=== PATIENT | male | born 1960 | race Caucasian/White ===

== ENCOUNTER 2017-01-05 11:29 | Day surgery (SDC) | payer OTHER ==
[2017-01-04 10:02] VITALS: BMI 27.8
[~2017-01-05 11:29] MED LIST: LACTATED RINGERS 1,000 ML IV SCH; LIDOCAINE 1% 20 ML VIAL (10MG/ML) FOR IV START INTRADERMA PRN
[2017-01-05 12:46] VITALS: TEMP 96.9
[2017-01-05] MEDS ORDERED: PROPOFOL 10 MG/ML 20 ML VIAL IV ONE (13:46)
[2017-01-05 14:37] VITALS: RESP 16
[2017-01-05 15:05] VITALS: BP 154/78; PULSE 78
--- NOTE | 2017-01-05 16:34 | P.PCN ---
Date of Procedure: 01/05/17 Preoperative Diagnosis: Postoperative Diagnosis: Procedure(s) Performed: Procedure: Colonoscopy and polypectomy. Preoperative diagnosis: Positive blood in the stools. Postoperative diagnosis: 1. Multiple small polyps, snared, but no large polyps or cancer. 2. Sigmoid diverticulosis with mucosal changes in the vicinity of diverticular orifices raising the possibility of prior bout(s) of diverticulitis. Preparation: HalfLytely prep. Sedation: Was provided by anesthesia. Brief clinical history: The patient is a 56-year-old male who is referred for this evaluation because of finding blood in his stools. He denied any abdominal symptoms, change in bowel habits or overt bleeding. Procedure: With the patient on his left lateral decubitus position and after informed consent and adequate sedation, the perianal area was inspected and it did not show any fissures or fistulas. There were no masses felt on digital rectal examination. The Olympus CFQ 160L video colonoscope was then inserted in the rectum in the usual fashion and advanced to the cecum. There was a small polyp in the cecum which was snared and retrieved by suction and there were multiple small polyps that were snared in the sigmoid, 2 of them where in the proximal sigmoid and 4 were in the distal sigmoid, and were submitted in 1 container. No large polyps or cancer were seen or any evidence of bleeding. I retroflexed the endoscope in the rectum before the endoscope was withdrawn. The patient tolerated the procedure well. Plan: The patient was reassured. Discussed dietary measures and I recommended repeat colonoscopy in 3 years. He will follow up with you as planned. Implants: Indications for Procedure: Operative Findings: Description of Procedure:
== END 2017-01-05 15:22 | disposition home or self-care (01) ==
LOC: ORWHC2ENDO 11:29
DX: D12.0 Benign neoplasm of cecum (principal); D12.5 Benign neoplasm of sigmoid colon; K57.30 Diverticulosis of large intestine without perforation or abscess without bleeding; I10 Essential (primary) hypertension; E78.5 Hyperlipidemia, unspecified; F17.200 Nicotine dependence, unspecified, uncomplicated; Z88.2 Allergy status to sulfonamides; Z79.899 Other long term (current) drug therapy
CPT/HCPCS: 45385; 88305; 88342; 88341; J2704

== ENCOUNTER 2017-03-18 12:34 | Inpatient (IN) | payer OTHER ==
[2017-03-18] MEDS ORDERED: RX INFO: IV CONTRAST WAS GIVEN 1 EACH MISC MISCELLANE PRN (13:03)
[2017-03-18] MEDS ORDERED: SODIUM CHLORIDE 0.9% 1,000 ML IV ONE (13:36)
[2017-03-18] MEDS: SODIUM CHLORIDE 0.9% 1,000 ML IV SCH ×3 (13:38→23:46)
--- NOTE | 2017-03-18 13:38 | ED ---
Abdominal Pain HPI <Sharath Martin - Last Filed: 03/18/17 17:06> - General Source: patient, RN notes reviewed, old records reviewed Mode of arrival: ambulatory Limitations: no limitations <Elham Morgan - Last Filed: 03/19/17 07:12> - General Chief Complaint: Abdominal Pain Stated Complaint: Abd Pain Time Seen by Provider: 03/18/17 12:48 - History of Present Illness Initial Comments: This is a 56-year-old male presenting to the emergency Department chief complaint of lower abdominal pain. Past few days. Patient reports that he feels like he is constipated, however the past day and half he has been having some loose greasy stools. Patient reports that it seems to be full and distended, however he seems to be passing some stool around it. Patient states that there is been no blood in his stools. He reports he had a colonoscopy 2 months ago did have some complications with bleeding afterwards but then that has subsided. Patient states that he's been feeling just generally ill. He did have an episode of vomiting yesterday. Surgical history includes a hernia repair when he was taking years old, no other abdominal surgeries noted. Patient denies any urinary symptoms including hematuria. (Elham Morgan) - Related Data Home Medications Medication Instructions Recorded Confirmed ALPRAZolam 1 mg PO DAILY PRN 01/04/17 03/18/17 Atenolol [Tenormin] 25 mg PO DAILY 01/04/17 03/18/17 Carisoprodol [Soma] 350 mg PO DAILY PRN 01/04/17 03/18/17 Cholecalciferol [Vitamin D3] 1,000 unit PO DAILY 01/04/17 03/18/17 Telmisartan 80 mg PO DAILY 01/04/17 03/18/17 Allergies Allergy/AdvReac Type Severity Reaction Status Date / Time Sulfa (Sulfonamide Allergy Swelling Verified 03/18/17 12:53 Antibiotics) Review of Systems ROS Other: All systems not noted in ROS Statement are negative. <Sharath Martin - Last Filed: 03/18/17 17:06> ROS Other: All systems not noted in ROS Statement are negative. <Elham Morgan - Last Filed: 03/19/17 07:12> ROS Statement: Those systems with pertinent positive or pertinent negative responses have been documented in the HPI. 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 RECENT POSITIVE HEMOCCULT TEST History of Any Multi-Drug Resistant Organisms: None Reported Past Surgical History: Hernia Repair Past Anesthesia/Blood Transfusion Reactions: No Reported Reaction Past Psychological History: Anxiety Smoking Status: Current every day smoker Past Alcohol Use History: None Reported Past Drug Use History: Marijuana - Past Family History Father Family Medical History: Cancer <Elham Morgan - Last Filed: 03/19/17 07:12> General Exam <Sharath Martin - Last Filed: 03/18/17 17:06> Limitations: no limitations General appearance: alert, in no apparent distress Head exam: Present: atraumatic, normocephalic, normal inspection Eye exam: Present: normal appearance, PERRL, EOMI. Absent: scleral icterus, conjunctival injection, periorbital swelling ENT exam: Present: normal exam, mucous membranes moist Neck exam: Present: normal inspection. Absent: tenderness, meningismus, lymphadenopathy Respiratory exam: Present: normal lung sounds bilaterally. Absent: respiratory distress, wheezes, rales, rhonchi, stridor Cardiovascular Exam: Present: regular rate, normal rhythm, normal heart sounds. Absent: systolic murmur, diastolic murmur, rubs, gallop, clicks GI/Abdominal exam: Present: soft, tenderness (Patient has some suprapubic tenderness.), normal bowel sounds. Absent: distended, guarding, rebound, rigid Extremities exam: Present: normal inspection, full ROM, normal capillary refill. Absent: tenderness, pedal edema, joint swelling, calf tenderness Back exam: Present: normal inspection Neurological exam: Present: alert, oriented X3, CN II-XII intact Psychiatric exam: Present: normal affect, normal mood Skin exam: Present: warm, dry, intact, normal color. Absent: rash <Elham Morgan - Last Filed: 03/19/17 07:12> - General Exam Comments Initial Comments: Is a 56-year-old male. No acute distress. (Elham Morgan) Medical Decision Making - Lab Data Result diagrams: 03/18/17 13:20 03/18/17 13:20 <Sharath Martin - Last Filed: 03/18/17 17:06> - Lab Data Result diagrams: 03/18/17 13:20 03/18/17 13:20 - Radiology Data Radiology results: report reviewed <EddieElham - Last Filed: 03/19/17 07:12> - Medical Decision Making I evaluated the patient at bedside, 65-year-old male with a complaint constipation and abdominal discomfort. The patient's CAT scan suggested diverticulitis with possible abscess in the intestinal wall versus neoplasm. This was discussed with the patient. The patient be admitted to general surgeon Dr. Colindres with whom I discussed the case as well. The patient will be continued on Levaquin and Flagyl this time. Dr. Martin (Sharath Martin) This is a 56-year-old male chief complaint of lower abdominal pain for the past few days. Patient has some areas of suprapubic tenderness. Patient labwork was reviewed. Mildly elevated white count 12.7. Rectal exam was benign, no significant stool noted. Patient CT abdomen and pelvis was performed. Evidence of diverticulitis and concern for a diverticular abscess. Patient was started on Flagyl and Levaquin. Discussed with Dr. Martin. Patient will be admitted with to Dr. Colindres service. He did have a colonoscopy [address] Owen. He reports that he did have some bleeding afterward, and was told that he did have some inflammation. (Elham Morgan) - Lab Data Lab Results 03/18/17 03/18/17 03/18/17 Range/Units 13:20 13:20 13:20 WBC 12.7 H (3.8-10.6) k/uL RBC 5.12 (4.30-5.90) m/uL Hgb 16.5 (13.0-17.5) gm/dL Hct 48.3 (39.0-53.0) % MCV 94.3 (80.0-100.0) fL MCH 32.3 (25.0-35.0) pg MCHC 34.3 (31.0-37.0) g/dL RDW 13.1 (11.5-15.5) % Plt Count 321 (150-450) k/uL Neutrophils % 87 % Lymphocytes % 7 % Monocytes % 4 % Eosinophils % 1 % Basophils % 0 % Neutrophils # 11.0 H (1.3-7.7) k/uL Lymphocytes # 0.9 L (1.0-4.8) k/uL Monocytes # 0.5 (0-1.0) k/uL Eosinophils # 0.1 (0-0.7) k/uL Basophils # 0.1 (0-0.2) k/uL Sodium 138 (137-145) mmol/L Potassium 4.4 (3.5-5.1) mmol/L Chloride 102 (98-107) mmol/L Carbon Dioxide 26 (22-30) mmol/L Anion Gap 10 mmol/L BUN 15 (9-20) mg/dL Creatinine 0.99 (0.66-1.25) mg/dL Est GFR (MDRD) Af Amer >60 (>60 ml/min/1.73 sqM) Est GFR (MDRD) Non-Af >60 (>60 ml/min/1.73 sqM) Glucose 93 (74-99) mg/dL Calcium 9.5 (8.4-10.2) mg/dL Total Bilirubin 0.9 (0.2-1.3) mg/dL AST 19 (17-59) U/L ALT 29 (21-72) U/L Alkaline Phosphatase 87 (38-126) U/L Total Protein 7.2 (6.3-8.2) g/dL Albumin 4.2 (3.5-5.0) g/dL Amylase <30 L (30-110) U/L Lipase 27 (23-300) U/L Urine Color Yellow Urine Appearance Clear (Clear) Urine pH 6.0 (5.0-8.0) Ur Specific Dorris >1.050 H (1.001-1.035) Urine Protein Trace H (Negative) Urine Glucose (UA) Negative (Negative) Urine Ketones 3+ H (Negative) Urine Blood Trace H (Negative) Urine Nitrite Negative (Negative) Urine Bilirubin Negative (Negative) Urine Urobilinogen <2.0 (<2.0) mg/dL Ur Leukocyte Esterase Negative (Negative) Urine RBC 2 (0-5) /hpf Urine WBC 1 (0-5) /hpf Ur Squamous Epith Cells <1 (0-4) /hpf Urine Mucus Rare H (None) /hpf Stool Occult Blood (Negative) 03/18/17 Range/Units 16:37 WBC (3.8-10.6) k/uL RBC (4.30-5.90) m/uL Hgb (13.0-17.5) gm/dL Hct (39.0-53.0) % MCV (80.0-100.0) fL MCH (25.0-35.0) pg MCHC (31.0-37.0) g/dL RDW (11.5-15.5) % Plt Count (150-450) k/uL Neutrophils % % Lymphocytes % % Monocytes % % Eosinophils % % Basophils % % Neutrophils # (1.3-7.7) k/uL Lymphocytes # (1.0-4.8) k/uL Monocytes # (0-1.0) k/uL Eosinophils # (0-0.7) k/uL Basophils # (0-0.2) k/uL Sodium (137-145) mmol/L Potassium (3.5-5.1) mmol/L Chloride (98-107) mmol/L Carbon Dioxide (22-30) mmol/L Anion Gap mmol/L BUN (9-20) mg/dL Creatinine (0.66-1.25) mg/dL Est GFR (MDRD) Af Amer (>60 ml/min/1.73 sqM) Est GFR (MDRD) Non-Af (>60 ml/min/1.73 sqM) Glucose (74-99) mg/dL Calcium (8.4-10.2) mg/dL Total Bilirubin (0.2-1.3) mg/dL AST (17-59) U/L ALT (21-72) U/L Alkaline Phosphatase (38-126) U/L Total Protein (6.3-8.2) g/dL Albumin (3.5-5.0) g/dL Amylase (30-110) U/L Lipase (23-300) U/L Urine Color Urine Appearance (Clear) Urine pH (5.0-8.0) Ur Specific Dorris (1.001-1.035) Urine Protein (Negative) Urine Glucose (UA) (Negative) Urine Ketones (Negative) Urine Blood (Negative) Urine Nitrite (Negative) Urine Bilirubin (Negative) Urine Urobilinogen (<2.0) mg/dL Ur Leukocyte Esterase (Negative) Urine RBC (0-5) /hpf Urine WBC (0-5) /hpf Ur Squamous Epith Cells (0-4) /hpf Urine Mucus (None) /hpf Stool Occult Blood Negative (Negative) - Radiology Data Focal thickening without an apple core lesion in the distal sigmoid colon region. Findings appear suggestive for diverticulitis with an abscess within the wall of the sigmoid colon. Differential would include neoplasm. (Elham Morgan) Disposition <Sharath Martin - Last Filed: 03/18/17 17:06> Time of Disposition: 16:31 <Elham Morgan - Last Filed: 03/19/17 07:12> Clinical Impression: Colonic diverticular abscess, Smoker, HTN (hypertension), Hyperlipemia Disposition: ADMITTED IP TO THIS HOSP Condition: Stable
[2017-03-18 13:50] LABS: Basophils # (A) 0.1 k/uL (0-0.2); Basophils % (A) 0 %; CH 32.2; CHCM 34.3; Eosinophils # (A) 0.1 k/uL (0-0.7); Eosinophils % (A) 1 %; HCT 48.3 % (39.0-53.0); HDW 2.26; HGB 16.5 gm/dL (13.0-17.5); Luc # (Auto) 0.15; Luc % (Auto) 1; Lymphocytes # (A) 0.9 k/uL (1.0-4.8); Lymphocytes % (A) 7 %; MCH 32.3 pg (25.0-35.0); MCHC 34.3 g/dL (31.0-37.0); MCV 94.3 fL (80.0-100.0); Mean Platelet Volume 6.6; Monocytes # (A) 0.5 k/uL (0-1.0); Monocytes % (A) 4 %; Neutrophils % (A) 87 %; RBC 5.12 m/uL (4.30-5.90); RDW 13.1 % (11.5-15.5); WBC 12.7 k/uL (3.8-10.6); WBC (Perox) 12.73
[2017-03-18 14:00] LABS: ALT 29 U/L (21-72); AST 19 U/L (17-59); Alkaline Phosphatase 87 U/L (38-126); Amylase <30 U/L (30-110); Anion Gap 10 mmol/L; Blood Urea Nitrogen 15 mg/dL (9-20); Calcium 9.5 mg/dL (8.4-10.2); Carbon Dioxide 26 mmol/L (22-30); Chloride 102 mmol/L (98-107); Glucose 93 mg/dL (74-99); Non-African American GFR(MDRD) >60 (>60 ml/min/1.73 sqM); Potassium 4.4 mmol/L (3.5-5.1); Sodium 138 mmol/L (137-145); Total Bilirubin 0.9 mg/dL (0.2-1.3); Total Protein 7.2 g/dL (6.3-8.2)
[2017-03-18 15:33] LABS: Appearance,Urine Clear (Clear); Bilirubin,Urine Negative (Negative); Glucose,Urine (UA) Negative (Negative); Ketones,Urine 3+ (Negative); Leukocyte Esterase,Urine Negative (Negative); Mucus,Urine Rare /hpf; Nitrite,Urine Negative (Negative); Particle Count 3190; Protein,Urine Trace (Negative); RBC,Urine 2 /hpf (0-5); Squamous Epithelial Cell,Urine <1 /hpf (0-4); UA Billing (MACRO vs. MICRO) MICRO; Urobilinogen,Urine <2.0 mg/dL (<2.0); WBC,Urine 1 /hpf (0-5)
[2017-03-18 15:35] LABS: Specific Gravity,Urine >1.050 (1.001-1.035)
[2017-03-18] MEDS ORDERED: HYDROmorphone 1 MG/ML 1 ML SYRINGE IVP STA (15:50)
--- NOTE | 2017-03-18 16:09 | CT ---
EXAMINATION TYPE: CT abdomen pelvis w con DATE OF EXAM: 03/18/2017 COMPARISON: NONE INDICATION: Mid Pelvic pain for 5 days. DLP: 1575 mGycm, Automated exposure control for dose reduction was used. CONTRAST: 100 mL of Omnipaque 300. Study performed without Oral Contrast TECHNIQUE: Axial images were obtained from above the diaphragm to the pubic rami in the axial plane a t 5 mm thick sections. Reconstructed images are reviewed on the computer in the coronal plane. FINDINGS: Limited CT sections are obtained the lung bases. The lung bases are clear. Coronary artery calcific ation is present. CT ABDOMEN: Liver: There is mild fatty infiltration of the liver. Spleen: Normal Pancreas: Normal Adrenal glands: The adrenal glands are normal. Gallbladder: Normal Kidneys: No masses are evident. No hydronephrosis is present. There is a 0.8 cm cyst on the mid to inferior anterior left kidney. Couple small cortical renal cysts or on the posterior right mid kidney measuring 0.8-1.1 cm in size. Delayed images were obtained through the kidneys, which remain unrema rkable. Aorta: Vascular calcification is within the aorta. Inferior vena cava: Normal. CT PELVIS: Loops of bowel within the abdomen and pelvis are normal. There are loops of bowel which are incom pletely distended or lack oral contrast limiting their evaluation. Some mild inflammatory changes adjacent to the distal sigmoid colon. There is a low-density collectio n within the wall of the sigmoid colon measuring 1.6 x 2.2 cm suspicious for abscess. Neoplasm with n ecrosis could be considered within the differential. Correlate with symptoms. Appendix: Normal as visualized. Urinary bladder: Normal. Genitourinary structures: Prostate contains calcification Osseous structures: No suspicious lytic or sclerotic lesions. IMPRESSIONS: 1. Focal thickening without an apple core lesion in the distal sigmoid colon region. Findings appear suggestive for diverticulitis with an abscess within the wall of the sigmoid colon. Differential wou ld include neoplasm.
[2017-03-18] MEDS ORDERED: NICOTINE 21MG/24HR PATCH TRANSDERM STA (16:23)
[2017-03-18] MEDS ORDERED: LEVOFLOXACIN 750MG-D5W PMX 750 MG in DEXTROSE/WATER 1 150ML.BAG IVPB STA (16:28)
[2017-03-18] MEDS ORDERED: metroNIDAZOLE-NS PMX 500 MG in SALINE 1 100ML.BAG IVPB STA (16:28)
[2017-03-18 17:00] VITALS: RESP 18
[2017-03-18] MEDS ORDERED: KETOROLAC 30 MG/ML 1 ML VIAL IVP PRN (17:03)
[2017-03-18] MEDS ORDERED: ACETAMINOPHEN TAB 325 MG TAB PO PRN (17:03)
[2017-03-18] MEDS ORDERED: ONDANSETRON 4 MG/2 ML VIAL IVP PRN (17:03)
[2017-03-18] MEDS ORDERED: IBUPROFEN 400 MG TAB PO PRN (17:03)
[2017-03-18] MEDS ORDERED: NALOXONE 0.4 MG/ML 1 ML VIAL IV PRN (17:03)
[2017-03-18] MEDS ORDERED: CARISOPRODOL 350 MG TAB PO PRN (17:58)
[2017-03-18] MEDS ORDERED: ALPRAZolam 0.5 MG TAB PO PRN (17:58)
[2017-03-18] MEDS: metroNIDAZOLE-NS PMX 500 MG in SALINE 1 100ML.BAG IVPB SCH ×4 (18:38→23:46)
[2017-03-18 18:57] VITALS: BMI 28.5
[2017-03-18] MEDS: HYDROmorphone 1 MG/ML 1 ML SYRINGE IV PRN ×2 (19:47→23:47)
[2017-03-19] MEDS: SODIUM CHLORIDE 0.9% 1,000 ML IV SCH ×5 (00:46→21:13)
[2017-03-19] MEDS: HYDROmorphone 1 MG/ML 1 ML SYRINGE IV PRN (04:07)
[2017-03-19] MEDS: metroNIDAZOLE-NS PMX 500 MG in SALINE 1 100ML.BAG IVPB SCH ×3 (05:47→18:34)
[2017-03-19 08:01] LABS: Basophils % (A) 1 %; CH 32.6; CHCM 33.7; Eosinophils # (A) 0.1 k/uL (0-0.7); Eosinophils % (A) 1 %; HCT 46.2 % (39.0-53.0); HDW 2.28; Luc # (Auto) 0.18; Luc % (Auto) 2; Lymphocytes # (A) 0.8 k/uL (1.0-4.8); Lymphocytes % (A) 10 %; MCH 31.6 pg (25.0-35.0); MCHC 32.4 g/dL (31.0-37.0); MCV 97.3 fL (80.0-100.0); Mean Platelet Volume 7.1; Monocytes # (A) 0.4 k/uL (0-1.0); Monocytes % (A) 5 %; Neutrophils # (A) 6.3 k/uL (1.3-7.7); Neutrophils % (A) 81 %; RBC 4.75 m/uL (4.30-5.90); RDW 13.7 % (11.5-15.5); WBC 7.8 k/uL (3.8-10.6); WBC (Perox) 8.13
[2017-03-19] MEDS: CHOLECALCIFEROL 1,000 UNIT TAB PO SCH (08:05)
[2017-03-19] MEDS: ATENOLOL 25 MG TAB PO SCH (08:05)
[2017-03-19] MEDS: LOSARTAN 50 MG TAB PO SCH (08:06)
[2017-03-19] MEDS: PANTOPRAZOLE 40 MG/10 ML VIAL IV SCH (08:06)
[2017-03-19 08:20] LABS: ALT 32 U/L (21-72); AST 19 U/L (17-59); Alkaline Phosphatase 73 U/L (38-126); Anion Gap 11 mmol/L; Blood Urea Nitrogen 11 mg/dL (9-20); Calcium 8.8 mg/dL (8.4-10.2); Carbon Dioxide 22 mmol/L (22-30); Chloride 102 mmol/L (98-107); Glucose 88 mg/dL (74-99); Non-African American GFR(MDRD) >60 (>60 ml/min/1.73 sqM); Potassium 4.2 mmol/L (3.5-5.1); Sodium 135 mmol/L (137-145); Total Bilirubin 0.6 mg/dL (0.2-1.3); Total Protein 6.1 g/dL (6.3-8.2)
--- NOTE | 2017-03-19 12:52 | P.GSHP ---
History of Present Illness H&P Date: 03/19/17 Chief Complaint: LLQ pain 56 years old male presented to ER with sharp left lower quadrant pain 9/10 . No fever, chills or rigors. Computed tomography scan of the abdomen and pelvis showed sigmoid diverticulitis with intramural abscess. No free air. Pain resolved at the time of my exam. Last colonoscopy [address] Vu - Review of Systems Comment: Constitutional: Denies fever, weight loss or loss of appetite HEENT: No difficulty in vision or hearing. Denies dysphagia. Cardiovascular: Denies chest pain, palpitations, dizziness, shortness of breath. Respiratory: Chronic smoker Gastrointestinal: No recent change in bowel habits, no abdominal pain, no nausea or vomiting. Integumentary: No rash or skin ulcers Genitourinary: No urinary incontinence, hematuria or dysuria Neurologic: No seizures, denies weakness in upper or lower extremities Musculoskeletal: Occasional left knee pain. 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 RECENT POSITIVE HEMOCCULT TEST History of Any Multi-Drug Resistant Organisms: None Reported Past Surgical History: Hernia Repair Past Anesthesia/Blood Transfusion Reactions: No Reported Reaction Past Psychological History: Anxiety Smoking Status: Current every day smoker Past Alcohol Use History: None Reported Past Drug Use History: Marijuana - Past Family History Father Family Medical History: Cancer Medications and Allergies Home Medications Medication Instructions Recorded Confirmed Type ALPRAZolam 1 mg PO DAILY PRN 01/04/17 03/18/17 History Atenolol [Tenormin] 25 mg PO DAILY 01/04/17 03/18/17 History Carisoprodol [Soma] 350 mg PO DAILY PRN 01/04/17 03/18/17 History Cholecalciferol [Vitamin D3] 1,000 unit PO DAILY 01/04/17 03/18/17 History Telmisartan 80 mg PO DAILY 01/04/17 03/18/17 History Allergies Allergy/AdvReac Type Severity Reaction Status Date / Time Sulfa (Sulfonamide Allergy Swelling Verified 03/18/17 12:53 Antibiotics) Surgical - Exam Vital Signs Temp Pulse Resp BP Pulse Ox 99.1 F 112 H 20 140/93 95 03/18/17 12:43 03/18/17 12:43 03/18/17 12:43 03/18/17 12:43 03/18/17 12:43 General: Patient is alert and oriented to time, place and person and cooperative with exam. He is not in acute distress. HEENT: No pallor, no icterus, left eye blindness Chest: Bilateral equal breath sounds present. No wheezes, no crackles. Cardiovascular: Regular rate and rhythm. Abdomen: Soft, nondistended. Left lower quadrant - no tenderness Integumentary: No active ulcers or discharge. Neurologic: Cranial nerves II-XII intact. Strength upper and lower extremities 5/5. No focal neurologic deficits. Gait is normal. Psychiatric: No anxiety or psychosis. Results - Labs 03/19/17 07:38 03/19/17 07:38 Abnormal Lab Results - Last 24 Hours (Table) 03/18/17 03/18/17 03/18/17 Range/Units 13:20 13:20 13:20 WBC 12.7 H (3.8-10.6) k/uL Neutrophils # 11.0 H (1.3-7.7) k/uL Lymphocytes # 0.9 L (1.0-4.8) k/uL Sodium (137-145) mmol/L Plasma Lactic Acid Juan (0.7-2.0) mmol/L Total Protein (6.3-8.2) g/dL Amylase <30 L (30-110) U/L Ur Specific [place] >1.050 H (1.001-1.035) Urine Protein Trace H (Negative) Urine Ketones 3+ H (Negative) Urine Blood Trace H (Negative) Urine Mucus Rare H (None) /hpf 03/19/17 03/19/17 03/19/17 Range/Units 01:10 07:38 07:38 WBC (3.8-10.6) k/uL Neutrophils # (1.3-7.7) k/uL Lymphocytes # 0.8 L (1.0-4.8) k/uL Sodium 135 L (137-145) mmol/L Plasma Lactic Acid Juan 0.6 L (0.7-2.0) mmol/L Total Protein 6.1 L (6.3-8.2) g/dL Amylase (30-110) U/L Ur Specific [place] (1.001-1.035) Urine Protein (Negative) Urine Ketones (Negative) Urine Blood (Negative) Urine Mucus (None) /hpf Diabetes panel 03/18/17 03/19/17 Range/Units 13:20 07:38 Sodium 138 135 L (137-145) mmol/L Potassium 4.4 4.2 (3.5-5.1) mmol/L Chloride 102 102 (98-107) mmol/L Carbon Dioxide 26 22 (22-30) mmol/L BUN 15 11 (9-20) mg/dL Creatinine 0.99 0.85 (0.66-1.25) mg/dL Glucose 93 88 (74-99) mg/dL Calcium 9.5 8.8 (8.4-10.2) mg/dL AST 19 19 (17-59) U/L ALT 29 32 (21-72) U/L Alkaline Phosphatase 87 73 (38-126) U/L Total Protein 7.2 6.1 L (6.3-8.2) g/dL Albumin 4.2 3.5 (3.5-5.0) g/dL Calcium panel 03/18/17 03/19/17 Range/Units 13:20 07:38 Calcium 9.5 8.8 (8.4-10.2) mg/dL Albumin 4.2 3.5 (3.5-5.0) g/dL Pituitary panel 03/18/17 03/19/17 Range/Units 13:20 07:38 Sodium 138 135 L (137-145) mmol/L Potassium 4.4 4.2 (3.5-5.1) mmol/L Chloride 102 102 (98-107) mmol/L Carbon Dioxide 26 22 (22-30) mmol/L BUN 15 11 (9-20) mg/dL Creatinine 0.99 0.85 (0.66-1.25) mg/dL Glucose 93 88 (74-99) mg/dL Calcium 9.5 8.8 (8.4-10.2) mg/dL Adrenal panel 03/18/17 03/19/17 Range/Units 13:20 07:38 Sodium 138 135 L (137-145) mmol/L Potassium 4.4 4.2 (3.5-5.1) mmol/L Chloride 102 102 (98-107) mmol/L Carbon Dioxide 26 22 (22-30) mmol/L BUN 15 11 (9-20) mg/dL Creatinine 0.99 0.85 (0.66-1.25) mg/dL Glucose 93 88 (74-99) mg/dL Calcium 9.5 8.8 (8.4-10.2) mg/dL Total Bilirubin 0.9 0.6 (0.2-1.3) mg/dL AST 19 19 (17-59) U/L ALT 29 32 (21-72) U/L Alkaline Phosphatase 87 73 (38-126) U/L Total Protein 7.2 6.1 L (6.3-8.2) g/dL Albumin 4.2 3.5 (3.5-5.0) g/dL Assessment and Plan (1) Colonic diverticular abscess Status: Acute (2) HTN (hypertension) Status: Acute (3) Hyperlipemia Status: Acute (4) Smoker Status: Acute Plan: 1. 56 years old male with diverticulitis with intramural abscess. No peritonitis or free air on presentation. 2. On IV antibiotics Levaquin and Flagyl. 3. No leukocytosis. Continue IV antibiotics. 4. Start clear liquid diet advance as tolerated 5. Discharge planning and next 24 hours with byoral antibiotics 6. Smoking cessation counseling done for more than 3 minutes.
[2017-03-19] MEDS: NICOTINE 21MG/24HR PATCH TRANSDERM SCH (15:20)
[2017-03-19] MEDS ORDERED: LEVOFLOXACIN 750MG-D5W PMX 750 MG in DEXTROSE/WATER 1 150ML.BAG IVPB SCH (17:00)
[2017-03-20] MEDS: metroNIDAZOLE-NS PMX 500 MG in SALINE 1 100ML.BAG IVPB SCH ×2 (00:02→06:50)
[2017-03-20] MEDS: SODIUM CHLORIDE 0.9% 1,000 ML IV SCH ×2 (06:50→08:21)
[2017-03-20 07:28] VITALS: BP 134/82; PULSE 79; TEMP 98.6
[2017-03-20] MEDS: CHOLECALCIFEROL 1,000 UNIT TAB PO SCH (08:21)
[2017-03-20] MEDS: LOSARTAN 50 MG TAB PO SCH (08:21)
[2017-03-20] MEDS: NICOTINE 21MG/24HR PATCH TRANSDERM SCH (08:21)
[2017-03-20] MEDS: ATENOLOL 25 MG TAB PO SCH (08:21)
[2017-03-20] MEDS: PANTOPRAZOLE 40 MG/10 ML VIAL IV SCH (08:22)
[2017-03-20 08:34] LABS: Basophils # (A) 0.1 k/uL (0-0.2); Basophils % (A) 1 %; CH 32.7; CHCM 33.8; Eosinophils # (A) 0.1 k/uL (0-0.7); Eosinophils % (A) 2 %; HCT 47.1 % (39.0-53.0); HDW 2.32; HGB 15.1 gm/dL (13.0-17.5); Luc # (Auto) 0.28; Luc % (Auto) 4; Lymphocytes # (A) 1.3 k/uL (1.0-4.8); Lymphocytes % (A) 18 %; MCH 31.1 pg (25.0-35.0); Mean Platelet Volume 7.1; Monocytes # (A) 0.6 k/uL (0-1.0); Monocytes % (A) 8 %; Neutrophils # (A) 5.1 k/uL (1.3-7.7); Neutrophils % (A) 68 %; RBC 4.86 m/uL (4.30-5.90); RDW 13.8 % (11.5-15.5); WBC 7.4 k/uL (3.8-10.6); WBC (Perox) 7.33
[2017-03-20 09:40] LABS: ALT 40 U/L (21-72); AST 26 U/L (17-59); Alkaline Phosphatase 72 U/L (38-126); Anion Gap 12 mmol/L; Blood Urea Nitrogen 11 mg/dL (9-20); Carbon Dioxide 21 mmol/L (22-30); Chloride 106 mmol/L (98-107); Glucose 93 mg/dL (74-99); Non-African American GFR(MDRD) >60 (>60 ml/min/1.73 sqM); Potassium 4.3 mmol/L (3.5-5.1); Sodium 139 mmol/L (137-145); Total Bilirubin 0.4 mg/dL (0.2-1.3)
--- NOTE | 2017-03-20 11:39 | P.DS ---
Providers Date of admission: 03/18/17 18:06 Expected date of discharge: 03/20/17 Attending physician: Liliana Colindres Primary care physician: [facility] Course: 56-year-old male presented to the emergency room on the day of admission with a chief complaint of developing bilateral lower abdominal pain onset several days prior. Patient stated that he had been feeling constipated. He stated that he felt full and distended. Patient stated the pain was sharp and mostly in the left lower quadrant He stated there was no blood in the stool. Patient stated he did have a colonoscopy done1- 2 months ago. Patient was requesting to follow -up with a new surgeon requested to not want to see the surgeon who did the colonoscopy To his knowledge the colonoscopy showed no acute findings. Patient had a CAT scan of the abdomen pelvis it did show sigmoid diverticulitis with intramural abscess. Patient was started on IV antibiotics on admission the white count was 12.7. On the of this down to 7.4. Patient was up ambulating in the hallway and was afebrile she was tolerating a diet. Patient stated he was anxious to be discharged home felt significantly improved. Impression discharge diagnosis Present on admission acute left lower abdominal pain suspect due to Colonic diverticular abscess Current every day smoker Hyperlipidemia Hypertension Present on admission acute left lower quadrant pain suspect due to diverticulitis with intramural abscess The above impression and plan of care have been discussed and directed by signing physician. Leonela Pozo nurse practitioner acting as scribe for signing physician. Patient Condition at Discharge: Stable Plan - Discharge Summary New Discharge Prescriptions: New Levofloxacin [Levaquin] 750 mg PO DAILY #14 tab metroNIDAZOLE [Flagyl] 500 mg PO Q6H #56 tab Continue Cholecalciferol [Vitamin D3] 1,000 unit PO DAILY Carisoprodol [Soma] 350 mg PO DAILY PRN PRN Reason: MUSCLE SPASMS Atenolol [Tenormin] 25 mg PO DAILY Telmisartan 80 mg PO DAILY ALPRAZolam 1 mg PO DAILY PRN PRN Reason: Anxiety Discharge Medication List ALPRAZolam 1 mg PO DAILY PRN 01/04/17 [History] Atenolol [Tenormin] 25 mg PO DAILY 01/04/17 [History] Carisoprodol [Soma] 350 mg PO DAILY PRN 01/04/17 [History] Cholecalciferol [Vitamin D3] 1,000 unit PO DAILY 01/04/17 [History] Telmisartan 80 mg PO DAILY 01/04/17 [History] Levofloxacin [Levaquin] 750 mg PO DAILY #14 tab 03/20/17 [Rx] metroNIDAZOLE [Flagyl] 500 mg PO Q6H #56 tab 03/20/17 [Rx] Follow up Appointment(s)/Referral(s): Orlin Albrecht DO [Primary Care Provider] - 1-2 days Liliana Colindres MD [STAFF PHYSICIAN] - 4 Weeks Patient Instructions/Handouts: Diverticulitis (DC) Discharge Disposition: HOME SELF-CARE
== END 2017-03-20 12:15 | disposition home or self-care (01) | DRG 392 ==
LOC: EC 12:34 → 4MS4W 18:06
PROVIDERS: ADMIT Surgery; ATTEND Surgery
DX: K57.20 Diverticulitis of large intestine with perforation and abscess without bleeding (principal); I10 Essential (primary) hypertension; E78.5 Hyperlipidemia, unspecified; F17.200 Nicotine dependence, unspecified, uncomplicated; F41.9 Anxiety disorder, unspecified; H54.42 Blindness, left eye, normal vision right eye; H91.90 Unspecified hearing loss, unspecified ear; K59.00 Constipation, unspecified; Z79.899 Other long term (current) drug therapy; Z88.2 Allergy status to sulfonamides
CPT/HCPCS: 36415; 74177; 80053; 81001; 82150; 82272; 83605; 83690; 85025; 87040; 96361; 96365; 96366; 96375; 99285

== ENCOUNTER → 2017-11-28 | Outpatient (CLI) | payer OTHER ==
--- NOTE | 2017-11-28 11:21 | ECHOS ---
STRESS ECHOCARDIOGRAM DATE OF SERVICE: 11/28/2017 INDICATIONS: Chest pain. MEDICATIONS: BASELINE HEART RATE: 90 BASELINE BLOOD PRESSURE: 108/84 MAXIMUM HEART RATE: 136 MAXIMUM BLOOD PRESSURE: 200/91 85% MPHR: 138 100% MPHR: 162 METS: 7.3 MAXIMUM STAGE REACHED: II TOTAL EXERCISE TIME: 6 minutes CLINICAL INFORMATION: STRESS DATA: Pretesting physical examination showed a heart rate of 90 pressure is 108/84 mmHg. Baseline EKG showed sinus mechanism. The patient exercised on the treadmill according to Kalyan protocol for a total of 6 minutes and achieved 7.3 METs. Max heart rate was 136 which is about 83% of maximum predicted heart rate. Maximum blood pressure was 200/91 mmHg. Clinically the patient did not have any symptoms of chest pain or discomfort during the testing or in the recovery time. The EKG did not show any significance for ischemic changes. ECHOCARDIOGRAM IMAGES: Echocardiogram images from parasternal long axis view, parasternal short axis view, apical 4 chambers and apical 2 chambers view were obtained as the baseline images, at the peak of the heart rate as well as on recovery and the echocardiogram images showed good augmentation in the left ventricular systolic function without any evidence of wall motion abnormalities consistent with ischemia. CONCLUSION: 1. Good exercise capacity. 2. Normal EKG in response to exercise. 3. Normal echocardiogram in response to exercise. 4. Essentially normal stress echo for the patient. MMODL / IJN: [id number] /
== END | disposition home or self-care (01) ==
LOC: RADNMMAIN 09:48
PROVIDERS: ATTEND Family Medicine
DX: R94.31 Abnormal electrocardiogram [ECG] [EKG] (principal)
CPT/HCPCS: 93351

== ENCOUNTER → 2022-05-10 | Outpatient (CLI) | payer OTHER ==
--- NOTE | 2022-05-11 02:55 | MR ---
EXAMINATION TYPE: MR knee LT wo con DATE OF EXAM: 05/10/2022 COMPARISON: None HISTORY: Left knee pain, injured while lifting heavy object. Multiplanar multiecho imaging of the left knee performed without contrast. There is knee joint effusion. The anterior and posterior cruciate ligaments are intact. The collatera l ligaments are intact. Patella is intact. There is a small horizontal tear of the posterior horn med ial meniscus extending to the inferior surface. The lateral meniscus appears intact. No evidence of a fracture. No focal bone destruction. The joint spaces are fairly normal. IMPRESSION: Small tear of the posterior horn medial meniscus. Moderate knee joint effusion. No fracture. No evide nce of ligamentous tear.
== END | disposition home or self-care (01) ==
LOC: RADMRIMAIN 17:43
PROVIDERS: ATTEND Orthopaedic Surgery
DX: M23.222 Derangement of posterior horn of medial meniscus due to old tear or injury, left knee (principal); M25.462 Effusion, left knee

== ENCOUNTER → 2022-06-21 | Outpatient (CLI) | payer OTHER ==
[2022-06-21 22:56] LABS: Anion Gap 9.7 mmol/L (10.00-18.00); Carbon Dioxide 27.3 mmol/L (20.0-27.5); Potassium 4.9 mmol/L (3.5-5.5)
[2022-06-21 23:33] LABS: Basophils # (A) 0.14 X 10*3/uL (0.00-0.10); Eosinophils # (A) 0.28 X 10*3/uL (0.04-0.35); Eosinophils % (A) 2.1 %; HCT 48.3 % (39.6-50.0); HGB 15.7 g/dL (13.0-17.0); Immature Grans, Automated 0.6 %; Lymphocytes # (A) 3.27 X 10*3/uL (0.90-5.00); MCH 31.4 pg (27.0-32.0); MCHC 32.5 g/dL (32.0-37.0); MCV 96.6 fL (80.0-97.0); Mean Platelet Volume 10.5 fL (9.5-12.2); Monocytes # (A) 0.86 X 10*3/uL (0.20-1.00); Monocytes % (A) 6.3 %; NRBC Per 100 WBC 0 /100 WBCS (0.0-0.0); Neutrophils # (A) 8.99 X 10*3/uL (1.80-7.70); Platelet Count 279 X 10*3/uL (140-440); RDW 13.3 % (11.5-14.5); WBC 13.62 X 10*3/uL (4.50-10.00)
== END | disposition home or self-care (01) ==
LOC: LABPAT 15:39
PROVIDERS: ATTEND Orthopaedic Surgery
DX: Z01.818 Encounter for other preprocedural examination (principal); I45.10 Unspecified right bundle-branch block; M23.92 Unspecified internal derangement of left knee
CPT/HCPCS: 36415; 80051; 85025; 93005

== ENCOUNTER → 2022-06-27 | Outpatient (CLI) | payer OTHER ==
[2022-06-27 23:44] LABS: Basophils # (A) 0.15 X 10*3/uL (0.00-0.10); Basophils % (A) 1.1 %; Eosinophils # (A) 0.29 X 10*3/uL (0.04-0.35); Eosinophils % (A) 2.1 %; HCT 50.2 % (39.6-50.0); HGB 16.2 g/dL (13.0-17.0); Immature Grans, Automated 0.6 %; Lymphocytes # (A) 3.71 X 10*3/uL (0.90-5.00); Lymphocytes % (A) 26.5 %; MCH 32.1 pg (27.0-32.0); MCHC 32.3 g/dL (32.0-37.0); MCV 99.4 fL (80.0-97.0); Mean Platelet Volume 10.3 fL (9.5-12.2); Monocytes # (A) 1.02 X 10*3/uL (0.20-1.00); Monocytes % (A) 7.3 %; NRBC Per 100 WBC 0 /100 WBCS (0.0-0.0); Neutrophils # (A) 8.74 X 10*3/uL (1.80-7.70); Neutrophils % (A) 62.4 %; Platelet Count 298 X 10*3/uL (140-440); RBC 5.05 X 10*6/uL (4.40-5.60); RDW 13.2 % (11.5-14.5); WBC 13.99 X 10*3/uL (4.50-10.00)
== END | disposition home or self-care (01) ==
LOC: LABWHC1 16:27
PROVIDERS: ATTEND Family Medicine
DX: R89.9 Unspecified abnormal finding in specimens from other organs, systems and tissues (principal)
CPT/HCPCS: 36415; 85025

== ENCOUNTER 2022-06-30 11:05 | Day surgery (SDC) | payer OTHER ==
--- NOTE | 2022-06-30 07:35 | HP ---
HISTORY AND PHYSICAL HISTORY OF PRESENT ILLNESS: Surya Muniz is a 61-year-old patient seen with progressive left knee pain. After treatment options were discussed with him, he elected to proceed with left knee arthroscopy. Consent was obtained. PAST MEDICAL HISTORY: Hypertension and hyperlipidemia. PAST SURGICAL HISTORY: Noncontributory. DAILY MEDICATIONS: 1. Atenolol. 2. Pravastatin. 3. Prilosec. ALLERGIES: Sulfa. SOCIAL HISTORY: He denies tobacco use. PHYSICAL EVALUATION OF THE LEFT KNEE: His range of motion is -3 to 120 degrees. Mild effusion. Tenderness, medial joint line. Positive medial Marly's. Ligaments stable. Hip rotation without pain. Distal neurovascular exam intact. IMAGING STUDIES: Radiographs of the left knee revealed some osteoarthritic changes. MRI of the left knee revealed a medial meniscal tear and an effusion. IMPRESSION: 1. Internal derangement of left knee with medial meniscal tear. 2. Hypertension. 3. Hyperlipidemia. PLAN: Left knee arthroscopy with partial medial meniscectomy and debridement. MMODL / IJN: [id number] /
[~2022-06-30 11:05] MED LIST changes: +DEXAMETHASONE SOD PHOSPHATE 4 MG/ML 1 ML VIAL IV ONE; +HYDROmorphone 0.5 MG/0.5 ML SYRINGE IVP PRN; -LIDOCAINE 1% 20 ML VIAL (10MG/ML) FOR IV START INTRADERMA PRN; +ONDANSETRON 4 MG/2 ML VIAL IVP ONE
[2022-06-30 11:51] VITALS: RESP 16; TEMP 97.8
[2022-06-30] MEDS ORDERED: MIDAZOLAM 2 MG/2 ML VIAL IVP ONE (11:56)
[2022-06-30] MEDS ORDERED: LIDOCAINE 2% INJ 20 MG/ML (2 ML VIAL) ONE (13:02)
[2022-06-30] MEDS ORDERED: SUCCINYLCHOLINE CHLORIDE 200 MG/10 ML VIAL IV ONE (13:02)
[2022-06-30] MEDS ORDERED: PROPOFOL 10 MG/ML 20 ML VIAL IV ONE (13:02)
[2022-06-30] MEDS ORDERED: fentaNYL (PF) 50 MCG/ML 2 ML AMP ONE (13:02)
[2022-06-30] MEDS ORDERED: MIDAZOLAM 2 MG/2 ML VIAL ONE (13:02)
[2022-06-30] MEDS ORDERED: BUPIVACAINE (PF) 0.25% 30 ML VIAL INTRAARTIC ONE (13:27)
[2022-06-30] MEDS ORDERED: LACTATED RINGERS 1,000 ML IV ONE (13:49)
--- NOTE | 2022-06-30 14:01 | P.OP ---
Date of Procedure: 06/30/22 Preoperative Diagnosis: Internal derangement left knee Postoperative Diagnosis: 1. Tear medial and lateral meniscus left knee 2. Grade 2 chondromalacia medial femoral condyle left knee 3. Reactive synovitis medial, lateral and suprapatellar compartments left knee Procedure(s) Performed: 1. Arthroscopic partial medial and lateral meniscectomy left knee 2. Arthroscopic chondroplasty medial femoral condyle left knee 3. Arthroscopic partial synovectomy medial, lateral and suprapatellar compartments left knee Anesthesia: MIKA, local Surgeon: Ricky Sepulveda Estimated Blood Loss (ml): 6 Pathology: none sent Condition: stable Disposition: PACU Indications for Procedure: 61-year-old patient seen with progressive left knee pain. After treatment options were discussed, he elected to proceed with arthroscopy. Operative Findings: see description of procedure Description of Procedure: Patient was taken to the operative suite. Patient underwent a general anesthetic by the department of anesthesia. Patient was given preoperative antibiotics. The left lower extremity was placed in a well-padded arthroscopic leg cardenas. The left leg was prepped and draped in the normal sterile orthopedic fashion. A lateral parapatellar and suprapatellar incision was made. Trochars were inserted. Arthroscopy was initiated. Suprapatellar pouch revealed diffuse thick reactive synovitis. The patellofemoral joint appeared to articulate congruently. There was grade 1 chondromalacia. The scope was guided into the medial gutter. No loose bodies or plica were identified. The scope was then guided into the medial compartment. A medial parapatellar incision was made. Trocar inserted followed by probe. There was a radial tear posterior horn medial meniscus. There were grade 2 chondromalacia changes the medial femoral condyle with some osteochondral flap tears present. There was some thick reactive synovitis anteriorly. I performed a partial medial meniscectomy getting down to stable meniscal tissue. I performed a chondroplasty of the medial femoral condyle getting down to stable osteochondral tissue. I performed a partial synovectomy decompressing the reactive synovitis anteriorly. The residual meniscus was stable. The residual osteochondral surface was stable. There was good decompression of the synovitis. Scope and probe were then guided into the intercondylar notch. Cruciates were identified, probed and found to be stable. The scope and probe were then guided into lateral compartment. There was a small radial tear midbody lateral meniscus. There was mild grade 1 chondromalacia of the lateral compartment. There was some thick reactive synovitis anteriorly. I performed a partial lateral meniscectomy. I performed a partial synovectomy. The residual meniscus was stable. There was good decompression of the synovitis. The scope was in guided back into the suprapatellar compartment. I introduced a motorized shaver into the suprapatellar compartment. I debrided some piecemeal fragments of meniscus that I encountered. I performed a partial synovectomy. The shaver was removed. I took one more look around the entire knee, no residual debris. Instruments were now removed from the joint. The joint was infiltrated with .25% Marcaine. Steri-Strips were applied to the portal sites. Sterile dressings were applied. The patient was placed into a RAE hose. No tourniquet was utilized. The patient was awakened, transferred to a bed and taken to recovery stable satisfactory condition.
[2022-06-30 14:39] VITALS: BP 163/80; PULSE 63
== END 2022-06-30 15:17 | disposition home or self-care (01) ==
LOC: OR 11:05
PROVIDERS: ATTEND Orthopaedic Surgery
DX: S83.242A Other tear of medial meniscus, current injury, left knee, initial encounter (principal); S83.282A Other tear of lateral meniscus, current injury, left knee, initial encounter; E78.5 Hyperlipidemia, unspecified; I10 Essential (primary) hypertension; Z88.2 Allergy status to sulfonamides; X58.XXXA Exposure to other specified factors, initial encounter
CPT/HCPCS: 29880; J2250; J0330; J1100; J0690; J2405; J3010; J2704; J2001

== ENCOUNTER → 2023-09-06 | Outpatient (CLI) | payer OTHER ==
--- NOTE | 2023-09-10 19:01 | MR ---
EXAMINATION TYPE: MR knee RT wo con DATE OF EXAM: 09/06/2023 COMPARISON: None HISTORY: 63-year-old male [id number] Rt knee pain TECHNIQUE: Multiplanar, multisequence imaging of the right knee is performed without IV contrast. FINDINGS: ACL, PCL, MCL, and LCL complex are intact. There is a large oblique tear extending throughout the posterior horn to the junction with the body o f the medial meniscus. Mild to moderate irregular cartilage loss throughout the mid aspect of the med ial compartment. There may be a small longitudinal tear at the posterior root of the lateral meniscus. No other discre te meniscal tear is seen. Moderate focal irregular cartilage loss medial weightbearing aspect of the lateral femoral condyle articular surface. Moderate irregular cartilage loss throughout the patellofemoral compartment. Extensor mechanism is intact. Some inhomogeneous signal at both the deep proximal patellar tendon fib ers as well as the quadriceps insertion. Small knee joint effusion. No Uriarte's cyst. Normal popliteal artery anatomy and muscle bulk. No suspicious bone marrow replacement. IMPRESSION: 1. Large oblique tear throughout the posterior horn of the medial meniscus extending to the junction with the meniscal body. 2. There may be a small longitudinal tear at the posterior root of the lateral meniscus. 3. Mild to moderate tricompartmental OA. 4. Mild quadriceps insertional and proximal patellar tendinosis.
== END | disposition home or self-care (01) ==
LOC: RADMRIMAIN 12:58
PROVIDERS: ATTEND Orthopaedic Surgery
DX: M17.11 Unilateral primary osteoarthritis, right knee (principal); M23.321 Other meniscus derangements, posterior horn of medial meniscus, right knee; M67.863 Other specified disorders of tendon, right knee

== ENCOUNTER → 2023-10-11 | Outpatient (CLI) | payer OTHER ==
--- NOTE | 2023-10-11 16:04 | CTL ---
EXAMINATION TYPE: CT Low Dose Lung DATE OF EXAM: 10/11/2023 3:54 PM CLINICAL INDICATION:Male, 63 years old with history of F17.210 NICOTINE DEPENDENCE, CIGARETTES, UNCOM PLIC; personal tobacco use , history of tobacco use. COMPARISON: None. TECHNIQUE: Multiple axial non-contrast scans were obtained from approximately the lung apices through the upper abdomen. Coronal and sagittal reformatted images were obtained. Low dose technique was uti lized. CT DLP: 123.8 mGycm, Automated exposure control for dose reduction was used. CT Contrast: Contrast used: None Oral contrast used: None FINDINGS: ======== Lack of intravenous contrast and low dose technique limits the evaluation of the vascular and soft ti ssue structures. LUNGS: No evidence of pulmonary fibrosis. No evidence of focal consolidation, pneumothorax or pleural effusion. Paraseptal emphysematous changes present in the lung apices. Nodules: RUL: None. RML: Single solid pulmonary nodule with spiculation identified in the right middle lobe measuring 1.5 cm (3:150). Additional pulmonary micronodules in the right middle lung. RLL: None. CLAUDIA: None. LLL: None. AIRWAY: Patent and unremarkable. HEART: Size within normal limits.Increased density within the coronary arteries may relate to scleros is versus vascular stents. MEDIASTINUM: No gross evidence of adenopathy. VASCULATURE: Atherosclerotic calcifications are present throughout the aorta and its branches. MUSCULOSKELETAL: Moderate disc degeneration changes are present throughout the thoracolumbar spine. SOFT TISSUES/LYMPH NODES: Unremarkable. LOWER NECK: No significant findings. UPPER ABDOMEN: No significant findings. IMPRESSION: 1. Right middle lung 1.5 cm solid pulmonary nodule. Recommend further evaluation. 2. Emphysematous changes of the lungs. CT LUNG RAD AND CT CHEST RECOMMENDATION: Lung-Rad 4B or 4X Very Suspicious: Follow-up Chest CT with o r without contrast or PET/CT and/or tissue sampling. PET/CT may be used when there is a > 8 mm solid component. S Modifier (other clinically significant findings): None Recommend smoking cessation (if current smoker), or continuation of smoking cessation (if prior smoke r). Annual screening for lung cancer with low-dose computed tomography is recommended in adults ages 55 to 77 years who have a 30 pack-year smoking history and currently smoke or have quit within the pa st 15 years. Screening should be discontinued once a person has not smoked for 15 years or develops a health problem that substantially limits life expectancy or the ability or willingness to have curat mireille lung surgery.
== END | disposition home or self-care (01) ==
LOC: RADCTMAIN 15:24
PROVIDERS: ATTEND Family Medicine
DX: Z12.2 Encounter for screening for malignant neoplasm of respiratory organs (principal); J43.9 Emphysema, unspecified; R91.1 Solitary pulmonary nodule; F17.210 Nicotine dependence, cigarettes, uncomplicated
CPT/HCPCS: 71271

== ENCOUNTER 2023-11-30 11:02 | Day surgery (SDC) | payer OTHER ==
[2023-11-24 15:27] VITALS: BMI 28.5
[~2023-11-30 11:02] MED LIST changes: -DEXAMETHASONE SOD PHOSPHATE 4 MG/ML 1 ML VIAL IV ONE; -HYDROmorphone 0.5 MG/0.5 ML SYRINGE IVP PRN; -ONDANSETRON 4 MG/2 ML VIAL IVP ONE
--- NOTE | 2023-11-30 11:37 | CT ---
EXAMINATION TYPE: CT chest wo con CT DLP: 596 mGycm, Automated exposure control for dose reduction was used. DATE OF EXAM: 11/30/2023 11:28 AM COMPARISON: 10/11/2023. 03/18/2017, 11/01/2023 CLINICAL INDICATION:Male, 63 years old with history of ion bronchoscopy; PHH, pre bronchial navigatio n TECHNIQUE: Multiple axial images were obtained through the chest. Sagittal and coronal reformats were created for review. Contrast used: mL of (None if empty) Oral contrast used: (None if empty) FINDINGS: LUNGS/ PLEURA: Similar right middle lobe1 11 mm spiculated nodule. No additional pulmonary nodules id entified. No focal consolidation, pneumothorax perfusion. Mild centrilobular and paraseptal emphysema changes throughout the lungs. AIRWAY: Patent and unremarkable. HEART: Size within normal limits. Moderate coronary artery atherosclerosis. MEDIASTINUM: No gross evidence of adenopathy. VASCULATURE: No aortic aneurysm. Scattered atherosclerosis of the arterial vasculature. MUSCULOSKELETAL: No acute osseous abnormalities SOFT TISSUES/LYMPH NODES: Unremarkable. LOWER NECK: No significant findings. UPPER ABDOMEN: Diffuse low-attenuation to the liver parenchyma. High density right renal cysts measur ing 35 Hounsfield units and up to 15 mm, previously in 2017 measuring 11. IMPRESSION: 1. Similar right middle lobe spiculated nodule measuring 11 mm. No enlarged mediastinal lymph nodes at this time. Findings concerning for primary malignancy. 2. Hepatic steatosis. 3. Indeterminate right posterior renal lesion which is mildly increased in size from 2017 from 11 mm to 15 mm. Cyst was not FDG avid on 11/01/2023 PET/CT.
[2023-11-30] MEDS: LACTATED RINGERS 1,000 ML IV SCH (12:07)
[2023-11-30] MEDS: ONDANSETRON 4 MG/2 ML VIAL ONE (12:09)
[2023-11-30] MEDS ORDERED: PROPOFOL 10 MG/ML 20 ML VIAL IV ONE (12:28)
[2023-11-30] MEDS ORDERED: GLYCOPYRROLATE 0.2 MG/ML 2 ML VIAL ONE (12:28)
[2023-11-30] MEDS ORDERED: ROCURONIUM 10 MG/ML (5 ML VIAL) IV ONE (12:28)
[2023-11-30] MEDS ORDERED: NEOSTIGMINE 1 MG/ML 10 ML VIAL ONE (12:28)
[2023-11-30] MEDS ORDERED: LIDOCAINE 1% INJ 10MG/ML (20 ML MDV) ONE (12:28)
[2023-11-30] MEDS ORDERED: fentaNYL (PF) 50 MCG/ML 2 ML AMP ONE (12:28)
--- NOTE | 2023-11-30 13:54 | P.PCN ---
Date of Procedure: 11/30/23 Operative Findings: Right middle lobe nodule, PET avid, 1.5 cm Postoperative Diagnosis: Right middle lobe nodule, PET avid, 1.5 cm Procedure(s) Performed: Flexible bronchoscopy Robotic-assisted transbronchial needle aspirate, transbronchial biopsies, transbronchial brushing of the right middle lobe nodule, including transbronchial biopsy , transbronchial brushing and a BAL Endobronchial ultrasound Anesthesia: MIKA Surgeon: Tomasa Retana Estimated Blood Loss (ml): 0 Pathology: other Condition: stable Disposition: same day Operative Findings: A physical exam was performed. Informed consent was obtained from the patient after explaining all the risks (pneumothorax, life threatening bleeding, infection and adverse effects due to medications), benefits and alternatives to the procedure which the patient appeared to understand and so stated. The patient was connected to the monitoring devices. General anesthesia was induced and the patient was intubated by anesthesia. A final timeout was performed and the procedure confirmed by the attending staff bronchoscopist. The bronchoscope was inserted and the airway examined. The airway examination revealed a normal trachea and normal airways. The flexible bronchoscope was removed and the robotic bronchoscope was inserted. Registration was completed. I next guided the robotic bronchoscope using the navigation system into the right middle lone medial segment. Once in proper position, the bronchoscope was frozen. The radial EBUS probe was placed through the bronchoscope and confirmed abnormal u/s images vs normal lung. A needle was placed through the working channel and under fluoroscopic guidance, we sampled the area thought to have the mass twice. We then used a cloud biopsy pattern with ultrasound confirmation for 2 additional passes with the needle. U/S evaluation was then used to reconfirm location. Forceps were next introduced through working channel and extended the appropriate distance and 3 transbronchial biopsies were performed using fluoroscopic guidance. The u/s pr obe was then reinserted to confirm location. When confirmed this process was repeated for a total of 6 transbronchial biopsies. 40ml of saline was then instilled into the area of the lesion. The robotic bronchoscope was removed and the airway inspected with a flexible bronchoscope and 10 ml of effluent from the BAL was collected. The aspirate was bloody and ultimately declotted and based on that, the sample was discarded. Fluoroscopic check for pneumothorax was negative upon completion of the procedure. There was 0 ml blood loss with the procedure. At that point, the robot was disconnected. Endobronchial ultrasound was inserted and full evaluation of the mediastinum was done. Upon examination, there was no significant enlargement of the mediastinal lymph nodes at the various stations. Based on those findings, no biopsies were done. Endobronchial ultrasound was removed. Flex bronchoscope was inserted and regular suctioning was done. At the completion of the procedure, no residual secretions or bloody material within the airway. The bronchoscope was removed. The patient was extubated. FINDINGS: 1.The airways are normal. 2 Successful navigation, ultrasonographic identification, and biopsies of right middle lobe nodule 3.The the radial ultrasound view was concentric 4 endobronchial ultrasound, negative for any pathologic lymphadenopathy. RECOMMENDATIONS: Await pathology and cytology results The referring physician will be alerted to the results when available. The patient was advised to follow up with the referring physician with the biopsy results Patient will be called with results.
--- NOTE | 2023-11-30 14:03 | FL ---
EXAMINATION TYPE: FL bronchoscopy DATE OF EXAM: 11/30/2023 COMPARISON: NONE HISTORY: Bronchoscopy TECHNIQUE: Fluoroscopy. FINDINGS: Fluoroscopic guidance was provided during procedure. A total of 1 minute 42 seconds of fl uoroscopic time was utilized during the procedure and 0 spot images was acquired. Total dose area pr oduct (DAP) in uGy*m?, mGy*cm? (or similar): 2.3827. IMPRESSION: As Above.
[2023-11-30 14:26] VITALS: TEMP 97
--- NOTE | 2023-11-30 14:32 | XR ---
EXAMINATION TYPE: XR chest 1V DATE OF EXAM: 11/30/2023 COMPARISON: NONE HISTORY: Postbronchoscopy TECHNIQUE: Single frontal view of the chest is obtained. FINDINGS: There is a approximately 50% right-sided pneumothorax with no mediastinal deviation. Right lower lobe consolidation is seen. Nodule overlying the left lower lobe. Possibly a nipple shadow but should be followed on short-term basis. Degenerative changes of the spine. Nodule right middle lobe. IMPRESSION: 1. There is approximate 40% right-sided pneumothorax with no definite mediastinal deviation. Report w as called to referring clinician to 20 9:00 PM 12/10/2019. 2. Right middle lobe pulmonary nodule similar to CT scan.
--- NOTE | 2023-11-30 15:12 | XR ---
EXAMINATION TYPE: XR chest 1V DATE OF EXAM: 11/30/2023 COMPARISON: 12/10/2023 HISTORY: Tube placement TECHNIQUE: Single frontal view of the chest is obtained. FINDINGS: There is improved appearance of the right-sided pneumothorax now estimated at 20-30 [address] tube is noted in position. Left lung clear. Heart size stable. Nodule in the right middle lobe sta ble. Nipple shadow or nodule left lower lobe laterally stable. Osseous structures unchanged. IMPRESSION: Chest tube placement with reduction in size of the pneumothorax now measuring 20-30 % an d no mediastinal deviation.
[2023-11-30 15:55] VITALS: RESP 20
[2023-11-30] MEDS: IV FLUID CONTINUATION 100 ML IV ONE (16:24)
--- NOTE | 2023-11-30 16:49 | XR ---
EXAMINATION TYPE: XR chest 1V, XR chest 1V portable DATE OF EXAM: 11/30/2023 3:22 PM CLINICAL INDICATION:Male, 63 years old with history of POST NEUMO X2.; PHH COMPARISON: Chest radiograph same day. TECHNIQUE: XR chest 1V, XR chest 1V portable Frontal view of the chest. Two radiographs of the chest. FINDINGS: Lungs/Pleura: Underlying represent visceral pleural line remains with trace right pneumothorax. No le ft pneumothorax. Subsequent radiograph demonstrated the same pneumothorax. Pulmonary vascularity: Unremarkable. Heart/mediastinum: Cardiomediastinal silhouette is unremarkable. Musculoskeletal: No acute osseous pathology. IMPRESSION: Small right pneumothorax with subsequent radiograph also demonstrating same suspected pneumothorax.
[2023-11-30 17:26] VITALS: BP 170/76; PULSE 66
== END 2023-11-30 17:31 | disposition home or self-care (01) ==
LOC: ORWHC2ENDO 11:02
PROVIDERS: ATTEND Internal Medicine Critical Care Medicine
DX: R91.1 Solitary pulmonary nodule (principal); J44.9 Chronic obstructive pulmonary disease, unspecified; E78.5 Hyperlipidemia, unspecified; F17.200 Nicotine dependence, unspecified, uncomplicated; Z79.82 Long term (current) use of aspirin; Z79.899 Other long term (current) drug therapy
CPT/HCPCS: 88108; 88305; 88342; 88341; 87070; 87205; 87116; 87102; 87206; 71045; 71250; 31628; 31629; 31623; 31624; 31652; J2710; J2405; J2001; J3010; J2704; S2900; 87496; 87498; 87502; 87529; 87634; 87635; 87798

== ENCOUNTER → 2023-12-27 | Outpatient (CLI) | payer OTHER ==
[2023-12-27 16:16] LABS: INR 0.9 (<1.2); Partial Thromboplastin Time 25.5 sec (22.0-30.0); Prothrombin Time 10.4 sec (10.0-12.5)
[2023-12-27 18:34] LABS: Basophils # (A) 0.12 X 10*3/uL (0.00-0.10); Basophils % (A) 1.3 %; Eosinophils # (A) 0.41 X 10*3/uL (0.04-0.35); Eosinophils % (A) 4.3 %; HCT 46.3 % (39.6-50.0); HGB 15.5 g/dL (13.0-17.0); Lymphocytes # (A) 2.51 X 10*3/uL (0.90-5.00); Lymphocytes % (A) 26.2 %; MCH 31.9 pg (27.0-32.0); MCHC 33.5 g/dL (32.0-37.0); MCV 95.3 FL (80.0-97.0); Mean Platelet Volume 9.8 FL (9.5-12.2); Monocytes # (A) 0.62 X 10*3/uL (0.20-1.00); Monocytes % (A) 6.5 %; NRBC Per 100 WBC 0 X 10*3/uL (0.00-0.01); Neutrophils # (A) 5.89 X 10*3/uL (1.80-7.70); Neutrophils % (A) 61.3 %; Platelet Count 266 X 10*3/uL (140-440); RBC 4.86 X 10*6/uL (4.40-5.60); RDW 13.4 % (11.5-14.5); WBC 9.59 X 10*3/uL (4.50-10.00)
[2023-12-27 19:44] LABS: Blood Urea Nitrogen 11.5 mg/dL (9.0-27.0); Carbon Dioxide 25.3 mmol/L (21.6-31.8); Chloride 104 mmol/L (96-109); Glucose 90 mg/dL (70-110); Sodium 143 mmol/L (135-145)
[2023-12-27 19:53] LABS: Appearance,Urine Clear (Clear); Bilirubin,Urine Negative (Negative); Blood,Urine Negative (Negative); Color,Urine Yellow (Yellow); Ketones,Urine Negative (Negative); Nitrite,Urine Negative (Negative); Specific Gravity,Urine 1.013 (1.001-1.030)
== END | disposition home or self-care (01) ==
LOC: LABPAT 14:32
PROVIDERS: ATTEND Thoracic Surgery (Cardiothoracic Vascular Surgery)
DX: Z01.818 Encounter for other preprocedural examination (principal); I51.89 Other ill-defined heart diseases; R58 Hemorrhage, not elsewhere classified; R06.00 Dyspnea, unspecified; R94.31 Abnormal electrocardiogram [ECG] [EKG]; Z79.899 Other long term (current) drug therapy
CPT/HCPCS: 80051; 81003; 82565; 82947; 84520; 85025; 85610; 85730; 86850; 86900; 86901; 87086; 93005

== ENCOUNTER 2024-01-04 05:52 | Inpatient (IN) | payer OTHER ==
[2024-01-03 09:14] VITALS: BMI 26.9
[2024-01-04] MEDS: LACTATED RINGERS 1,000 ML IV SCH (06:50)
[2024-01-04] MEDS: IV FLUID CONTINUATION 1,000 ML IV ONE ×2 (06:50→07:00)
[2024-01-04] MEDS ORDERED: HYDROmorphone 0.5 MG/0.5 ML SYRINGE IVP PRN (07:00)
[2024-01-04] MEDS: ONDANSETRON 4 MG/2 ML VIAL IVP ONE (07:10)
[2024-01-04] MEDS: MIDAZOLAM 2 MG/2 ML VIAL IVP ONE (07:12)
[2024-01-04] MEDS: fentaNYL (PF) 50 MCG/1 ML VIAL IVP ONE (07:13)
[2024-01-04] MEDS ORDERED: ROCURONIUM 10 MG/ML (5 ML VIAL) IV ONE (07:32)
[2024-01-04] MEDS ORDERED: SUGAMMADEX SODIUM 200 MG/2 ML SDV IV ONE (07:32)
[2024-01-04] MEDS ORDERED: SUCCINYLCHOLINE CHLORIDE 200 MG/10 ML VIAL IV ONE (07:32)
[2024-01-04] MEDS ORDERED: HYDROmorphone (PF) 1 MG/ML ONE (07:32)
[2024-01-04] MEDS ORDERED: ROPIVACAINE 5 MG/ML 30 ML VIAL ONE (07:32)
[2024-01-04] MEDS ORDERED: MIDAZOLAM 2 MG/2 ML VIAL ONE (07:32)
[2024-01-04] MEDS ORDERED: PROPOFOL 10 MG/ML 20 ML VIAL IV ONE (07:32)
[2024-01-04] MEDS ORDERED: KETAMINE HCL IN 0.9 % NACL 50 MG/5 ML SYRINGE ONE (07:32)
[2024-01-04] MEDS ORDERED: LIDOCAINE 1% INJ 10MG/ML (20 ML MDV) ONE (07:32)
[2024-01-04] MEDS ORDERED: PHENYLEPHRINE 10 MG/ML VIAL ONE (07:32)
[2024-01-04] MEDS ORDERED: fentaNYL (PF) 50 MCG/ML 2 ML AMP ONE (07:32)
[2024-01-04] MEDS: BUPIVACAINE (PF) 0.5% 30 ML VIAL SQ ONE (08:04)
--- NOTE | 2024-01-04 10:11 | P.OP ---
Date of Procedure: 01/04/24 Preoperative Diagnosis: Lung Cancer HTN Anxiety Postoperative Diagnosis: Same Procedure(s) Performed: 1. Bronchoscopy 2. Right robotic assisted thorascopic surgery with right middle lobectomy 3. Mediastinal lymph node dissection 4. Intercostal nerve block - 3 levels. Anesthesia: GETA Surgeon: Saman Bedoya Cupola Tapper #1: Rakesh Santizo Estimated Blood Loss (ml): 25 Urine output (ml): 50 Pathology: other (RML, Stations 8, 7, 10, 4, 12, 13) Condition: stable Disposition: PACU Indications for Procedure: This patient is a 63 year-old M who had a lung cancer screening CT by his PCP which revealed an 11mm RML nodule. Biopsy revealed NSCLC. PET/CT and EBUS were negative for metastatic disease or mary disease. Given his good functional status and good PFTs, lobectomy was recommended. Operative Findings: Two arterial branches to right middle lobe. Good margin on middle lobe specimen. No invasion of upper lobe noted. Description of Procedure: The patient underwent left radial arterial line placement in the pre-operative suite. He was brought back to the operating room and placed on the table in the supine position. She was intubated with a 39F left sided OFELIA which was confirmed with bronchoscopy. A diagnostic bronchoscopy was also performed which revealed no lesions or abnormalities in the entire tracheo-bronchial tree. There was minimal to no secretions. The patient was then positioned in the left lateral decubitus position and his right chest was prepped and draped in the usual sterile fashion. The double lumen tube position was once again checked using bronchoscopy. A time-out was performed and antibiotics were given. The right lung was isolated. We made a 1cm incision in the 9th intercostal space anterior axillary line. The 8mm trocar was inserted into the chest bluntly. The robotic camera was inserted and there was no injury to the lung and there was good lung isolation. We placed then placed 12mm trocars 10cm anteriorly and 10cm posteriorly in the 9th intercostal space. A 4th 8mm port was placed posteriorly in the 8th ICS posteriorly. We placed a 15mm assistant professor of spanish port in between ports 1 and 2 10th ICS above the diaphragm. The Da Samantha Xi robot was then docked. We then approached the fissure and performed some dissection along the inter-lobar fissure using the bipolar cautery. The major fissure was complete and the minor fissure was f used. The pulmonary arterial plane was dissected out. Attention was then turned towards the inferior pulmonary ligament which was taken down using the bipolar cautery. This dissection was carried upward with the bipolar cautery posteriorly and anteriorly along the mediastinal pleura. Posteriorly we obtained level 8 and 7 lymph node. At this point, R10 and 4 node was taken above the azygous vein.An teriorly, the middle lobe vein which was coming off the superior lobe branch was circumferentially dissected and encircled with a vessel loop. A robotic white load was used to staple the vein. Next, the middle lobe bronchus was circumferentially dissected and encircled. The robotic green load was fired across the bronchus. Next the middle lobe artery was dissected. Level 12 node was harvested here. This branch was circumferentially dissected and encircled. It was then stapled using a robotic white load. Next the major fissure to the middle lobe was completed using a robotic blue load stapler. At this point, a second small arterial branch was identified going to the middle lobe. This was encircled with a vessel loop and stapled using a robotic white load. Lastly, several firings of the robotic blue loads were used to complete the minor fissure. The lung was placed in a retrieval bag, and the right chest was irrigated with water and a leak test on the bronchus was performed which was negative. The robot was undocked, the specimen was removed from the chest cavity and a 28F chest tube was placed via the most anterior incision. All incisions were closed in layers and the right lung was inflated and two lung ventilation was resumed.
--- NOTE | 2024-01-04 10:12 | P.ANPRN ---
Procedure Note - Anesthesia - Nerve Block Performed Right Erector Spinae Single Time Out Performed: Yes (0711) Date of Procedure: 01/04/24 Procedure Start Time: 07:12 Procedure Stop Time: 07:14 Location of Patient: PreOp Indication: Acute Post-Operative Pain, Requested by Surgeon Specifically requested for management of pain by DrJanine: Saman Bedoya Sedation Type: Sedate with meaningful contact maintained Preparation: Sterile Prep Position: Supine Catheter: None Needle Types: Pajunk Needle Gauge: 21 Ultrasound used to visualize needle placement: Yes Ultrasound used to observe medication spread: Yes Injectate: 0.5% Ropivacaine (see comment for volume) (30cc) Blood Aspirated: No Pain Paresthesia on Injection Noted: No Resistance on Injection: Normal Image Stored and Saved: Yes Events: Uneventful and Well Tolerated
--- NOTE | 2024-01-04 10:12 | P.ANPRN ---
Procedure Note - Anesthesia - Invasive Line Left Arterial Line Time Out Performed: Yes (0711) Date of Procedure: 01/04/24 Time of Procedure: 07:21 Location of Patient: PreOp Preparation: Sterile Prep, Sterile Dressing Arterial Line Location: Radial (left radial) Ultrasound Used: No Purpose - Visualization and Identification of Vasculature: No Needle Guage: 20g Image Stored and Saved: No Narrative: Invasive line placement per sterile protocol utilized.
--- NOTE | 2024-01-04 10:54 | XR ---
EXAMINATION TYPE: XR chest 1V portable DATE OF EXAM: 01/04/2024 COMPARISON: 12/01/2023 HISTORY: Postop TECHNIQUE: Single frontal view of the chest is obtained. FINDINGS: Chest tube is seen with the tiny less than 5% right apical pneumothorax. Right perihilar c onsolidation is noted and there is subcutaneous emphysema along the right lateral chest. Basilar atel ectasis. Heart is mildly enlarged. There is arthropathy of the shoulders and degenerative change of t he spine. Underlying COPD. IMPRESSION: 1. Minimal less than 5% right apical pneumothorax. 2. Right perihilar atelectasis favored over pneumonia.
[2024-01-04] MEDS ORDERED: ONDANSETRON 4 MG/2 ML VIAL IVP PRN (11:40)
[2024-01-04] MEDS ORDERED: IPRATROPIUM-ALBUTEROL 3 ML NEB IH PRN (11:40)
[2024-01-04] MEDS ORDERED: ACETAMINOPHEN TAB 325 MG TAB PO PRN (11:40)
[2024-01-04] MEDS ORDERED: carisoprodoL 350 MG TAB PO PRN (11:40)
[2024-01-04] MEDS: IPRATROPIUM-ALBUTEROL 3 ML NEB IH SCH (12:17)
[2024-01-04] MEDS: KETOROLAC 15 MG/ML 1 ML VIAL IVP SCH (14:16)
[2024-01-04] MEDS: DEXTROSE 5%-0.45% NACL 1,000 ML IV SCH (16:34)
[2024-01-04] MEDS: HEPARIN SODIUM,PORCINE 5,000 UNIT/ML 1 ML VIAL SQ SCH (16:34)
[2024-01-04] MEDS: traMADol 50 MG TAB PO PRN (16:35)
[2024-01-04] MEDS: PANTOPRAZOLE 40 MG TABLET PO PRN (22:02)
[2024-01-04] MEDS: amLODIPine 5 MG TAB PO SCH (22:03)
--- NOTE | 2024-01-04 22:52 | P.CNPUL ---
History of Present Illness Consult date: 01/04/24 Reason for consult: lung mass History of present illness: This is a 63-year-old male patient with an 11 mm right middle lobe pulmonary nodule and an earlier robotic bronchoscopy and biopsy was consistent with non with a pulse ox of 97%. 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 Endobronchial ultrasound and mediastinal lymph node evaluation was essentially negative. Based on that, the patient was brought into the hospital and the patient underwent a robotic assisted thoracoscopic surgery and right middle lobectomy and mediastinal lymph node dissection. The patient also had intercostal nerve block at 3 different levels. Smell blood loss 25 cc. The patient was seen postop. The patient was feeling well. Pain was under adequate control. The chest x-ray showed today less than 5% right apical pneumothorax. No evidence of any air leak on the chest tube. Output from the chest tube is minimal at this point in time and the patient has no specific complaints. He is currently on oxygen at 2 L with a pulse ox of 98%. Remains on DuoNeb nebulized treatments [id number]. Given tramadol for pain control. Maintained on Norvasc for blood pressure control in combination with Cozaar. Review of Systems 14 point review of system was done essentially negative other than the things mentioned above history of present illness All systems: negative Constitutional: Denies chills, Denies fever Eyes: denies blurred vision, denies pain Ears, nose, mouth and throat: Denies headache, Denies sore throat Cardiovascular: Denies chest pain, Denies shortness of breath Respiratory: Denies cough Gastrointestinal: Denies abdominal pain, Denies diarrhea, Denies nausea, Denies vomiting Musculoskeletal: Denies myalgias Integumentary: Denies pruritus, Denies rash Neurological: Denies numbness, Denies weakness Psychiatric: Denies anxiety, Denies depression Endocrine: Denies fatigue, Denies weight change Past Medical History Past Medical History: Cancer (Squamous cell carcinoma of the lung), Eye Disorder, Hyperlipidemia, Hypertension Additional Past Medical History / Comment(s): HX OF CRYPTOCOCCUS MENINGITIS AT AGE 11 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 RECENT POSITIVE HEMOCCULT TEST. Current right lung cancer. Knee problems. History of Any Multi-Drug Resistant Organisms: None Reported Past Surgical History: Hernia Repair, Orthopedic Surgery Additional Past Surgical History / Comment(s): Cyst removed from right chest, left knee tendon repair, colonoscopy, bronchoscopy. Past Anesthesia/Blood Transfusion Reactions: Postoperative Nausea & Vomiting (PONV) Additional Past Anesthesia/Blood Transfusion Reaction / Comment(s): No blood transfusion hx. Past Psychological History: Anxiety Smoking Status: Current every day smoker Past Alcohol Use History: None Reported Additional Past Alcohol Use History / Comment(s): HAS SMOKED 1.5 PPD SINCE AGE 12. Past Drug Use History: Marijuana Additional Drug Use History / Comment(s): SMOKES 1/2-1 JOINT EVERY NIGHT, knows to not have 24 hours prior to procedure. - Past Family History Father Family Medical History: Cancer Additional Family Medical History / Comment(s): Prostate/bone cancer. Medications and Allergies Home Medications Medication Instructions Recorded Confirmed Type ALPRAZolam 1 mg PO DAILY PRN 01/04/17 01/03/24 History carisoprodoL [Soma] 350 mg PO DAILY PRN 01/04/17 01/03/24 History Omeprazole Magnesium [PriLOSEC OTC] 20 mg PO DAILY PRN 06/28/22 01/03/24 History Aspirin [Adult Low Dose Aspirin EC] 81 mg PO DAILY 11/24/23 01/03/24 History Losartan [Cozaar] 50 mg PO QAM 01/03/24 01/03/24 History amLODIPine BESYLATE [Amlodipine 5 mg PO BID 01/03/24 01/03/24 History Besylate] Allergies Allergy/AdvReac Type Severity Reaction Status Date / Time Sulfa (Sulfonamide Allergy Swelling Verified 01/04/24 06:28 Antibiotics) Physical Exam Vitals: Vital Signs Temp Pulse Pulse Pulse Resp BP BP 01/04/24 22:11 78 18 01/04/24 21:41 68 01/04/24 21:24 68 01/04/24 21:00 97.6 F 83 16 188/88 01/04/24 16:12 68 01/04/24 16:00 97.5 F L 78 18 167/79 01/04/24 15:54 72 01/04/24 14:00 78 18 01/04/24 13:15 68 16 163/92 01/04/24 12:45 66 16 156/85 01/04/24 12:30 66 01/04/24 12:21 01/04/24 12:20 60 01/04/24 12:15 67 16 145/71 01/04/24 12:00 66 16 137/71 01/04/24 11:45 60 16 131/93 01/04/24 11:30 97.5 F L 62 18 158/113 01/04/24 11:00 66 16 156/84 01/04/24 10:45 61 18 160/89 01/04/24 10:30 97 F L 66 16 149/75 01/04/24 07:25 76 16 148/92 01/04/24 06:30 97.3 F L 82 17 150/89 Pulse Ox 01/04/24 22:11 01/04/24 21:41 01/04/24 21:24 01/04/24 21:00 97 01/04/24 16:12 01/04/24 16:00 99 01/04/24 15:54 01/04/24 14:00 01/04/24 13:15 98 01/04/24 12:45 97 01/04/24 12:30 01/04/24 12:21 97 01/04/24 12:20 01/04/24 12:15 97 01/04/24 12:00 97 01/04/24 11:45 100 01/04/24 11:30 98 01/04/24 11:00 98 01/04/24 10:45 100 01/04/24 10:30 100 01/04/24 07:25 96 01/04/24 06:30 97 Intake and Output 01/04/24 01/04/24 01/04/24 06:59 14:59 22:59 Intake Total 300 1550 128 Output Total 75 640 Balance 300 1475 -512 Intake: IV 300 1550 10 Invasive Line 2 10 Oral 0 118 Output: Chest Tube Drainage 40 Chest Tube 40 Urine 50 600 Estimated Blood Loss 25 Other: Voiding Method Urinal # Voids 1 Weight 93.1 kg General appearance, the patient is calm and comfortable patient is on 2 L of oxygen by nasal cannula Head exam was generally normal. There was no scleral icterus or corneal arcus. Mucous membranes were moist. Neck was supple and without jugular venous distension, thyromegaly, or carotid bruits. Carotids were easily palpable bilaterally. There was no adenopathy. Lung sounds are equal and symmetrical, the patient has right-sided chest tube in place. No evidence of any air leak. Surgical wound site is dry clean and intact. Cardiac exam revealed the PMI to be normally situated and sized. The rhythm was regular and no extrasystoles were noted during several minutes of auscultation. The first and second heart sounds were normal and physiologic splitting of the second heart sound was noted. There were no murmurs, rubs, clicks, or gallops. Abdominal exam revealed normal bowel sounds. The abdomen was soft, non-tender, and without masses, organomegaly, or appreciable enlargement of the abdominal aorta. Examination of the extremities revealed easily palpable radial, femoral and pedal pulses. There was no cyanosis, clubbing or edema. Examination of the skin revealed no evidence of significant rashes, suspicious appearing nevi or other concerning lesions. Neurologically, the patient is awake and alert and the patient does not have any focal neurological deficit. Cranial nerves are essentially intact. 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 Acute hypoxic respiratory failure, expected outcome of surgery/postthoracotomy and the patient is currently on 2 L of O2 nasal cannula COPD, mild with a preop FEV1 of 76% of predicted History of smoking Hyperlipidemia Diverticulosis Peripheral vascular disease Chronic anxiety Hypertension History of colonic polyps Vitamin D deficiency Acid reflux Plan Provide patient symptoms parameter Monitor the output from the chest tube and monitor the airleak Repeat chest x-ray on a daily basis Pain control Resume home medications Continue DuoNeb nebulized treatments [id number] Will continue to follow make further recommendations based on his progress.
[2024-01-05] MEDS: PANTOPRAZOLE 40 MG TABLET PO SCH (06:21)
--- NOTE | 2024-01-05 07:28 | XR ---
EXAMINATION TYPE: XR chest 2V DATE OF EXAM: 01/05/2024 COMPARISON: 01/04/2024 TECHNIQUE: PA and lateral views submitted. HISTORY: Postop FINDINGS: Chest tube is seen with the tiny less than 5% right apical pneumothorax. Right perihilar consolidatio n is noted and there is subcutaneous emphysema along the right lateral chest. Basilar atelectasis. He art is mildly enlarged. There is arthropathy of the shoulders and degenerative change of the spine. U nderlying COPD. Nodule overlying the left midlung most difficult nipple shadow. IMPRESSION: 1. Stable 5% right pneumothorax.
[2024-01-05] MEDS: LOSARTAN 50 MG TAB PO SCH (08:59)
[2024-01-05] MEDS: ASPIRIN 81 MG PO SCH (09:00)
[2024-01-05] MEDS: hydrALAZINE HCL 20 MG/ML 1 ML VIAL IVP PRN (09:00)
[2024-01-05] MEDS: ALPRAZolam 1 MG TAB PO PRN (09:45)
[2024-01-05 10:27] VITALS: BP 210/91; PULSE 86; RESP 18; TEMP 98.6
[2024-01-05 10:33] LABS: Basophils # (A) 0.1 k/uL (0-0.2); Basophils % (A) 1 %; Eosinophils # (A) 0.2 k/uL (0-0.7); Eosinophils % (A) 1 %; HGB 14.3 gm/dL (13.0-17.5); Lymphocytes # (A) 1.9 k/uL (1.0-4.8); Lymphocytes % (A) 15 %; MCH 33.1 pg (25.0-35.0); MCHC 33.9 g/dL (31.0-37.0); MCV 97.4 fL (80.0-100.0); Monocytes # (A) 0.6 k/uL (0-1.0); Monocytes % (A) 5 %; Neutrophils # (A) 9.7 k/uL (1.3-7.7); Neutrophils % (A) 77 %; Platelet Count 259 k/uL (150-450); RBC 4.31 m/uL (4.30-5.90); RDW 13.6 % (11.5-15.5); WBC 12.5 k/uL (3.8-10.6)
[2024-01-05 10:36] LABS: African American GFR (CKD) >90 (>60 ml/min/1.73 sqM); Anion Gap 7 mmol/L; Blood Urea Nitrogen 14 mg/dL (9-20); Calcium 9.3 mg/dL (8.4-10.2); Carbon Dioxide 24 mmol/L (22-30); Chloride 106 mmol/L (98-107); Glucose 115 mg/dL (74-99); Non-African American GFR(CKD) >90 (>60 ml/min/1.73 sqM); Potassium 3.5 mmol/L (3.5-5.1); Sodium 137 mmol/L (137-145)
--- NOTE | 2024-01-05 10:48 | XR ---
EXAMINATION TYPE: XR chest 2V DATE OF EXAM: 01/05/2024 COMPARISON: 01/05/2024 TECHNIQUE: PA and lateral views submitted. HISTORY: Post chest tube removal FINDINGS: There is approximately 5-10% right-sided pneumothorax post chest tube removal. Subcutaneous emphysema . Probable nipple shadow overlying the left midlung. Underlying COPD. Heart size stable. There remain s prominence of the right hilum. Osseous structures stable. IMPRESSION: 1. Approximate 5-10% right-sided pneumothorax.
--- NOTE | 2024-01-05 11:39 | P.DS ---
Providers Date of admission: 01/04/24 05:52 Expected date of discharge: 01/05/24 Attending physician: Saman Bedoya MD Consults: 01/04/24 11:40 Consult Physician Routine Consulting Provider: Tomasa Retana Consult Reason/Comments: post RMLobectomy Do you want consulting provider notified?: Yes Primary care physician: [facility] Hospital Course: FINAL DIAGNOSIS: Lung Cancer HTN Anxiety Previous tobacco dependence Hyperlipidemia History of meningitis at 11 years old Marijuana use PRINCIPAL PROCEDURE: Bronchoscopy Right robotic assisted thorascopic surgery with right middle lobectomy Mediastinal lymph node dissection Intercostal nerve block - 3 levels. HISTORY OF PRESENT ILLNESS: This is a 63-year-old gentleman who follows outpatient with Dr. Daniels for primary care, Dr. Retana for pulmonology, and Dr. Velasquez for cardiology. He presented to the office of Dr. Bedoya from cardiothoracic surgery for an opinion on a newly diagnosed 11mm NSCLC on the RML. The patient stated that he had a lung cancer screening CT in September by his PCP which revealed a nodule in the RML. He underwent further imaging with PET/CT which revealed mild FDG avidity of 1.8 in the nodule. There was some concern for a hilar node with FDG of 3.5 but the image was fuzzy. He subsequently underwent robotic assisted biopsy which revealed NSCLC. Biopsy was complicated by ptx. No EBUS was performed because no nodes were identified. The patient stated that he has lost about 26lbs in the previous 2.5 months. He denied cough, fevers, chills, hemoptysis or any other previous cardiac conditions. He had a recent stress test which was negative. He was recommended to undergo surgical resection. The usual perioperative course was discussed in detail with the patient and his , all risks and benefits were explained, all questions were answered, and consent was obtained to proceed with surgery. The patient was scheduled for surgery at the earliest possible date. HOSPITAL COURSE: The patient was brought to the hospital on 01/04/24, taken to the preoperative area, prepared in the usual fashion, and subsequently taken to the operating room where Dr. Bedoya performed robotic assisted right middle lobectomy. Upon completion of surgery the patient was extubated and taken to the recovery room for further monitoring. Eventually he was admitted to 3 S. cardiac stepdown unit. There was no airleak in his chest tube the night of surgery and was placed to waterseal. The following morning his chest x-ray was stable, there was no airleak in his chest tube and it was discontinued without incident. Follow-up chest x-ray was stable. 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 His oxygen was titrated down, he was tolerating oral diet, his pain was controlled, and he was ready to be discharged to home on postoperative day #1. He received written and verbal instruction regarding his medications, activity restrictions, signs and symptoms requiring physician notification, and follow-up appointments. Patient Condition at Discharge: Stable Plan - Discharge Summary Discharge Rx Participant: Yes New Discharge Prescriptions: New Acetaminophen Tab [Tylenol] 650 mg PO Q4HR PRN tab PRN Reason: Mild To Moderate Pain (1 - 6) Continue carisoprodoL [Soma] 350 mg PO DAILY PRN PRN Reason: MUSCLE SPASMS ALPRAZolam 1 mg PO DAILY PRN PRN Reason: Anxiety Losartan [Cozaar] 50 mg PO QAM Omeprazole Magnesium [PriLOSEC OTC] 20 mg PO DAILY PRN PRN Reason: Heartburn Aspirin [Adult Low Dose Aspirin EC] 81 mg PO DAILY amLODIPine BESYLATE [Amlodipine Besylate] 5 mg PO BID Discharge Medication List ALPRAZolam 1 mg PO DAILY PRN 01/04/17 [History] carisoprodoL [Soma] 350 mg PO DAILY PRN 01/04/17 [History] Omeprazole Magnesium [PriLOSEC OTC] 20 mg PO DAILY PRN 06/28/22 [History] Aspirin [Adult Low Dose Aspirin EC] 81 mg PO DAILY 11/24/23 [History] Losartan [Cozaar] 50 mg PO QAM 01/03/24 [History] amLODIPine BESYLATE [Amlodipine Besylate] 5 mg PO BID 01/03/24 [History] Acetaminophen Tab [Tylenol] 650 mg PO Q4HR PRN tab 01/05/24 [Rx] Follow up Appointment(s)/Referral(s): Orlin Albrecht DO [Primary Care Provider] - As Needed Saman Bedoya MD [STAFF PHYSICIAN] - 01/15/24 10:00 am Tomasa Retana MD [STAFF PHYSICIAN] - 01/18/24 10:00 am Activity/Diet/Wound Care/Special Instructions: DISCHARGE INSTRUCTIONS: 1. No driving for 2 weeks, or until physician gives their ok. 2. No lifting, pushing, or pulling more than 10 pounds for 2 weeks. The physician will advise of any restriction changes. 3. Continue pain control per as needed orders. Alternate acetaminophen (Tylenol) and ibuprofen (Motrin/Advil) for pain. 4. Continue with incentive spirometry and splinting until otherwise directed by the physician. 5. Leave chest tube dressing for 48 hours. After that, remove all dressings and shower daily. 6. Routine incision care. No powders, lotions, ointments on incisions. 7. Please call surgeon/BASE WAD OPERATOR ADJUSTER for temp greater than 101 F or purulent drainage from incisions. 8. Smoking cessation counseling and program information provided. Quitting smoking is the most important step you can take to improve your health. For additional information and assistance to quit smoking, please call the [place] tobacco quit line (3-806-RKGJ-NOW/ ) or online: [email or web address]-[email or web address]-qu it-tobacco Discharge Disposition: HOME SELF-CARE
--- NOTE | 2024-01-05 11:55 | P.PN ---
Subjective Progress Note Date: 01/05/24 This is a 63-year-old male patient with an 11 mm right middle lobe pulmonary nodule and an earlier robotic bronchoscopy and biopsy was consistent with non with a pulse ox of 97%. 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 Endobronchial ultrasound and mediastinal lymph node evaluation was essentially negative. Based on that, the patient was brought into the hospital and the patient underwent a robotic assisted thoracoscopic surgery and right middle lobectomy and mediastinal lymph node dissection. The patient also had intercostal nerve block at 3 different levels. Smell blood loss 25 cc. The patient was seen postop. The patient was feeling well. Pain was under adequate control. The chest x-ray showed today less than 5% right apical pneumothorax. No evidence of any air leak on the chest tube. Output from the chest tube is minimal at this point in time and the patient has no specific complaints. He is currently on oxygen at 2 L with a pulse ox of 98%. Remains on DuoNeb nebulized treatments [id number]. Given tramadol for pain control. Maintained on Norvasc for blood pressure control in combination with Cozaar. 01/05/2024, the patient is doing extremely well. No significant complaints. No respiratory distress and the patient has been on room air oxygen. A follow-up chest x-ray from this morning showed examination of the right lung. There is probably a 5 Percent pneumothorax in the right apex. No other significant abnormalities. The right-sided chest tube was removed. The patient remains hemodynamically stable. Will likely go home today.The white cell count is at 12.5, 14.3 and a platelet count of 259. BUN is 14 with a creatinine of 0.8. Objective - Vital Signs Vital signs: Vital Signs Temp 98.6 F 01/05/24 08:00 Pulse 86 01/05/24 08:00 Resp 18 01/05/24 08:00 BP 210/91 01/05/24 08:00 Pulse Ox 96 01/05/24 08:00 FiO2 Intake & Output 01/04/24 01/05/24 01/05/24 18:59 06:59 18:59 Intake Total 1668 10 240 Output Total 355 1233 Balance 1313 -1223 240 Intake: IV 1550 10 Invasive Line 2 10 Oral 118 240 Output: Chest Tube Drainage 30 58 Chest Tube 30 58 Urine 300 1175 Estimated Blood Loss 25 Other: Voiding Method Urinal Urinal # Voids 2 1 - Exam General appearance, the patient is calm and comfortable patient is on Room air oxygen Head exam was generally normal. There was no scleral icterus or corneal arcus. M ucous membranes were moist. Neck was supple and without jugular venous distension, thyromegaly, or carotid bruits. Carotids were easily palpable bilaterally. There was no adenopathy. Lung sounds are equal and symmetrical, the patient has right-sided chest tube in place. No evidence of any air leak. Surgical wound site is dry clean and intact. Cardiac exam revealed the PMI to be normally situated and sized. The rhythm was regular and no extrasystoles were noted during several minutes of auscultation. The first and second heart sounds were normal and physiologic splitting of the second heart sound was noted. There were no murmurs, rubs, clicks, or gallops. Abdominal exam revealed normal bowel sounds. The abdomen was soft, non-tender, and without masses, organomegaly, or appreciable enlargement of the abdominal aorta. Examination of the extremities revealed easily palpable radial, femoral and pedal pulses. There was no cyanosis, clubbing or edema. Examination of the skin revealed no evidence of significant rashes, suspicious appearing nevi or other concerning lesions. Neurologically, the patient is awake and alert and the patient does not have any focal neurological deficit. Cranial nerves are essentially intact. 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 Acute hypoxic respiratory failure, expected outcome of surgery/postthoracotomy and the patient is currently on RA COPD, mild with a preop FEV1 of 76% of predicted History of smoking Hyperlipidemia Diverticulosis Peripheral vascular disease Chronic anxiety Hypertension History of colonic polyps Vitamin D deficiency Acid reflux Plan Patient is currently on room air oxygen. Repeat chest x-ray stable there is less than 5% pneumothorax on the right and right-sided chest tube has been removed. No evidence of any air leak. Pain control Resume home medications Continue DuoNeb nebulized treatments [id number] Will continue discharge the patient home today to be followed up in the office.
--- NOTE | 2024-01-09 10:16 | P.GSHP ---
History of Present Illness H&P Date: 12/20/23 Chief Complaint: Lung Cancer Mr Muniz is a 63 year-old M with a hx of htn, gerd, anxiety and diverticulitis who is here regarding an opinion on a newly diagnosed 11mm NSCLC on the RML. The patient states that he had a lung cancer screening CT in September by his PCP Dr. Payne which revealed a nodule in the RML. He underwent further imaging with PET/CT which revealed mild FDG avidity of 1.8 in the nodule. There was some concern for a hilar node with FDG of 3.5 but the image is fuzzy. He subsequently underwent robotic assisted biopsy which revealed NSCLC. Biopsy was complicated by ptx. No EBUS was performed because no nodes were identified. The patient states that he has lost about 26lbs in the last 2.5 months. He denies cough, fevers, chills, hemoptysis or any other previous cardiac conditions. He had a recent stress test which was negative. - Constitutional Constitutional: Reports as per HPI - Breasts Breasts: absent: as per HPI - Cardiovascular Cardiovascular: Reports as per HPI - Respiratory Respiratory: Reports as per HPI - Gastrointestinal Gastrointestinal: Reports as per HPI - Genitourinary (Female) Genitourinary: Reports as per HPI Past Medical History Past Medical History: Cancer, Eye Disorder, Hyperlipidemia, Hypertension Additional Past Medical History / Comment(s): HX OF CRYPTOCOCCUS MENINGITIS AT AGE 11 RESULTING IN BLINDNESS TO LT EYE. RECENT POSITIVE HEMOCCULT TEST, right lung cancer History of Any Multi-Drug Resistant Organisms: None Reported Past Surgical History: Hernia Repair, Orthopedic Surgery Additional Past Surgical History / Comment(s): right cyst removed from chest, left knee tendon repair, colonoscopy Past Anesthesia/Blood Transfusion Reactions: Postoperative Nausea & Vomiting (PONV) Additional Past Anesthesia/Blood Transfusion Reaction / Comment(s): no blood transfusion Smoking Status: Current every day smoker - Past Family History Father Family Medical History: Cancer Additional Family Medical History / Comment(s): prostate/bone Medications and Allergies Home Medications Medication Instructions Recorded Confirmed Type ALPRAZolam 1 mg PO DAILY PRN 01/04/17 01/03/24 History carisoprodoL [Soma] 350 mg PO DAILY PRN 01/04/17 01/03/24 History Omeprazole Magnesium [PriLOSEC OTC] 20 mg PO DAILY PRN 06/28/22 01/03/24 History Aspirin [Adult Low Dose Aspirin EC] 81 mg PO DAILY 11/24/23 01/03/24 History Losartan [Cozaar] 50 mg PO QAM 01/03/24 01/03/24 History amLODIPine BESYLATE [Amlodipine 5 mg PO BID 01/03/24 01/03/24 History Besylate] Acetaminophen Tab [Tylenol] 650 mg PO Q4HR PRN tab 01/05/24 Rx Allergies Allergy/AdvReac Type Severity Reaction Status Date / Time Sulfa (Sulfonamide Allergy Swelling Verified 01/04/24 06:28 Antibiotics) Surgical - Exam - General well developed, well nourished, no distress - Eyes PERRL absent: ptosis - ENT normal pinna - Neck no masses, trachea midline lymphadenopathy: absent - Respiratory normal expansion, clear to auscultation - Cardiovascular Rhythm: regular Heart Sounds: normal: S1, S2 - Abdomen Abdomen: soft, non tender Results FEV 1 - 2.85L (76%) - Labs 01/05/24 09:42 01/05/24 09:42 - Imaging CT scan - chest: report reviewed, image reviewed Assessment and Plan Assessment: This is a 63 year-old M with a newly diagnosed T1NxM0 (Stage 1A) SCC of the RML. Plan: We had a long discussion regarding his diagnosis and options today. I recommended surgical resection. The patient and his were in agreement with this plan. We discussed robotic assisted wide wedge resection of the nodule with frozen section analysis of the mediastinal lymph nodes. If nodes happen to be positive we will proceed with right middle lobectomy. Prior to surgery we will obtain full PFT's as we do not have a DLCO. In the meantime he is going to try to quit smoking all together. He is tentatively scheduled for surgery January 03. Time with Patient: Greater than 30
== END 2024-01-05 12:27 | disposition home or self-care (01) | DRG 163 ==
LOC: 2ORMAIN 05:52 → 3SCARD 10:55
PROVIDERS: ADMIT Thoracic Surgery (Cardiothoracic Vascular Surgery); ATTEND Thoracic Surgery (Cardiothoracic Vascular Surgery)
PROC: 07T74ZZ Resection of Thorax Lymphatic, Percutaneous Endoscopic Approach (ICD-10-PCS; principal; 2024-01-04 07:30)
PROC: 8E0W4CZ Robotic Assisted Procedure of Trunk Region, Percutaneous Endoscopic Approach (ICD-10-PCS; principal; 2024-01-04 07:30)
PROC: 0BJ08ZZ Inspection of Tracheobronchial Tree, Via Natural or Artificial Opening Endoscopic (ICD-10-PCS; principal; 2024-01-04 07:30)
PROC: 0BTD4ZZ Resection of Right Middle Lung Lobe, Percutaneous Endoscopic Approach (ICD-10-PCS; principal; 2024-01-04 07:30)
DX: C34.2 Malignant neoplasm of middle lobe, bronchus or lung (principal); J96.01 Acute respiratory failure with hypoxia; E78.5 Hyperlipidemia, unspecified; I10 Essential (primary) hypertension; J44.9 Chronic obstructive pulmonary disease, unspecified; I73.9 Peripheral vascular disease, unspecified; K57.90 Diverticulosis of intestine, part unspecified, without perforation or abscess without bleeding; E55.9 Vitamin D deficiency, unspecified; K21.9 Gastro-esophageal reflux disease without esophagitis; F41.9 Anxiety disorder, unspecified; H54.62 Unqualified visual loss, left eye, normal vision right eye; Z71.6 Tobacco abuse counseling; F12.90 Cannabis use, unspecified, uncomplicated; F17.210 Nicotine dependence, cigarettes, uncomplicated; Z79.82 Long term (current) use of aspirin; Z79.899 Other long term (current) drug therapy; Z88.2 Allergy status to sulfonamides
CPT/HCPCS: 64999; 71045; 71046; 80048; 85025; 86850; 86900; 86901; 86920; 88305; 88309; 88313; 88341; 88342; 94640; 94760

== ENCOUNTER 2024-02-27 12:56 | Emergency (ER) | payer OTHER ==
[2024-02-27] MEDS ORDERED: ONDANSETRON 4 MG/2 ML VIAL ONE (14:31)
[2024-02-27] MEDS ORDERED: AMOXIC-POT CLAV 875-125MG 1 EACH TAB ONE (17:44)
[2024-02-27] MEDS ORDERED: ONDANSETRON 4 MG ODT STARTER PACK 2 TAB BTL ONE (17:44)
[2024-02-27] MEDS ORDERED: SODIUM CHLORIDE 0.9% 1,000 ML BAG ONE (23:59)
--- NOTE | 2024-03-26 11:49 | CT ---
"BRYAN QUEZADA : 1960 EXAMINATION: CT Abd/Pelvis w/ Contrast TECHNIQUE: Contiguous axial scanning of the abdomen and pelvis following administration of 100 mL Iso julia-300 IV contrast. Delayed images through the kidneys and coronal and sagittal reconstructions were performed. Automated exposure control for dose reduction was used. DATE: 02/27/2024 4:09 PM COMPARISON: No priors available during downtime HISTORY: 63-year-old male with lower abdominal pain FINDINGS: Heart normal size without pericardial effusion. Three-vessel coronary artery calcifications are prese nt. There appears to be some subpleural thickening or effusion along the anterior right base. Chronicity is unclear. Correlate with any available outside priors. Possible trace right effusion dependently as well. Liver mildly enlarged at 18.1 cm. Portal venous system is patent. No biliary ductal dilatation. No fo yassine liver lesion seen. Gallbladder, adrenal glands, spleen, and pancreas within normal limits. Scattered bilateral small renal cortical cysts measuring up to 1.5 cm. Symmetric uptake and excretion of contrast from both kidneys. Mild atherosclerotic calcification and plaque within the infrarenal abdominal aorta and common iliac arteries. Some prominent fluid-filled small bowel loops in the left side of the abdomen. No dilated small bowel , free fluid, or free air. Normal appendix. Mild stool in the right side of the colon. There is left-sided colonic diverticulosi s greatest in the sigmoid colon. The mid sigmoid colon shows moderate circumferential wall thickening and mild to moderate surrounding inflammatory fat stranding. Mild circumferential bladder wall thickening especially in the dome of the bladder with air is adjace nt colonic inflammation. Prostate gland mildly enlarged at 4.9 cm wide. No abnormal fluid collection the pelvis or pelvic lymphadenopathy. Mild degenerative change at the hips. Moderate degenerative disc disease L4-L5. Facet arthropathy lo wer lumbar spine. [facility] in the lower thoracic spine. IMPRESSION: 1. Findings suggest acute diverticulitis along the mid sigmoid colon with mild to moderate inflammati on. Given the degree of wall thickening, recommend direct visualization after successful treatment to exclude underlying neoplasm. No abscess or free air. 2. Mild circumferential bladder wall thickening adjacent to the colonic inflammation. Correlate to ex clude cystitis. Findings may be on the basis of reactive inflammation. 3. Abnormal opacity, possibly pleural fluid along the anterior right base. Query any previous surgery here or any known diagnosis that would account for this finding. No priors available during downtime . Follow-up as clinically indicated."
== END 2024-02-27 17:55 | disposition home or self-care (01) ==
LOC: EC 12:56
CPT/HCPCS: 74177; 80053; 82150; 83605; 83735; 85025; 96374; 99284

== ENCOUNTER → 2024-04-16 | Outpatient (CLI) | payer OTHER ==
--- NOTE | 2024-04-17 00:41 | US ---
EXAMINATION TYPE: US abdomen limited DATE OF EXAM: 04/16/2024 COMPARISON: NONE CLINICAL INDICATION: Male, 63 years old with history of R19.00 INTRA-ABD AND PELVIC SWELLING, MASS AN D LUM; Right side lump had surgery in December TECHNIQUE: FINDINGS: Scanned right side abdomen no abnormalities seen. IMPRESSION: 1. Limited right side ultrasound negative for masses post surgery. [facility], , 04/17/2024 12:39 AM
== END | disposition home or self-care (01) ==
LOC: RADUSWWP 09:20
PROVIDERS: ATTEND Family Medicine
DX: R19.00 Intra-abdominal and pelvic swelling, mass and lump, unspecified site (principal)
CPT/HCPCS: 76705

== ENCOUNTER 2024-05-08 16:36 | Emergency (ER) | payer OTHER ==
--- NOTE | 2024-05-08 16:52 | ED ---
Abdominal Pain HPI - General Source: patient, family, RN notes reviewed Mode of arrival: ambulatory Limitations: no limitations <Joanne Brady - Last Filed: 05/08/24 16:51> <Shirley Fenton - Last Filed: 05/09/24 00:59> - General Stated Complaint: post op comp (abd) Time Seen by Provider: 05/08/24 16:51 - History of Present Illness Initial Comments: Quick note: 63-year-old male presenting to the ER with a chief complaint of abdominal pain and vomiting. Patient recently underwent lobectomy of right lung on January 03. States for the past 4 days he has not been able to keep anything down and vomiting. He also endorses hot flashes. Patient was seen at [facility] yesterday and had CAT scan performed. Patient was discharged with a colon p ebenezer, per mother. (Joanne Brady) 63-year-old male presents emergency department with his mother for chief complaint of abdominal pain, nausea and vomiting over the past 3 to 4 days. States that he has been having a difficult time keeping down foods and liquids. Patient states that he went to [facility] yesterday where a CT image was ordered of his abdomen which revealed inflammation of the colon however he was discharged home. Patient had a right lobectomy in December and has been experiencing complications since including weight loss and abdominal pain. Patient follows with Dr. Goldman and Dr. Retana. (Shirley Fenton) - Related Data Home Medications Medication Instructions Recorded Confirmed ALPRAZolam 1 mg PO DAILY PRN 01/04/17 01/03/24 carisoprodoL [Soma] 350 mg PO DAILY PRN 01/04/17 01/03/24 Omeprazole Magnesium [PriLOSEC OTC] 20 mg PO DAILY PRN 06/28/22 01/03/24 Aspirin [Adult Low Dose Aspirin EC] 81 mg PO DAILY 11/24/23 01/03/24 Losartan [Cozaar] 50 mg PO QAM 01/03/24 01/03/24 amLODIPine BESYLATE [Amlodipine 5 mg PO BID 01/03/24 01/03/24 Besylate] Previous Rx's Medication Instructions Recorded Acetaminophen Tab [Tylenol] 650 mg PO Q4HR PRN tab 01/05/24 Ondansetron Odt [Zofran Odt] 4 mg PO Q8HR PRN #10 tab 05/08/24 Allergies Allergy/AdvReac Type Severity Reaction Status Date / Time Sulfa (Sulfonamide Allergy Swelling Verified 01/04/24 06:28 Antibiotics) Review of Systems ROS Other: All systems not noted in ROS Statement are negative. <Joanne Brady - Last Filed: 05/08/24 16:51> ROS Other: All systems not noted in ROS Statement are negative. <Shirley Fenton - Last Filed: 05/09/24 00:59> ROS Statement: Those systems with pertinent positive or pertinent negative responses have been documented in the HPI. 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 RECENT POSITIVE HEMOCCULT TEST, right lung cancer History of Any Multi-Drug Resistant Organisms: None Reported Past Surgical History: Hernia Repair, Orthopedic Surgery Additional Past Surgical History / Comment(s): right cyst removed from chest, left knee tendon repair, colonoscopy Past Anesthesia/Blood Transfusion Reactions: Postoperative Nausea & Vomiting (PONV) Additional Past Anesthesia/Blood Transfusion Reaction / Comment(s): no blood transfusion Additional Past Alcohol Use History / Comment(s): HAS SMOKED 1.5 PPD SINCE AGE 12 Additional Drug Use History / Comment(s): SMOKES 1/2 -1 JOINT EVERY NIGHT knows to not have 24 hours prior to procedurepro - Past Family History Father Family Medical History: Cancer Additional Family Medical History / Comment(s): prostate/bone <Joanne Brady - Last Filed: 05/08/24 16:51> General Exam <Joanne Brady - Last Filed: 05/08/24 16:51> General appearance: alert, in no apparent distress Eye exam: Present: normal appearance, PERRL, EOMI. Absent: scleral icterus, conjunctival injection, periorbital swelling ENT exam: Present: normal exam, mucous membranes moist Neck exam: Present: normal inspection. Absent: tenderness, meningismus, lymphadenopathy Respiratory exam: Present: decreased breath sounds (right lung field). Absent: normal lung sounds bilaterally, respiratory distress, wheezes, rales, rhonchi, stridor Cardiovascular Exam: Present: regular rate, normal rhythm, normal heart sounds. Absent: systolic murmur, diastolic murmur, rubs, gallop, clicks GI/Abdominal exam: Present: soft, tenderness (right sided abdomen, no rebound tenderness), normal bowel sounds. Absent: distended, guarding, rebound, rigid Extremities exam: Present: normal inspection, full ROM, normal capillary refill. Absent: tenderness, pedal edema, joint swelling, calf tenderness Back exam: Present: normal inspection Skin exam: Present: warm, dry, intact, normal color. Absent: rash <Shirley Fenton - Last Filed: 05/09/24 00:59> - General Exam Comments Initial Comments: Visual Physical Exam Vital signs reviewed General: Well-appearing, nontoxic, no acute distress. Head: Normocephalic, atraumatic Eyes: PERRLA, EOMI ENT: Airway patent Chest: Nonlabored breathing Skin: No visual rash, normal skin tone Neuro: Alert and oriented 3 Musculoskeletal: No gross abnormalities (Joanne Brady) Course Vital Signs 05/08/24 05/08/24 16:50 21:36 Temperature 97.5 F L 98.4 F Pulse Rate 90 68 Respiratory 22 20 Rate Blood Pressure 174/83 168/101 O2 Sat by Pulse 95 98 Oximetry Medical Decision Making <Joanne Brady - Last Filed: 05/08/24 16:51> - Lab Data Result diagrams: 05/08/24 18:35 05/08/24 18:35 <Shirley Fenton - Last Filed: 05/09/24 00:59> - Medical Decision Making I performed the quick note portion of this chart. Electronically signed by Joanne Brady PA-C (Joanne Brady) Was pt. sent in by a medical professional or institution ([facility], STENCILING MACHINE TENDER, urgent care, hospital, or skilled nursing...) When possible be specific @ -No Did you speak to anyone other than the patient for history (EMS, parent, family, police, friend...)? What history was obtained from this source @ -No Did you review nursing and triage notes (agree or disagree)? Why? @ -I reviewed and agree with nursing and triage notes Were old charts reviewed (outside hosp., previous admission, EMS record, old EKG, old radiological studies, urgent care reports/EKG's, skilled nursing records)? Report findings @ -No old charts were reviewed Differential Diagnosis (chest pain, altered mental status, abdominal pain women, abdominal pain men, vaginal bleeding, weakness, fever, dyspnea, syncope, heada marissa, dizziness, GI bleed, back pain, seizure, CVA, palpatations, mental health, musculoskeletal)? @ -Differential Abdominal Pain Men: Appendicitis, cholecystitis, diverticulosis, ischemic bowel, pancreatitis, hepatitis, UTI, gastroenteritis, AAA, incarcerated hernia, bowel obstruction, constipation, inflammatory bowel, hepatitis, peptic ulcer disease, splenic infarction, perforated viscus, testicular torsion, this is not meant to be an all-inclusive list EKG interpreted by me (3pts min.). @ -None X-rays interpreted by me (1pt min.). @ -None done CT interpreted by me (1pt min.). @ -None done U/S interpreted by me (1pt. min.). @ -None done What testing was considered but not performed or refused? (CT, X-rays, U/S, labs)? Why? @ -CT imaging of the abdomen pelvis was considered but deferred at this time as patient had a CT image completed yesterday at outside facility where he was discharged home in stable condition with no acute intra-abdominal process identified. Additionally shared decision make with patient at bedside he is agree with deferring CT imaging at this time. States that he feels comfortable following up outpatient with his specialist as scheduled. What meds were considered but not given or refused? Why? @ -None Did you discuss the management of the patient with other professionals (professionals i.e. , PA, STENCILING MACHINE TENDER, lab, RT, psych nurse, social sciences department chair, net wpf developer, teacher, parole or probation officer, piano case maker)? Give summary @ -No Was smoking cessation discussed for >3mins.? @ -No Was critical care preformed (if so, how long)? @ -No Were there social determinants of health that impacted care today? How? (Homelessness, low income, unemployed, alcoholism, drug addiction, tra nsportation, low edu. Level, literacy, decrease access to med. care, alf, rehab)? @ -No Was there de-escalation of care discussed even if they declined (Discuss DNR or withdrawal of care, Hospice)? DNR status @ -No What co-morbidities impacted this encounter? (DM, HTN, Smoking, COPD, CAD, Cancer, CVA, ARF, Chemo, Hep., AIDS, mental health diagnosis, sleep apnea, morbid obesity)? @ -None Was patient admitted / discharged? Hospital course, mention meds given and route, prescriptions, significant lab abnormalities, going to OR and other pertinent info. @ -Discharge. 63-year-old male with abdominal pain. Patient was visually evaluated as a quick note in the emergency department waiting room where laboratory studies were ordered. On my evaluation the patient is resting comfortably no signs acute distress. Vitals are stable. He is noted to have right-sided abdominal pain to palpation with no signs of rebound tenderness or rigidity. Equal bowel sounds auscultated throughout all quadrants. Was provided with pain medication and antiemetics pending laboratory results. He is agree with this plan. Additionally, patient is provided with IV fluids prophylactically. Labs reveal mild leukocytosis 12.2 and left shift neutrophils 9.3 which is likely reactive secondary to episodes of emesis. Patient's potassium is mildly low at 3.2, mildly acidotic with a CO2 of 32, amylase and lipase within normal limits, lactate nonelevated at 1.3. Patient is provided with results of today's workup and he is provided with a outpatient prescription for Zofran and instructed to continue to follow-up outpatient as scheduled with his specialist. Discussed with Dr. Johnson Undiagnosed new problem with uncertain prognosis? @ -No Drug Therapy requiring intensive monitoring for toxicity (Heparin, Nitro, Insulin, Cardizem)? @ -No Were any procedures done? @ -No Diagnosis/symptom? @ -abdominal pain Acute, or Chronic, or Acute on Chronic? @ -Acute Uncomplicated (without systemic symptoms) or Complicated (systemic symptoms)? @ -Uncomplicated Side effects of treatment? @ -No Exacerbation, Progression, or Severe Exacerbation? @ -No Poses a threat to life or bodily function? How? (Chest pain, [place], [place], pneumonia, PE, COPD, DKA, ARF, appy, cholecystitis, CVA, Diverticulitis, Homicidal, Suicidal, threat to staff... and all critical care pts) @ -No (Shirley Fenton) - Lab Data Lab Results 05/08/24 05/08/24 05/08/24 Range/Units 18:35 18:35 18:35 WBC 12.2 H (3.8-10.6) k/uL RBC 5.20 (4.30-5.90) m/uL Hgb 16.9 (13.0-17.5) gm/dL Hct 49.2 (39.0-53.0) % MCV 94.6 (80.0-100.0) fL MCH 32.5 (25.0-35.0) pg MCHC 34.3 (31.0-37.0) g/dL RDW 12.8 (11.5-15.5) % Plt Count 343 (150-450) k/uL MPV 6.9 Neutrophils % 76 % Lymphocytes % 16 % Monocytes % 5 % Eosinophils % 1 % Basophils % 0 % Neutrophils # 9.3 H (1.3-7.7) k/uL Lymphocytes # 2.0 (1.0-4.8) k/uL Monocytes # 0.7 (0-1.0) k/uL Eosinophils # 0.1 (0-0.7) k/uL Basophils # 0.0 (0-0.2) k/uL Sodium 138 (137-145) mmol/L Potassium 3.2 L (3.5-5.1) mmol/L Chloride 95 L (98-107) mmol/L Carbon Dioxide 32 H (22-30) mmol/L Anion Gap 11 mmol/L BUN 21 H (9-20) mg/dL Creatinine 0.90 (0.66-1.25) mg/dL Est GFR (CKD-EPI)AfAm >90 (>60 ml/min/1.73 sqM) Est GFR (CKD-EPI)NonAf 90 (>60 ml/min/1.73 sqM) Glucose 111 H (74-99) mg/dL Plasma Lactic Acid Juan 1.3 (0.7-2.0) mmol/L Calcium 10.2 (8.4-10.2) mg/dL Total Bilirubin 0.8 (0.2-1.3) mg/dL AST 25 (17-59) U/L ALT 18 (4-49) U/L Alkaline Phosphatase 77 (38-126) U/L Total Protein 7.6 (6.3-8.2) g/dL Albumin 4.7 (3.5-5.0) g/dL Amylase 43 (30-110) U/L Lipase 27 (23-300) U/L Disposition <Joanne Brady - Last Filed: 05/08/24 16:51> Is patient prescribed a controlled substance at d/c from ED?: No Time of Disposition: 21:01 <Shirley Fenton - Last Filed: 05/09/24 00:59> Clinical Impression: Nausea and vomiting, Abdominal pain Disposition: HOME SELF-CARE Condition: Stable Instructions (If sedation given, give patient instructions): Abdominal Pain (ED) Additional Instructions: Please return to the emergency room for any new or worsening symptoms.take zofran as needed for nausea. follow up as scheduled with specialist outpatient for further evaluation. Prescriptions: Ondansetron Odt [Zofran Odt] 4 mg PO Q8HR PRN #10 tab PRN Reason: Nausea Referrals: Orlin Albrecht DO [Primary Care Provider] - 1-2 days
[2024-05-08 18:43] LABS: Basophils % (A) 0 %; Eosinophils # (A) 0.1 k/uL (0-0.7); Eosinophils % (A) 1 %; HCT 49.2 % (39.0-53.0); HGB 16.9 gm/dL (13.0-17.5); Lymphocytes % (A) 16 %; MCH 32.5 pg (25.0-35.0); MCHC 34.3 g/dL (31.0-37.0); MCV 94.6 fL (80.0-100.0); Mean Platelet Volume 6.9; Monocytes # (A) 0.7 k/uL (0-1.0); Monocytes % (A) 5 %; Neutrophils # (A) 9.3 k/uL (1.3-7.7); Neutrophils % (A) 76 %; Platelet Count 343 k/uL (150-450); RDW 12.8 % (11.5-15.5); WBC 12.2 k/uL (3.8-10.6)
[2024-05-08 19:00] LABS: ALT 18 U/L (4-49); AST 25 U/L (17-59); African American GFR (CKD) >90 (>60 ml/min/1.73 sqM); Albumin 4.7 g/dL (3.5-5.0); Alkaline Phosphatase 77 U/L (38-126); Amylase 43 U/L (30-110); Anion Gap 11 mmol/L; Blood Urea Nitrogen 21 mg/dL (9-20); Calcium 10.2 mg/dL (8.4-10.2); Carbon Dioxide 32 mmol/L (22-30); Chloride 95 mmol/L (98-107); Glucose 111 mg/dL (74-99); Lipase 27 U/L (23-300); Non-African American GFR(CKD) 90 (>60 ml/min/1.73 sqM); Potassium 3.2 mmol/L (3.5-5.1); Sodium 138 mmol/L (137-145); Total Bilirubin 0.8 mg/dL (0.2-1.3); Total Protein 7.6 g/dL (6.3-8.2)
[2024-05-08] MEDS: ONDANSETRON 4 MG/2 ML VIAL IVP STA (19:48)
[2024-05-08] MEDS: SODIUM CHLORIDE 0.9% 1,500 ML IV STA (19:49)
[2024-05-08] MEDS: ONDANSETRON 4 MG ODT STARTER PACK 2 TAB BTL PO STA (21:33)
[2024-05-08 21:37] VITALS: BP 168/101; PULSE 68; RESP 20; TEMP 98.4
== END 2024-05-08 21:46 | disposition home or self-care (01) ==
LOC: EC 16:36
CPT/HCPCS: 36415; 80053; 82150; 83605; 83690; 85025; 96361; 96374; 99284

== ENCOUNTER 2024-05-17 04:07 | Inpatient (IN) | payer OTHER ==
[2024-05-17] MEDS: SODIUM CHLORIDE 0.9% 1,000 ML IV STA (05:34)
[2024-05-17] MEDS: ONDANSETRON 4 MG/2 ML VIAL IVP STA (05:36)
[2024-05-17 05:55] LABS: Basophils % (A) 0 %; Eosinophils % (A) 0 %; HCT 49.2 % (39.0-53.0); HGB 16.4 gm/dL (13.0-17.5); Lymphocytes # (A) 2.2 k/uL (1.0-4.8); Lymphocytes % (A) 14 %; MCH 31.3 pg (25.0-35.0); MCHC 33.2 g/dL (31.0-37.0); MCV 94.2 fL (80.0-100.0); Mean Platelet Volume 7.8; Monocytes # (A) 0.8 k/uL (0-1.0); Monocytes % (A) 5 %; Neutrophils # (A) 12.8 k/uL (1.3-7.7); Neutrophils % (A) 79 %; Platelet Count 364 k/uL (150-450); RBC 5.23 m/uL (4.30-5.90); RDW 12.8 % (11.5-15.5); WBC 16.2 k/uL (3.8-10.6)
[2024-05-17 06:06] LABS: ALT 14 U/L (4-49); AST 27 U/L (17-59); African American GFR (CKD) 87 (>60 ml/min/1.73 sqM); Albumin 4.7 g/dL (3.5-5.0); Alkaline Phosphatase 59 U/L (38-126); Amylase 45 U/L (30-110); Anion Gap 14 mmol/L; Blood Urea Nitrogen 27 mg/dL (9-20); Calcium 10.2 mg/dL (8.4-10.2); Carbon Dioxide 29 mmol/L (22-30); Chloride 93 mmol/L (98-107); Glucose 113 mg/dL (74-99); Lipase 38 U/L (23-300); Non-African American GFR(CKD) 75 (>60 ml/min/1.73 sqM); Sodium 136 mmol/L (137-145); Total Bilirubin 0.8 mg/dL (0.2-1.3); Total Protein 7.5 g/dL (6.3-8.2)
[2024-05-17 06:18] LABS: Potassium 3.9 mmol/L (3.5-5.1)
[2024-05-17] MEDS: METOCLOPRAMIDE 5 MG/ML 2 ML VIAL IVP STA (06:32)
[2024-05-17] MEDS: diphenhydrAMINE 50 MG/ML 1 ML VIAL IVP STA (06:41)
[2024-05-17 07:52] LABS: Magnesium 1.2 mg/dL (1.6-2.3); Phosphorus 3.3 mg/dL (2.5-4.5)
--- NOTE | 2024-05-17 08:01 | ED ---
General Adult HPI <Saúl Cordero - Last Filed: 05/17/24 08:54> - General Source: patient Mode of arrival: ambulatory <Fern - Last Filed: 05/17/24 17:53> - General Chief complaint: Nausea/Vomiting/Diarrhea Stated complaint: Vomiting Time Seen by Provider: 05/17/24 05:22 - History of Present Illness Initial comments: Patient is a 63-year-old male with a past medical history of lung cancer status post lobectomy presenting today for 2 weeks of nausea and vomiting. Patient states he has not felt well since his lobectomy in December however last 2 weeks has had persistent nausea and vomiting on a daily basis. He states he was seen here and ultimately discharged about 2 weeks ago and prior to that was seen at [facility]. He states imaging was not done at this time. When asked how any times he vomits per day he states "about 100". Emesis typically nonbloody however he states last night he ate an orange popsicle and then vomited and felt like the emesis was bright red. Denies any black or bloody stools. States that his PCP, Dr. Albrecht placed him antibiotics to treat him for diverticulitis. He was also placed on a medication for nausea but is unsure of the name. Denies abdominal pain but states there is some epigastric pressure when he tries to eat. Denies chest pain or shortness of breath. States that he has intermittent subjective fevers and chills. States the right side of his abdomen feels numb since lobectomy because he was told that a nerve was injured during that procedure. States has last 50 lbs in the last 4 months. Endorses associated weakness and lightheadedness. (Fern Felipe) - Related Data Home Medications Medication Instructions Recorded Confirmed ALPRAZolam 1 mg PO TID PRN 01/04/17 05/17/24 carisoprodoL [Soma] 350 mg PO TID PRN 01/04/17 05/17/24 Aspirin EC [Ecotrin Low Dose] 81 mg PO DAILY 05/17/24 05/17/24 Ezetimibe [Zetia] 10 mg PO DAILY 05/17/24 05/17/24 amLODIPine [Norvasc] 5 mg PO BID 05/17/24 05/17/24 carvediloL [Coreg] 6.25 mg PO BID 05/17/24 05/17/24 hydroCHLOROthiazide 25 mg PO DAILY 05/17/24 05/17/24 ondansetron HCL [Zofran] 8 mg PO Q8HR PRN 05/17/24 05/17/24 Previous Rx's Medication Instructions Recorded Ondansetron Odt [Zofran Odt] 4 mg PO Q8HR PRN #10 tab 05/08/24 Allergies Allergy/AdvReac Type Severity Reaction Status Date / Time Sulfa (Sulfonamide Allergy Swelling Verified 05/17/24 09:55 Antibiotics) Review of Systems ROS Other: All systems not noted in ROS Statement are negative. <Saúl Cordero - Last Filed: 05/17/24 08:54> ROS Other: All systems not noted in ROS Statement are negative. <Fern Felipe - Last Filed: 05/17/24 17:53> ROS Statement: Those systems with pertinent positive or pertinent negative responses have been documented in the HPI. 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 RECENT POSITIVE HEMOCCULT TEST, right lung cancer History of Any Multi-Drug Resistant Organisms: None Reported Past Surgical History: Hernia Repair, Orthopedic Surgery Additional Past Surgical History / Comment(s): right cyst removed from chest, left knee tendon repair, colonoscopy Past Anesthesia/Blood Transfusion Reactions: Postoperative Nausea & Vomiting (PONV) Additional Past Anesthesia/Blood Transfusion Reaction / Comment(s): no blood transfusion Past Psychological History: Anxiety Smoking Status: Current every day smoker Past Alcohol Use History: None Reported Past Drug Use History: None Reported - Past Family History Father Family Medical History: Cancer Additional Family Medical History / Comment(s): prostate/bone <Fern Felipe - Last Filed: 05/17/24 17:53> General Exam <Fern Felipe - Last Filed: 05/17/24 17:53> - General Exam Comments Initial Comments: PE: CONSTITUTIONAL: No apparent distress, well appearing SKIN: Warm, dry, no jaundice, hives or petechiae EYES: Pupils are equally round, extraocular movements intact without nystagmus, clear conjunctiva, non-icteric sclera HENT: Normocephalic, atraumatic, dry mucus membranes, oropharynx clear without exudates NECK: , Full range of motion, normal appearance PULMONARY: Clear to auscultation without wheezes, rhonchi, or rales, normal excursion, no accessory muscle use and no stridor CARDIOVASCULAR: Regular rate, rhythm, normal S1 and S2. No appreciated murmurs, rubs or gallops. Strong radial pulses with intact distal perfusion. No lower extremity edema GASTROINTESTINAL: [soft, active bowel sounds throughout, non-tender, non- distended, no palpable masses, no rebound or guarding. Hepatomegaly noted, no splenomegaly GENITOURINARY: MUSCULOSKELETAL: Extremities have no gross deformity, no edema, redness, or swelling. No calf swelling NEUROLOGIC:_a/o x 3, GCS 15, normal mentation and speech. Moves all extremities x 4 without motor or sensory deficit PSYCHIATRIC:_normal mood and affect, thought process is clear and linear (Fern Felipe) Course Vital Signs 05/17/24 05/17/24 05/17/24 04:08 05:05 06:28 Temperature 97.6 F 98.6 F 98.8 F Pulse Rate 115 H 105 H 93 Respiratory 18 18 18 Rate Blood Pressure 131/75 138/76 146/73 O2 Sat by Pulse 98 96 97 Oximetry 05/17/24 05/17/24 08:32 10:13 Temperature 98.5 F Pulse Rate 82 80 Respiratory 18 18 Rate Blood Pressure 137/69 138/77 O2 Sat by Pulse 93 L 95 Oximetry EKG Findings - EKG Comments: EKG Findings:: Sinus tachycardia, rate 107 bpm, NE interval 174 ms, QT/QTc 335/397 ms, left axis deviation, right bundle branch block, no STEMI; compared to EKG performed on 12/27/23 New RBBB from prior <Fern Felipe - Last Filed: 05/17/24 17:53> Medical Decision Making - Lab Data Result diagrams: 05/17/24 05:39 05/17/24 05:39 <Saúl Cordero - Last Filed: 05/17/24 08:54> - Lab Data Result diagrams: 05/17/24 05:39 05/17/24 05:39 <Fern Felipe - Last Filed: 05/17/24 17:53> - Medical Decision Making Case discussed with [facility], Dr. Collins who will admit covering Dr. Olivo, who admits for Dr. garcia CT scan interpreted by myself has concern for gastritis. Chest x-ray reveals no acute abnormality Patient reevaluated and resting comfortably in bed. Patient has hypomagnesemia and persistent symptoms. Patient will be admitted. Admission orders written. Patient states he has lost approximately 40 pounds in the last 4 months. Patient had lobectomy done in December. Patient has had some symptoms since that time. Diagnosis: Gastritis, intractable vomiting Acute, acute Complicated with hypomagnesemia Threat to electrolyte balance (Saúl Cordero) Was pt. sent in by a medical professional or institution (, PA, FITTER MACHINIST, urgent care, hospital, or jail...) When possible be specific @ -[No] Did you speak to anyone other than the patient for history (EMS, parent, family, police, friend...)? What history was obtained from this source @Spoke with who assist in providing history Did you review nursing and triage notes (agree or disagree)? Why? @ -[I reviewed and agree with nursing and triage notes] Were old charts reviewed (outside hosp., previous admission, EMS record, old EKG, old radiological studies, urgent care reports/EKG's, jail records)? Report findings @Medical records reviewed, patient presented here 05/08/24 for similar complaint; Ultrasound of the abdomen was performed on 04/16/2024 for a lump on the right side of his abdomen, was negative for masses postsurgery, CT scan abdomen pelvis with contrast was obtained on 02/27/2024 for lower abdominal pain showed diverticulitis circumferential bladder wall thickening for possible cystitis. Differential Diagnosis (chest pain, altered mental status, abdominal pain women, abdominal pain men, vaginal bleeding, weakness, fever, dyspnea, syncope, headache, dizziness, GI bleed, back pain, seizure, CVA, palpatations, mental health, musculoskeletal)? @ -Differential Abdominal Pain Men: Appendicitis, cholecystitis, diverticulosis, ischemic bowel, pancreatitis, hepatitis, UTI, gastroenteritis, incarcerated hernia, bowel obstruction, constipation, inflammatory bowel, hepatitis, peptic ulcer disease this is not meant to be an all-inclusive list EKG interpreted by me (3pts min.). @ -[As above] X-rays interpreted by me (1pt min.). @ -[None done] U/S interpreted by me (1pt. min.). @ -[None done] What testing was considered but not performed or refused? (CT, X-rays, U/S, labs)? Why? @ -[None] What meds were considered but not given or refused? Why? @ -[None] Did you discuss the management of the patient with other professionals (professionals i.e. , PA, FITTER MACHINIST, lab, RT, psych nurse, social work supervisor, shank turner, teacher, mail officer, human services case manager)? Give summary @ -[No] Was smoking cessation discussed for >3mins.? @ -[No] Was critical care preformed (if so, how long)? @ -[No] Were there social determinants of health that impacted care today? How? (Homelessness, low income, unemployed, alcoholism, drug addiction, transportation, low edu. Level, literacy, decrease access to med. care, custodial, rehab)? @ -[No] Was there de-escalation of care discussed even if they declined (Discuss DNR or withdrawal of care, Hospice)? @ -[No] What co-morbidities impacted this encounter? (DM, HTN, Smoking, COPD, CAD, Cancer, CVA, ARF, Chemo, Hep., AIDS, mental health diagnosis, sleep apnea, morbid obesity)? @ -[None] Was patient admitted / discharged? Hospital course, mention meds given and route , prescriptions, significant lab abnormalities, going to OR and other pertinent info. @ -[hospital course] Patient is a pleasant 63-year-old with a past medical history of lung cancer status post lobectomy presenting today for nausea vomiting x 2 weeks, concern for bright red emesis last night usure if bloody. No black or bloody stools. Patient denies chest pain or shortness of breath. On my assessment patient is chronically ill-appearing but nontoxic and in no acute distress. Mucous remains moist. Exam significant for hepatomegaly palpated on abdominal exam no abdominal tenderness. Differential diagnosis is broad, top considerations noted above; plan for fluids, nausea medications, CT abdomen pelvis, and place, lipase, comprehensive labs, urinalysis in addition to EKG, troponin and chest x- ray to ensure nausea vomiting is not secondary to cardiac etiology. Patient is agreeable plan of care. Labs I reviewed patient's labs, significant for mild leukocytosis white blood cell count 16.2 with elevated neutrophils, chloride 93, sodium 136, BUN 27, magnesium 1.2. Ordered IV replacement. Pending CT scan read, patient signed out to oncoming physician, Dr. Cordero. (Fern Felipe) - Lab Data Lab Results 05/17/24 05/17/24 05/17/24 Range/Units 05:39 05:39 05:39 WBC 16.2 H (3.8-10.6) k/uL RBC 5.23 (4.30-5.90) m/uL Hgb 16.4 (13.0-17.5) gm/dL Hct 49.2 (39.0-53.0) % MCV 94.2 (80.0-100.0) fL MCH 31.3 (25.0-35.0) pg MCHC 33.2 (31.0-37.0) g/dL RDW 12.8 (11.5-15.5) % Plt Count 364 (150-450) k/uL MPV 7.8 Neutrophils % 79 % Lymphocytes % 14 % Monocytes % 5 % Eosinophils % 0 % Basophils % 0 % Neutrophils # 12.8 H (1.3-7.7) k/uL Lymphocytes # 2.2 (1.0-4.8) k/uL Monocytes # 0.8 (0-1.0) k/uL Eosinophils # 0.0 (0-0.7) k/uL Basophils # 0.0 (0-0.2) k/uL Sodium 136 L (137-145) mmol/L Potassium 3.9 (3.5-5.1) mmol/L Chloride 93 L (98-107) mmol/L Carbon Dioxide 29 (22-30) mmol/L Anion Gap 14 mmol/L BUN 27 H (9-20) mg/dL Creatinine 1.05 (0.66-1.25) mg/dL Est GFR (CKD-EPI)AfAm 87 (>60 ml/min/1.73 sqM) Est GFR (CKD-EPI)NonAf 75 (>60 ml/min/1.73 sqM) Glucose 113 H (74-99) mg/dL Plasma Lactic Acid Juan (0.7-2.0) mmol/L Calcium 10.2 (8.4-10.2) mg/dL Phosphorus (2.5-4.5) mg/dL Magnesium (1.6-2.3) mg/dL Total Bilirubin 0.8 (0.2-1.3) mg/dL AST 27 (17-59) U/L ALT 14 (4-49) U/L Alkaline Phosphatase 59 (38-126) U/L Troponin I 0.012 (0.000-0.034) ng/mL Total Protein 7.5 (6.3-8.2) g/dL Albumin 4.7 (3.5-5.0) g/dL Amylase 45 (30-110) U/L Lipase 38 (23-300) U/L Urine Color Urine Appearance (Clear) Urine pH (5.0-8.0) Ur Specific [place] (1.001-1.035) Urine Protein (Negative) Urine Glucose (UA) (Negative) Urine Ketones (Negative) Urine Blood (Negative) Urine Nitrite (Negative) Urine Bilirubin (Negative) Urine Urobilinogen (<2.0) mg/dL Ur Leukocyte Esterase (Negative) Urine RBC (0-5) /hpf Urine WBC (0-5) /hpf Urine Mucus (None) /hpf 05/17/24 05/17/24 05/17/24 Range/Units 06:25 06:25 07:21 WBC (3.8-10.6) k/uL RBC (4.30-5.90) m/uL Hgb (13.0-17.5) gm/dL Hct (39.0-53.0) % MCV (80.0-100.0) fL MCH (25.0-35.0) pg MCHC (31.0-37.0) g/dL RDW (11.5-15.5) % Plt Count (150-450) k/uL MPV Neutrophils % % Lymphocytes % % Monocytes % % Eosinophils % % Basophils % % Neutrophils # (1.3-7.7) k/uL Lymphocytes # (1.0-4.8) k/uL Monocytes # (0-1.0) k/uL Eosinophils # (0-0.7) k/uL Basophils # (0-0.2) k/uL Sodium (137-145) mmol/L Potassium (3.5-5.1) mmol/L Chloride (98-107) mmol/L Carbon Dioxide (22-30) mmol/L Anion Gap mmol/L BUN (9-20) mg/dL Creatinine (0.66-1.25) mg/dL Est GFR (CKD-EPI)AfAm (>60 ml/min/1.73 sqM) Est GFR (CKD-EPI)NonAf (>60 ml/min/1.73 sqM) Glucose (74-99) mg/dL Plasma Lactic Acid Juan 1.8 (0.7-2.0) mmol/L Calcium (8.4-10.2) mg/dL Phosphorus 3.3 (2.5-4.5) mg/dL Magnesium 1.2 L (1.6-2.3) mg/dL Total Bilirubin (0.2-1.3) mg/dL AST (17-59) U/L ALT (4-49) U/L Alkaline Phosphatase (38-126) U/L Troponin I (0.000-0.034) ng/mL Total Protein (6.3-8.2) g/dL Albumin (3.5-5.0) g/dL Amylase (30-110) U/L Lipase (23-300) U/L Urine Color Yellow Urine Appearance Clear (Clear) Urine pH 6.5 (5.0-8.0) Ur Specific [place] 1.044 H (1.001-1.035) Urine Protein 1+ H (Negative) Urine Glucose (UA) Negative (Negative) Urine Ketones Negative (Negative) Urine Blood Negative (Negative) Urine Nitrite Negative (Negative) Urine Bilirubin Negative (Negative) Urine Urobilinogen <2.0 (<2.0) mg/dL Ur Leukocyte Esterase Negative (Negative) Urine RBC 2 (0-5) /hpf Urine WBC 3 (0-5) /hpf Urine Mucus Few H (None) /hpf Disposition Is patient prescribed a controlled substance at d/c from ED?: No Time of Disposition: 08:49 <Saúl Cordero - Last Filed: 05/17/24 08:54> <Fern Felipe - Last Filed: 05/17/24 17:53> Clinical Impression: Gastritis, Hypomagnesemia Disposition: ADMITTED IP TO THIS HOSP
[2024-05-17 08:14] LABS: Appearance,Urine Clear (Clear); Bilirubin,Urine Negative (Negative); Blood,Urine Negative (Negative); Color,Urine Yellow; Glucose,Urine (UA) Negative (Negative); Ketones,Urine Negative (Negative); Leukocyte Esterase,Urine Negative (Negative); Mucus,Urine Few /hpf; Nitrite,Urine Negative (Negative); PH, Urine 6.5 (5.0-8.0); Protein,Urine 1+ (Negative); RBC,Urine 2 /hpf (0-5); Specific Gravity,Urine 1.044 (1.001-1.035); Urobilinogen,Urine <2.0 mg/dL (<2.0); WBC,Urine 3 /hpf (0-5)
[2024-05-17] MEDS: MAGNESIUM SULFATE-D5W PMX 1 GM in DEXTROSE/WATER 1 100ML.BAG IVPB SCH (08:29)
[2024-05-17] MEDS ORDERED: ACETAMINOPHEN TAB 325 MG TAB PO PRN (08:49)
[2024-05-17] MEDS ORDERED: ONDANSETRON 4 MG/2 ML VIAL IVP PRN ×2 (08:49→14:36)
[2024-05-17] MEDS ORDERED: NALOXONE 0.4 MG/ML 1 ML VIAL IV PRN (08:49)
[2024-05-17] MEDS ORDERED: PROCHLORPERAZINE SUPPOSITORY 25 MG SUPP RECTAL PRN (08:49)
[2024-05-17] MEDS: MAGNESIUM OXIDE 400 MG TAB PO SCH (09:05)
[2024-05-17] MEDS: SODIUM CHLORIDE 0.9% 1,000 ML IV SCH (09:08)
[2024-05-17] MEDS: PANTOPRAZOLE 40 MG/10 ML VIAL IV SCH ×2 (09:08→20:11)
--- NOTE | 2024-05-17 09:27 | CT ---
EXAMINATION TYPE: CT abdomen pelvis w con DATE OF EXAM: 05/17/2024 COMPARISON: 02/27/2024 HISTORY: NAUSEA, VOMITING CT DLP: 882.1 mGycm CONTRAST: CT scan of the abdomen and pelvis is performed without Oral Contrast and with IV Contrast, patient in jected with 100 mL of Isovue 300. FINDINGS: LUNG BASES-: No visible nodule. No infiltrate. LIVER/GB: No calcified gallstones. Hepatic steatosis noted. No space occupying hepatic lesion. Eben iary tree is of normal caliber. PANCREAS: No inflammation. No distinct mass. SPLEEN: No splenic enlargement. No lesion seen. ADRENALS: No nodule. No thickening. KIDNEYS/BLADDER: No hydronephrosis. No nephrolithiasis. 1 cm exophytic cyst midpole right kidney. U rinary bladder grossly unremarkable. BOWEL: Normal appendix. Normal bowel caliber. No inflammation. Sigmoid diverticulosis without diver ticulitis. There may be a degree of gastric wall thickening. Correlate for gastritis. GENITAL ORGANS: No gross abnormality. LYMPH NODES: No greater than 1cm abdominal or pelvic lymph nodes are appreciated. AORTA: No significant abnormality. OSSEOUS STRUCTURES: No significant abnormality is seen. OTHER: No significant additional abnormality is seen. IMPRESSION: 1. There may be a degree of gastric wall thickening. Correlate for gastritis. [facility], , 05/17/2024 7:40 AM
--- NOTE | 2024-05-17 09:27 | XR ---
EXAMINATION TYPE: XR chest 2V DATE OF EXAM: 05/17/2024 COMPARISON: 01/05/2024 HISTORY: 63-year-old male shortness of breath, difficulty breathing TECHNIQUE: PA and lateral views FINDINGS: Heart normal size. Aorta and pulmonary vasculature within normal limits. Bilateral nipple shadows. No consolidation or pleural effusion. Mild hyperinflation. [facility] mid thoracic spine. IMPRESSION: COPD. No acute process seen. [facility], , 05/17/2024 8:28 AM
[2024-05-17] MEDS: carvediloL 6.25 MG TAB PO SCH (11:19)
--- NOTE | 2024-05-17 13:45 | P.GSCN ---
History of Present Illness Consult date: 05/17/24 History of present illness: CHIEF COMPLAINT: Intractable nausea and vomiting HISTORY OF PRESENT ILLNESS: This is a 63-year-old male who presented to the hospital with complaints of intractable nausea and vomiting x 2 weeks. Patient reports that he has had a 50 pound weight loss over the last 2 and half months. He does have a known history of lung cancer with a lobectomy in December 2023. He reports that he has been sick since that procedure. He continues to smoke. He reports ports that he is trying to quit. He has never had a EGD before. Last colonoscopy was about 5 years ago with colon polyps. He reports that he is due for colonoscopy. He denies any blood in the emesis. Denies any coffee-ground emesis. And denies any change in his bowel movements. Hemoglobin on admission was 16. Magnesium low at 1.[address] scan had reported a gastric wall thickening correlate for gastritis. 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 PAST SURGICAL HISTORY: Hernia repair, right middle lobectomy for lung cancer MEDICATIONS: See below ALLERGIES: See below SOCIAL HISTORY: No illicit drug use. REVIEW OF SYSTEMS: CONSTITUTIONAL: Denies fever or chills. HEENT: Denies blurred vision, vision changes, or eye pain. Denies hemoptysis CARDIOVASCULAR: Denies chest pain or pressure. RESPIRATORY: No shortness of breath. GASTROINTESTINAL: See HPI for pertinent findings HEMATOLOGIC: Denies bleeding disorders. GENITOURINARY: Denies any blood in urine or increased urinary frequency. SKIN: Denies pruitis. Denies rash. PHYSICAL EXAM: VITAL SIGNS: Reviewed GENERAL: Well-developed in no acute distress. HEENT: No sclera icterus. Extraocular movements grossly intact. Moist buccal mucosa. Head is atraumatic, normocephalic. No nasal drainage. ABDOMEN: Soft. Nondistended. Mild discomfort epigastric area NEUROLOGIC: Alert and oriented. Cranial nerves II through XII grossly intact. LABORATORY DATA: WBC 16.2 Hgb 16.4 platelets 364 Sodium 136 potassium 3.9 creatinine 1.05 LFTs normal Lactic acid 1.8 Lipase 38 magnesium 1.2 IMAGING: CT scan abdomen pelvis reports there may be a degree of gastric wall thickening. Correlate for gastritis ASSESSMENT: 1. Intractable nausea and vomiting with a 50 pound weight loss 2. Gastric wall thickening noted on CAT scan. Possible gastritis 3. History of colon polyps and is due for colonoscopy 4. History of lung cancer status post lobectomy 5. Hypomagnesemia. Patient received magnesium supplement PLAN: -Patient scheduled for EGD and colonoscopy on Monday with Dr. Vu -Continue clear liquid diet -Continue IV fluids -Continue to monitor electrolytes and correct as needed -Start bowel prep on Monday Physician Knife Sharpener note has been reviewed by physician. Signing provider agrees with the documented findings, assessment, and plan of care. 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 RECENT POSITIVE HEMOCCULT TEST, right lung cancer History of Any Multi-Drug Resistant Organisms: None Reported Past Surgical History: Hernia Repair, Orthopedic Surgery Additional Past Surgical History / Comment(s): right cyst removed from chest, left knee tendon repair, colonoscopy Past Anesthesia/Blood Transfusion Reactions: Postoperative Nausea & Vomiting (PONV) Additional Past Anesthesia/Blood Transfusion Reaction / Comm: no blood transfusion Past Psychological History: Anxiety Smoking Status: Current every day smoker Past Alcohol Use History: None Reported Past Drug Use History: None Reported - Past Family History Father Family Medical History: Cancer Additional Family Medical History / Comment(s): prostate/bone Medications and Allergies Home Medications Medication Instructions Recorded Confirmed Type ALPRAZolam 1 mg PO TID PRN 01/04/17 05/17/24 History carisoprodoL [Soma] 350 mg PO TID PRN 01/04/17 05/17/24 History Ondansetron Odt [Zofran Odt] 4 mg PO Q8HR PRN #10 tab 05/08/24 05/17/24 Rx Aspirin EC [Ecotrin Low Dose] 81 mg PO DAILY 05/17/24 05/17/24 History Ezetimibe [Zetia] 10 mg PO DAILY 05/17/24 05/17/24 History amLODIPine [Norvasc] 5 mg PO BID 05/17/24 05/17/24 History carvediloL [Coreg] 6.25 mg PO BID 05/17/24 05/17/24 History hydroCHLOROthiazide 25 mg PO DAILY 05/17/24 05/17/24 History ondansetron HCL [Zofran] 8 mg PO Q8HR PRN 05/17/24 05/17/24 History Allergies Allergy/AdvReac Type Severity Reaction Status Date / Time Sulfa (Sulfonamide Allergy Swelling Verified 05/17/24 09:55 Antibiotics) Surgical - Exam Vital Signs Temp Pulse Resp BP Pulse Ox 97.6 F 115 H 18 131/75 98 05/17/24 04:08 05/17/24 04:08 05/17/24 04:08 05/17/24 04:08 05/17/24 04:08 Results - Labs 05/17/24 05:39 05/17/24 05:39 Abnormal Lab Results - Last 24 Hours (Table) 05/17/24 05/17/24 05/17/24 Range/Units 05:39 05:39 06:25 WBC 16.2 H (3.8-10.6) k/uL Neutrophils # 12.8 H (1.3-7.7) k/uL Sodium 136 L (137-145) mmol/L Chloride 93 L (98-107) mmol/L BUN 27 H (9-20) mg/dL Glucose 113 H (74-99) mg/dL Magnesium 1.2 L (1.6-2.3) mg/dL Ur Specific [place] (1.001-1.035) Urine Protein (Negative) Urine Mucus (None) /hpf 05/17/24 Range/Units 07:21 WBC (3.8-10.6) k/uL Neutrophils # (1.3-7.7) k/uL Sodium (137-145) mmol/L Chloride (98-107) mmol/L BUN (9-20) mg/dL Glucose (74-99) mg/dL Magnesium (1.6-2.3) mg/dL Ur Specific [place] 1.044 H (1.001-1.035) Urine Protein 1+ H (Negative) Urine Mucus Few H (None) /hpf Diabetes panel 05/17/24 Range/Units 05:39 Sodium 136 L (137-145) mmol/L Potassium 3.9 (3.5-5.1) mmol/L Chloride 93 L (98-107) mmol/L Carbon Dioxide 29 (22-30) mmol/L BUN 27 H (9-20) mg/dL Creatinine 1.05 (0.66-1.25) mg/dL Glucose 113 H (74-99) mg/dL Calcium 10.2 (8.4-10.2) mg/dL AST 27 (17-59) U/L ALT 14 (4-49) U/L Alkaline Phosphatase 59 (38-126) U/L Total Protein 7.5 (6.3-8.2) g/dL Albumin 4.7 (3.5-5.0) g/dL Calcium panel 05/17/24 05/17/24 Range/Units 05:39 06:25 Calcium 10.2 (8.4-10.2) mg/dL Phosphorus 3.3 (2.5-4.5) mg/dL Albumin 4.7 (3.5-5.0) g/dL Pituitary panel 05/17/24 Range/Units 05:39 Sodium 136 L (137-145) mmol/L Potassium 3.9 (3.5-5.1) mmol/L Chloride 93 L (98-107) mmol/L Carbon Dioxide 29 (22-30) mmol/L BUN 27 H (9-20) mg/dL Creatinine 1.05 (0.66-1.25) mg/dL Glucose 113 H (74-99) mg/dL Calcium 10.2 (8.4-10.2) mg/dL Adrenal panel 05/17/24 Range/Units 05:39 Sodium 136 L (137-145) mmol/L Potassium 3.9 (3.5-5.1) mmol/L Chloride 93 L (98-107) mmol/L Carbon Dioxide 29 (22-30) mmol/L BUN 27 H (9-20) mg/dL Creatinine 1.05 (0.66-1.25) mg/dL Glucose 113 H (74-99) mg/dL Calcium 10.2 (8.4-10.2) mg/dL Total Bilirubin 0.8 (0.2-1.3) mg/dL AST 27 (17-59) U/L ALT 14 (4-49) U/L Alkaline Phosphatase 59 (38-126) U/L Total Protein 7.5 (6.3-8.2) g/dL Albumin 4.7 (3.5-5.0) g/dL
[2024-05-17] MEDS: IPRATROPIUM-ALBUTEROL 3 ML NEB INHALATION PRN (15:50)
[2024-05-17] MEDS: HEPARIN SODIUM,PORCINE 5,000 UNIT/ML 1 ML VIAL SQ SCH (17:02)
--- NOTE | 2024-05-17 20:06 | P.HPIM ---
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 Patient also having loss of weight. Patient states that he is not able to eat due to significant nausea and vomiting. Denied any hematemesis. Denied any dark-colored stools. Patient states that he was seen by his PCP and was placed on antibiotics to treat for diverticulitis. He is also being continued on antiemetic medications. Denied any complaints abdominal pain. Patient does have numbness overlying the right upper chest due to prior history of nerve block. Denied any chest pain or shortness of breath. Patient has been afebrile on admission. Patient states that he lost about 50 LB's during the last 4 months. Patient states that he was seen at [facility] and was discharged recently.. Patient states that he was smoking and using marijuana to help with the pain and nausea. Quit 1 and [address] of the abdomen pelvis showed there may be a degree of gastric wall thickening. Correlate for gastritis. Chest x-ray showed COPD. No acute process seen. EKG showed sinus tachycardia. Laboratory data showed WBC 16.2 hemoglobin 16.4 and platelets 364 neutrophils 12.8 sodium 136 potassium 3.9 chloride 93 BUN 27 creatinine 1.05 and blood sugar 113 and magnesium 1.2 liver enzymes are not elevated amylase 45 lipase 38 Urinalysis is negative for infection. Review of Systems Constitutional: Patient states that he has subjective fever and chills at home. Generalized weakness and fatigue and weight loss. Abdomen: Patient does complain of nausea and vomiting. No diarrhea. No abdominal pain. Cardiovascular: Patient denies any chest pain or short of breath no palpitations. Respiratory: patient denied any cough or sputum production. No shortness of breath Neurologic: Patient denied any numbness or tingling. no headache. Musculoskeletal: Patient denies any complaints of joint swelling or deformity. Skin: Negative Psychiatric: Negative Endocrine: No heat or cold intolerance. No recent weight gain. Genitourinary: No dysuria or hematuria. All other 14 point ROS negative except the above Past Medical History Past Medical History: Cancer, Eye Disorder, Hyperlipidemia, Hypertension Additional Past Medical History / Comment(s): HX OF CRYPTOCOCCUS MENINGITIS AT AGE 11 RESULTING IN BLINDNESS TO LT EYE. RECENT POSITIVE HEMOCCULT TEST, right lung cancer History of Any Multi-Drug Resistant Organisms: None Reported Past Surgical History: Hernia Repair, Orthopedic Surgery Additional Past Surgical History / Comment(s): right cyst removed from chest, left knee tendon repair, colonoscopy Past Anesthesia/Blood Transfusion Reactions: Postoperative Nausea & Vomiting (PONV) Additional Past Anesthesia/Blood Transfusion Reaction / Comment(s): no blood transfusion Past Psychological History: Anxiety Smoking Status: Current every day smoker Past Alcohol Use History: None Reported Past Drug Use History: None Reported - Past Family History Father Family Medical History: Cancer Additional Family Medical History / Comment(s): prostate/bone Medications and Allergies Home Medications Medication Instructions Recorded Confirmed Type ALPRAZolam 1 mg PO TID PRN 01/04/17 05/17/24 History carisoprodoL [Soma] 350 mg PO TID PRN 01/04/17 05/17/24 History Ondansetron Odt [Zofran Odt] 4 mg PO Q8HR PRN #10 tab 05/08/24 05/17/24 Rx Aspirin EC [Ecotrin Low Dose] 81 mg PO DAILY 05/17/24 05/17/24 History Ezetimibe [Zetia] 10 mg PO DAILY 05/17/24 05/17/24 History amLODIPine [Norvasc] 5 mg PO BID 05/17/24 05/17/24 History carvediloL [Coreg] 6.25 mg PO BID 05/17/24 05/17/24 History hydroCHLOROthiazide 25 mg PO DAILY 05/17/24 05/17/24 History ondansetron HCL [Zofran] 8 mg PO Q8HR PRN 05/17/24 05/17/24 History Allergies Allergy/AdvReac Type Severity Reaction Status Date / Time Sulfa (Sulfonamide Allergy Swelling Verified 05/17/24 09:55 Antibiotics) Physical Exam Vitals: Vital Signs Temp Pulse Pulse Resp BP BP Pulse Ox 05/17/24 10:43 98.4 F 87 18 150/79 96 05/17/24 10:13 98.5 F 80 18 138/77 95 05/17/24 08:32 82 18 137/69 93 L 05/17/24 06:28 98.8 F 93 18 146/73 97 05/17/24 05:05 98.6 F 105 H 18 138/76 96 05/17/24 04:08 97.6 F 115 H 18 131/75 98 Intake and Output 05/16/24 05/17/24 05/17/24 22:59 06:59 14:59 Other: Weight 77.111 kg PHYSICAL EXAMINATION: Patient is lying in the bed,, no acute distress, awake alert and oriented.. HEENT: Normocephalic. Neck is supple. Pupils reactive. Nostrils clear. Oral cavity is moist. Neck reveals no JVD, carotid bruits, or thyromegaly. CHEST EXAMINATION: Trachea is central. Symmetrical expansion. Bilateral expira tory wheezing. Scattered rhonchi. Nonlabored breathing.. CARDIAC: Normal S1, S2 with no gallops. No murmurs ABDOMEN: Soft. Bowel sounds normal. No organomegaly. No abdominal bruits. Extremities: reveal no edema. No clubbing or cyanosis Neurologically awake, alert, oriented x3 with well-coordinated movements. No focal deficits noted Skin: No rash or skin lesions. Psychiatric: Coperative. Nonsuicidal, anxious. Musculoskeletal: No joint swelling or deformity. Normal range of motion. Results CBC & Chem 7: 05/17/24 05:39 05/17/24 05:39 Labs: Abnormal Lab Results - Last 24 Hours (Table) 05/17/24 05/17/24 05/17/24 Range/Units 05:39 05:39 06:25 WBC 16.2 H (3.8-10.6) k/uL Neutrophils # 12.8 H (1.3-7.7) k/uL Sodium 136 L (137-145) mmol/L Chloride 93 L (98-107) mmol/L BUN 27 H (9-20) mg/dL Glucose 113 H (74-99) mg/dL Magnesium 1.2 L (1.6-2.3) mg/dL Ur Specific [place] (1.001-1.035) Urine Protein (Negative) Urine Mucus (None) /hpf 05/17/24 Range/Units 07:21 WBC (3.8-10.6) k/uL Neutrophils # (1.3-7.7) k/uL Sodium (137-145) mmol/L Chloride (98-107) mmol/L BUN (9-20) mg/dL Glucose (74-99) mg/dL Magnesium (1.6-2.3) mg/dL Ur Specific [place] 1.044 H (1.001-1.035) Urine Protein 1+ H (Negative) Urine Mucus Few H (None) /hpf Thrombosis Risk Factor Assmnt - DVT/VTE Prophylaxis DVT/VTE Prophylaxis: Pharmacologic Prophylaxis ordered Assessment and Plan Assessment: Intractable nausea and vomiting likely due to gastritis. CT of the abdomen pelvis showed gastric wall thickening. Hypovolemic hyponatremia Severe-hypomagnesemia Significant weight loss. Patient states that he lost about 40 LB in the last 4 months. History of lung cancer status post right middle lobe resection and mediastinal lymph node dissection on 01/04/2024. Hypertension Hyperlipidemia Anxiety Ongoing nicotine addiction patient states he quit about 1 and half month ago Pulm underlying COPD DVT and GI prophylaxis with PPI and heparin subcu Patient will be continued on IV hydration with normal saline. Clear liquid diet. Replace magnesium. Continue symptomatic management for nausea. Continue with PPI IV twice daily. Current with home blood pressure medications medication and titrate dose. Gastroenterology service is not available at this time. General surgery was consulted and is planning for EGD and colonoscopy possibly on Monday. Current with DuoNebs and monitor respiratory status closely. Smoking cessation has been counseled extensively. Time with Patient: Greater than 30
[2024-05-17] MEDS: amLODIPine 5 MG TAB PO SCH (20:11)
[2024-05-17] MEDS: BUDESONIDE 1 MG/2 ML NEBU INHALATION SCH (20:22)
[2024-05-18] MEDS: EZETIMIBE 10 MG TAB PO SCH (08:27)
[2024-05-18 09:31] LABS: ALT 9 U/L (10-49); AST 18 U/L (14-35); Albumin 3.7 g/dL (3.8-4.9); Albumin/Globulin Ratio 1.95 Ratio (1.60-3.17); Alkaline Phosphatase 61 U/L (41-126); BUN/Creat Ratio 13.56 Ratio (12.00-20.00); Blood Urea Nitrogen 12.2 mg/dL (9.0-27.0); Calcium 8.8 mg/dL (8.7-10.3); Carbon Dioxide 25.8 mmol/L (21.6-31.8); Chloride 102 mmol/L (96-109); Globulin 1.9 g/dL (1.6-3.3); Glucose 116 mg/dL (70-110); Magnesium 1.5 mg/dL (1.5-2.4); Potassium 3.3 mmol/L (3.5-5.5); Sodium 139 mmol/L (135-145); Total Bilirubin 0.4 mg/dL (0.3-1.2); Total Protein 5.6 g/dL (6.2-8.2)
[2024-05-18 09:37] LABS: Basophils # (A) 0.11 X 10*3/uL (0.00-0.10); Eosinophils # (A) 0.22 X 10*3/uL (0.04-0.35); HCT 40.3 % (39.6-50.0); HGB 13.7 g/dL (13.0-17.0); Lymphocytes # (A) 3.77 X 10*3/uL (0.90-5.00); Lymphocytes % (A) 34.7 %; MCH 31.9 pg (27.0-32.0); MCV 93.7 FL (80.0-97.0); Monocytes # (A) 0.76 X 10*3/uL (0.20-1.00); NRBC Per 100 WBC 0 X 10*3/uL (0.00-0.01); Neutrophils # (A) 5.98 X 10*3/uL (1.80-7.70); Neutrophils % (A) 54.9 %; Platelet Count 278 X 10*3/uL (140-440); RDW 13.3 % (11.5-14.5); WBC 10.88 X 10*3/uL (4.50-10.00)
--- NOTE | 2024-05-18 11:25 | P.PN ---
Subjective Progress Note Date: 05/18/24 No acute events overnight. No nausea or vomiting. No worsening abdominal pain. No fevers or chills. No shortness of breath or chest pain. No melena or hematochezia. No hematemesis. Objective - Vital Signs Vital signs: Vital Signs Temp 97.8 F 05/18/24 07:10 Pulse 80 05/18/24 08:25 Resp 16 05/18/24 07:10 BP 132/72 05/18/24 07:10 Pulse Ox 96 05/18/24 07:10 FiO2 Intake & Output 05/17/24 05/18/24 05/18/24 18:59 06:59 18:59 Intake Total 1420 320 Balance 1420 320 Weight 77.111 kg Intake: Oral 1420 320 Other: # Voids 1 - Exam Gen: AxO, NAD Pulm: non-labored respirations Abd: Soft, non-tender, non-distended. No guarding/rebound/rigidity Extrem: no edema seen - Labs CBC & Chem 7: 05/18/24 04:06 05/18/24 04:06 Labs: Abnormal Lab Results - Last 24 Hours (Table) 05/18/24 05/18/24 Range/Units 04:06 04:06 WBC 10.88 H (4.50-10.00) X 10*3/uL RBC 4.30 L (4.40-5.60) X 10*6/uL Basophils # 0.11 H (0.00-0.10) X 10*3/uL Potassium 3.3 L (3.5-5.5) mmol/L Glucose 116 H (70-110) mg/dL ALT 9 L (10-49) U/L Total Protein 5.6 L (6.2-8.2) g/dL Albumin 3.7 L (3.8-4.9) g/dL Assessment and Plan Assessment: Patient is a 63-year-old male who presents with abdominal pain N/V and weight loss and CT evidence of gastritis. Plan: -Diet as tolerated -Colonoscopy prep on 05/19 -NPO at midnight on 05/19 -Care per primary -Plan for colonoscopy and EGD on 05/20 Primitivo Jones M.D. General Surgery
[2024-05-18] MEDS: MAGNESIUM SULFATE-D5W PMX 1 GM in DEXTROSE/WATER 1 100ML.BAG IVPB ONE (11:38)
[2024-05-18] MEDS: POTASSIUM CHLORIDE ER 20 MEQ TAB.ER PO SCH (11:38)
--- NOTE | 2024-05-18 11:53 | P.PN ---
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 Patient also having loss of weight. Patient states that he is not able to eat due to significant nausea and vomiting. Denied any hematemesis. Denied any dark-colored stools. Patient states that he was seen by his PCP and was placed on antibiotics to treat for diverticulitis. He is also being continued on antiemetic medications. Denied any complaints abdominal pain. Patient does have numbness overlying the right upper chest due to prior history of nerve block. Denied any chest pain or shortness of breath. Patient has been afebrile on admission. Patient states that he lost about 50 LB's during the last 4 months. Patient states that he was seen at [facility] and was discharged recently.. Patient states that he was smoking and using marijuana to help with the pain and nausea. Quit 1 and [address] of the abdomen pelvis showed there may be a degree of gastric wall thickening. Correlate for gastritis. Chest x-ray showed COPD. No acute process seen. EKG showed sinus tachycardia. Laboratory data showed WBC 16.2 hemoglobin 16.4 and platelets 364 neutrophils 12.8 sodium 136 potassium 3.9 chloride 93 BUN 27 creatinine 1.05 and blood sugar 113 and magnesium 1.2 liver enzymes are not elevated amylase 45 lipase 38 Urinalysis is negative for infection. 05/18 Patient nausea vomiting feels better No epigastric pain or tenderness. No chest pain or dyspnea. His potassium magnesium still on the low side and this been replaced. Hemodynamically stable. WBC trending down, today 10.8. Rest of CBC, BMP and liver enzymes were unremar kable except for low potassium magnesium which are being replaced Surgery team on the case for colonoscopy/EGD on Monday Plan of care discussed with patient and staff and he is agreeable Review of systems CONSTITUTIONAL: No fever, no malaise, no fatigue. HEENT: No recent visual problems or hearing problems. Denied any sore throat. NEUROLOGICAL: No headaches, no weakness, no numbness. HEMATOLOGICAL: Denies any bleeding or petechiae. GENITOURINARY: Denies any burning micturition, frequency, or urgency. MUSCULOSKELETAL/RHEUMATOLOGICAL: Denies any joint pain, swelling, or any muscle pain. ENDOCRINE: Denies any polyuria or polydipsia. Active Medications Generic Name Dose Route Start Last Admin Trade Name Freq PRN Reason Stop Dose Admin Acetaminophen 650 mg 05/17/24 08:49 Acetaminophen Tab 325 Mg Tab PO Q6HR PRN Mild Pain or Fever > 100.5 Albuterol/Ipratropium 3 ml 05/17/24 14:33 05/18/24 08:11 Ipratropium-Albuterol 3 Ml Neb INHALATION 3 ml RT-QID PRN Administration Shortness Of Breath Or Wheezing Alprazolam 1 mg 05/17/24 11:04 Alprazolam 1 Mg Tab PO TID PRN Anxiety Amlodipine Besylate 5 mg 05/17/24 21:00 05/18/24 08:27 Amlodipine 5 Mg Tab PO 5 mg BID AMANDA Administration Budesonide 1 mg 05/17/24 20:00 05/18/24 08:11 Budesonide 1 Mg/2 Ml Nebu INHALATION 1 mg RT-BID AMANDA Administration Carvedilol 6.25 mg 05/17/24 11:15 05/18/24 08:27 Carvedilol 6.25 Mg Tab PO 6.25 mg BID-W/MEALS AMANDA Administration Ezetimibe 10 mg 05/18/24 09:00 05/18/24 08:27 Ezetimibe 10 Mg Tab PO 10 mg DAILY AMANDA Administration Heparin Sodium (Porcine) 5,000 unit 05/17/24 16:00 05/18/24 08:27 Heparin Sodium,Porcine 5,000 Unit/Ml 1 Ml Vial SQ 5,000 unit Q8HR AMANDA Administration Sodium Chloride 1,000 mls @ 75 mls/hr 05/17/24 09:00 05/18/24 00:39 Saline 0.9% IV 75 mls/hr .[id number] AMANDA Administration Magnesium Sulfate/Dextrose 1 100 mls @ 100 mls/hr 05/18/24 11:30 05/18/24 11:38 gm/ IV Solution IVPB 05/18/24 12:29 100 mls/hr ONCE ONE Administration Magnesium Oxide 400 mg 05/17/24 09:00 05/18/24 08:27 Magnesium Oxide 400 Mg Tab PO 400 mg BID AMANDA Administration Naloxone HCl 0.2 mg 05/17/24 08:49 Naloxone 0.4 Mg/Ml 1 Ml Vial IV Q2M PRN Opioid Reversal Ondansetron HCl 4 mg 05/17/24 14:36 Ondansetron 4 Mg/2 Ml Vial IVP Q6HR PRN Nausea And Vomiting Pantoprazole Sodium 40 mg 05/17/24 21:00 05/18/24 08:27 Pantoprazole 40 Mg/10 Ml Vial IV 40 mg BID AMANDA Administration Polyethylene Glycol/Electrolytes 4,000 ml 05/19/24 09:00 Peg 3350 (236 Gm/Btl) + Lytes 4,000 Ml Bottle PO 05/19/24 09:01 ONCE ONE Potassium Chloride 40 meq 05/18/24 12:00 05/18/24 11:38 Potassium Chloride Er 20 Meq Tab.Er PO 05/18/24 21:01 40 meq BID AMANDA Administration Prochlorperazine Maleate 25 mg 05/17/24 08:49 Prochlorperazine Suppository 25 Mg Supp RECTAL Q12HR PRN Nausea And Vomiting Objective - Vital Signs Vital signs: Vital Signs Temp 97.8 F 05/18/24 07:10 Pulse 80 05/18/24 08:25 Resp 16 05/18/24 07:10 BP 132/72 05/18/24 07:10 Pulse Ox 96 05/18/24 07:10 FiO2 Intake & Output 05/17/24 05/18/24 05/18/24 18:59 06:59 18:59 Intake Total 1420 320 Balance 1420 320 Weight 77.111 kg Intake: Oral 1420 320 Other: # Voids 1 - Exam GENERAL: The patient is alert and oriented x3, not in any acute distress. Well developed, well nourished. HEENT: Pupils are round and equally reacting to light. EOMI. No scleral icterus. No conjunctival pallor. Normocephalic, atraumatic. No pharyngeal erythema. No thyromegaly. CARDIOVASCULAR: S1 and S2 present. No murmurs, rubs, or gallops. PULMONARY: Chest is clear to auscultation, no wheezing , no crackles. ABDOMEN: Soft, nontender, nondistended, normoactive bowel sounds. No palpable organomegaly. MUSCULOSKELETAL: No joint swelling or deformity. EXTREMITIES: No cyanosis, clubbing, or pedal edema. NEUROLOGICAL: Gross neurological examination did not reveal any focal deficits. SKIN: No rashes. no petechiae. - Labs CBC & Chem 7: 05/18/24 04:06 05/18/24 04:06 Labs: Abnormal Lab Results - Last 24 Hours (Table) 05/18/24 05/18/24 Range/Units 04:06 04:06 WBC 10.88 H (4.50-10.00) X 10*3/uL RBC 4.30 L (4.40-5.60) X 10*6/uL Basophils # 0.11 H (0.00-0.10) X 10*3/uL Potassium 3.3 L (3.5-5.5) mmol/L Glucose 116 H (70-110) mg/dL ALT 9 L (10-49) U/L Total Protein 5.6 L (6.2-8.2) g/dL Albumin 3.7 L (3.8-4.9) g/dL Assessment and Plan Assessment: Intractable nausea and vomiting likely due to gastritis. CT of the abdomen pelvis showed gastric wall thickening. Hypovolemic hyponatremia Severe-hypomagnesemia Significant weight loss. Patient states that he lost about 40 LB in the last 4 months. History of lung cancer status post right middle lobe resection and mediastinal lymph node dissection on 01/04/2024. Hypertension Hyperlipidemia Anxiety Ongoing nicotine addiction patient states he quit about 1 and half month ago Pulm underlying COPD DVT and GI prophylaxis with PPI and heparin subcu Plan: Patient will be continued on IV hydration with normal saline. Clear liquid diet . Replace magnesium. Continue symptomatic management for nausea. Continue with PPI IV twice daily. Current with home blood pressure medications medication and titrate dose. Gastroenterology service is not available at this time. General surgery was consulted and is planning for EGD and colonoscopy possibly on Monday. Current with DuoNebs and monitor respiratory status closely. Smoking cessation has been counseled extensively.
[2024-05-18 14:33] VITALS: BMI 23.0
[2024-05-18] MEDS: ALPRAZolam 1 MG TAB PO PRN (23:27)
[2024-05-19] MEDS: HEPARIN SODIUM,PORCINE 5,000 UNIT/ML 1 ML VIAL SQ SCH ×2 (01:40→07:33)
[2024-05-19] MEDS: PEG 3350 (236 GM/BTL) + LYTES 4,000 ML BOTTLE PO ONE (08:33)
--- NOTE | 2024-05-19 09:20 | P.PN ---
Subjective Progress Note Date: 05/19/24 Principal diagnosis: Gastritis Patient feels well today. No new complaints. He is drinking his bowel prep. Denies any pain currently. Objective - Vital Signs Vital signs: Vital Signs Temp 97.5 F L 05/19/24 06:55 Pulse 80 05/19/24 08:22 Resp 16 05/19/24 06:55 BP 148/73 05/19/24 06:55 Pulse Ox 96 05/19/24 06:55 FiO2 Intake & Output 05/18/24 05/19/24 05/19/24 18:59 06:59 18:59 Intake Total 1860 460 560 Balance 1860 460 560 Weight 77.111 kg Intake: Oral 1860 460 560 Other: # Voids 1 - Exam Abdomen: Soft, nontender, nondistended - Labs CBC & Chem 7: 05/18/24 04:06 05/18/24 04:06 Labs: Abnormal Lab Results - Last 24 Hours (Table) 05/18/24 05/18/24 Range/Units 04:06 04:06 WBC 10.88 H (4.50-10.00) X 10*3/uL RBC 4.30 L (4.40-5.60) X 10*6/uL Basophils # 0.11 H (0.00-0.10) X 10*3/uL Potassium 3.3 L (3.5-5.5) mmol/L Glucose 116 H (70-110) mg/dL ALT 9 L (10-49) U/L Total Protein 5.6 L (6.2-8.2) g/dL Albumin 3.7 L (3.8-4.9) g/dL Assessment and Plan (1) Gastritis Narrative/Plan: 63-year-old male with gastric wall thickening on recent CAT scan. Being scheduled and prepped for upper and lower endoscopy tomorrow. Nothing to eat after midnight. Current Visit: Yes Status: Acute Code(s): K29.70 - GASTRITIS, UNSPECIFIED, WITHOUT BLEEDING SNOMED Code(s): 5993901
--- NOTE | 2024-05-19 14:09 | P.PN ---
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 Patient also having loss of weight. Patient states that he is not able to eat due to significant nausea and vomiting. Denied any hematemesis. Denied any dark-colored stools. Patient states that he was seen by his PCP and was placed on antibiotics to treat for diverticulitis. He is also being continued on antiemetic medications. Denied any complaints abdominal pain. Patient does have numbness overlying the right upper chest due to prior history of nerve block. Denied any chest pain or shortness of breath. Patient has been afebrile on admission. Patient states that he lost about 50 LB's during the last 4 months. Patient states that he was seen at [facility] and was discharged recently.. Patient states that he was smoking and using marijuana to help with the pain and nausea. Quit 1 and [address] of the abdomen pelvis showed there may be a degree of gastric wall thickening. Correlate for gastritis. Chest x-ray showed COPD. No acute process seen. EKG showed sinus tachycardia. Laboratory data showed WBC 16.2 hemoglobin 16.4 and platelets 364 neutrophils 12.8 sodium 136 potassium 3.9 chloride 93 BUN 27 creatinine 1.05 and blood sugar 113 and magnesium 1.2 liver enzymes are not elevated amylase 45 lipase 38 Urinalysis is negative for infection. 05/18 Patient nausea vomiting feels better No epigastric pain or tenderness. No chest pain or dyspnea. His potassium magnesium still on the low side and this been replaced. Hemodynamically stable. WBC trending down, today 10.8. Rest of CBC, BMP and liver enzymes were unremar kable except for low potassium magnesium which are being replaced Surgery team on the case for colonoscopy/EGD on Monday Plan of care discussed with patient and staff and he is agreeable 05/19 Patient up in bed, he has no nausea vomiting today and he tolerates liquid bowel preparation as he is planned to go colonoscopy and EGD tomorrow for gastric wall thickening. No chest pain or dyspnea. Review of systems CONSTITUTIONAL: No fever, no malaise, no fatigue. HEENT: No recent visual problems or hearing problems. Denied any sore throat. NEUROLOGICAL: No headaches, no weakness, no numbness. HEMATOLOGICAL: Denies any bleeding or petechiae. GENITOURINARY: Denies any burning micturition, frequency, or urgency. MUSCULOSKELETAL/RHEUMATOLOGICAL: Denies any joint pain, swelling, or any muscle pain. ENDOCRINE: Denies any polyuria or polydipsia. Active Medications Generic Name Dose Route Start Last Admin Trade Name Freq PRN Reason Stop Dose Admin Acetaminophen 650 mg 05/17/24 08:49 Acetaminophen Tab 325 Mg Tab PO Q6HR PRN Mild Pain or Fever > 100.5 Albuterol/Ipratropium 3 ml 05/17/24 14:33 05/18/24 20:21 Ipratropium-Albuterol 3 Ml Neb INHALATION 3 ml RT-QID PRN Administration Shortness Of Breath Or Wheezing Alprazolam 1 mg 05/17/24 11:04 05/18/24 23:27 Alprazolam 1 Mg Tab PO 1 mg TID PRN Administration Anxiety Amlodipine Besylate 5 mg 05/17/24 21:00 05/19/24 08:33 Amlodipine 5 Mg Tab PO 5 mg BID AMANDA Administration Budesonide 1 mg 05/17/24 20:00 05/19/24 08:13 Budesonide 1 Mg/2 Ml Nebu INHALATION 1 mg RT-BID AMANDA Administration Carvedilol 6.25 mg 05/17/24 11:15 05/19/24 08:32 Carvedilol 6.25 Mg Tab PO 6.25 mg BID-W/MEALS AMANDA Administration Ezetimibe 10 mg 05/18/24 09:00 05/19/24 08:33 Ezetimibe 10 Mg Tab PO 10 mg DAILY AMANDA Administration Heparin Sodium (Porcine) 5,000 unit 05/19/24 01:00 05/19/24 08:32 Heparin Sodium,Porcine 5,000 Unit/Ml 1 Ml Vial SQ 5,000 unit Q8HR AMANDA Administration Sodium Chloride 1,000 mls @ 75 mls/hr 05/17/24 09:00 05/18/24 00:39 Saline 0.9% IV 75 mls/hr .[id number] AMANDA Administration Magnesium Oxide 400 mg 05/17/24 09:00 05/19/24 08:33 Magnesium Oxide 400 Mg Tab PO 400 mg BID AMANDA Administration Naloxone HCl 0.2 mg 05/17/24 08:49 Naloxone 0.4 Mg/Ml 1 Ml Vial IV Q2M PRN Opioid Reversal Ondansetron HCl 4 mg 05/17/24 14:36 Ondansetron 4 Mg/2 Ml Vial IVP Q6HR PRN Nausea And Vomiting Pantoprazole Sodium 40 mg 05/17/24 21:00 05/19/24 08:33 Pantoprazole 40 Mg/10 Ml Vial IV 40 mg BID AMANDA Administration Prochlorperazine Maleate 25 mg 05/17/24 08:49 Prochlorperazine Suppository 25 Mg Supp RECTAL Q12HR PRN Nausea And Vomiting Objective - Vital Signs Vital signs: Vital Signs Temp 98.0 F 05/19/24 13:31 Pulse 70 05/19/24 13:31 Resp 16 05/19/24 13:31 BP 150/74 05/19/24 13:31 Pulse Ox 96 05/19/24 13:31 FiO2 Intake & Output 05/18/24 05/19/24 05/19/24 18:59 06:59 18:59 Intake Total 2030 180 9300 Balance 9205 806 8119 Weight 77.111 kg Intake: Oral 0365 989 2771 Other: # Voids 1 - Exam GENERAL: The patient is alert and oriented x3, not in any acute distress. Well developed, well nourished. HEENT: Pupils are round and equally reacting to light. EOMI. No scleral icterus. No conjunctival pallor. Normocephalic, atraumatic. No pharyngeal erythema. No thyromegaly. CARDIOVASCULAR: S1 and S2 present. No murmurs, rubs, or gallops. PULMONARY: Chest is clear to auscultation, no wheezing , no crackles. ABDOMEN: Soft, nontender, nondistended, normoactive bowel sounds. No palpable organomegaly. MUSCULOSKELETAL: No joint swelling or deformity. EXTREMITIES: No cyanosis, clubbing, or pedal edema. NEUROLOGICAL: Gross neurological examination did not reveal any focal deficits. SKIN: No rashes. no petechiae. - Labs CBC & Chem 7: 05/18/24 04:06 05/18/24 04:06 Assessment and Plan Assessment: Intractable nausea and vomiting likely due to gastritis. CT of the abdomen pelvis showed gastric wall thickening. Hypovolemic hyponatremia Severe-hypomagnesemia Significant weight loss. Patient states that he lost about 40 LB in the last 4 months. History of lung cancer status post right middle lobe resection and mediastinal lymph node dissection on 01/04/2024. Hypertension Hyperlipidemia Anxiety Ongoing nicotine addiction patient states he quit about 1 and half month ago Pulm underlying COPD DVT and GI prophylaxis with PPI and heparin subcu Plan: Patient will be continued on IV hydration with normal saline. Clear liquid diet. Replace magnesium. Continue symptomatic management for nausea. Continue with PPI IV twice daily. Current with home blood pressure medications medication and titrate dose. Gastroenterology service is not available at this time. General surgery was consulted and is planning for EGD and colonoscopy possibly on Monday. Current with DuoNebs and monitor respiratory status closely. Smoking cessation has been counseled extensively.
[2024-05-19 22:17] VITALS: RESP 16
[2024-05-20 06:27] LABS: Basophils # (A) 0.1 k/uL (0-0.2); Basophils % (A) 0 %; Eosinophils # (A) 0.1 k/uL (0-0.7); Eosinophils % (A) 1 %; HGB 13.5 gm/dL (13.0-17.5); Lymphocytes # (A) 1.8 k/uL (1.0-4.8); Lymphocytes % (A) 15 %; MCH 31.7 pg (25.0-35.0); MCV 95.9 fL (80.0-100.0); Mean Platelet Volume 7.8; Monocytes # (A) 0.7 k/uL (0-1.0); Monocytes % (A) 6 %; Neutrophils # (A) 8.8 k/uL (1.3-7.7); Neutrophils % (A) 76 %; Platelet Count 252 k/uL (150-450); RBC 4.27 m/uL (4.30-5.90); RDW 13.1 % (11.5-15.5); WBC 11.5 k/uL (3.8-10.6)
[2024-05-20 06:45] LABS: African American GFR (CKD) >90 (>60 ml/min/1.73 sqM); Anion Gap 7 mmol/L; Blood Urea Nitrogen 6 mg/dL (9-20); Calcium 8.8 mg/dL (8.4-10.2); Carbon Dioxide 26 mmol/L (22-30); Chloride 106 mmol/L (98-107); Glucose 84 mg/dL (74-99); Non-African American GFR(CKD) >90 (>60 ml/min/1.73 sqM); Potassium 3.6 mmol/L (3.5-5.1); Sodium 139 mmol/L (137-145)
[2024-05-20] MEDS: IV FLUID CONTINUATION 1,000 ML IV ONE (15:44)
[2024-05-20] MEDS ORDERED: LIDOCAINE 1% INJ 10MG/ML (20 ML MDV) ONE (15:46)
[2024-05-20] MEDS ORDERED: ONDANSETRON 4 MG/2 ML VIAL ONE (15:46)
[2024-05-20] MEDS ORDERED: PROPOFOL 10 MG/ML 20 ML VIAL IV ONE (15:46)
--- NOTE | 2024-05-20 15:57 | P.PN ---
Subjective Progress Note Date: 05/20/24 SURGICAL PROGRESS NOTE CHIEF COMPLAINT: Gastritis HISTORY OF PRESENT ILLNESS: Patient scheduled for EGD and colonoscopy today. No new complaints. Vital stable. Hemoglobin 13.5 PHYSICAL EXAM: VITAL SIGNS: Reviewed. GENERAL: Well-developed in no acute distress. ABDOMEN: Soft. Nondistended. Nontender. ASSESSMENT: 1. Gastritis PLAN: -Patient scheduled for EGD and colonoscopy today Physician Can Doffer note has been reviewed by physician. Signing provider agrees with the documented findings, assessment, and plan of care. Objective - Vital Signs Vital signs: Vital Signs Temp 98.1 F 05/20/24 12:41 Pulse 83 05/20/24 12:41 Resp 16 05/20/24 12:41 BP 165/73 05/20/24 12:41 Pulse Ox 97 05/20/24 12:41 FiO2 Intake & Output 05/19/24 05/20/24 05/20/24 18:59 06:59 18:59 Intake Total 5224 240 Balance 5224 240 Intake: Oral 5224 240 Other: Voiding Method Toilet # Voids 5 2 # Bowel Movements 3 4 - Labs CBC & Chem 7: 05/20/24 05:23 05/20/24 05:23 Labs: Abnormal Lab Results - Last 24 Hours (Table) 05/20/24 05/20/24 Range/Units 05:23 05:23 WBC 11.5 H (3.8-10.6) k/uL RBC 4.27 L (4.30-5.90) m/uL Neutrophils # 8.8 H (1.3-7.7) k/uL BUN 6 L (9-20) mg/dL
--- NOTE | 2024-05-20 16:12 | P.OP ---
Description of Procedure: The patient was placed on the endoscopy table in the lateral position. He received IV sedation. The gas was placed oropharynx passed in the esophagus into the stomach. Scope was placed to the pylorus. The first and second portion of the duodenum appeared normal. Scope was then brought back to the antrum this appeared mildly Flaim. A biopsy was performed. The scope was then retroflexed Becky stomach appeared normal. The GE junction was at 40 cm. The distal esophagus appeared normal. The proximal esophagus appeared normal. Scope withdrawn for the patient. Next digital rectal exam was performed. The cecum appeared normal. The ascending colon appeared normal. The transverse colon had a few scattered diverticuli. In the left colon there was a punctate polyp seen was removed with the snare. There were scattered diverticula seen in the left and sigmoid colon. In the rectum another polyp was seen and removed with a cold forcep. Scope withdrawn from patient. This was normal. The flexible colonoscope was then placed patient anus passed throughout the entire colon. The ileocecal valve was visualized.
[2024-05-21 08:05] VITALS: BP 138/72; TEMP 98.4
[2024-05-21 09:07] VITALS: PULSE 80
--- NOTE | 2024-05-21 12:35 | P.PN ---
Subjective Progress Note Date: 05/21/24 SURGICAL PROGRESS NOTE CHIEF COMPLAINT: Gastritis HISTORY OF PRESENT ILLNESS: Patient is status post EGD and colonoscopy with results reporting inflamed antrum, gastritis, colonoscopy reports of diverticu losis and removal of polyp. Patient is tolerating diet. He has been up and ambulating. Afebrile. WBC 11.5 Hgb 13.5. Patient scheduled for discharge today. PHYSICAL EXAM: VITAL SIGNS: Reviewed. GENERAL: Well-developed in no acute distress. ABDOMEN: Soft. Nondistended. Nontender. ASSESSMENT: 1. Gastritis status post EGD and colonoscopy PLAN: -Patient is stable for discharge -Agree with Nexium at discharge Physician Book Packer note has been reviewed by physician. Signing provider agrees with the documented findings, assessment, and plan of care. Objective - Vital Signs Vital signs: Vital Signs Temp 98.4 F 05/21/24 07:12 Pulse 80 05/21/24 09:07 Resp 16 05/21/24 07:12 BP 138/72 05/21/24 07:12 Pulse Ox 97 05/21/24 07:12 FiO2 Intake & Output 05/20/24 05/21/24 05/21/24 18:59 06:59 18:59 Intake Total 1979 590 480 Balance 1980 590 480 Intake: IV 100 Intake, IV Titration 600 Amount Sodium Chloride 0.9% 1, 600 000 ml @ 75 mls/hr IV . [id number] AMANDA Rx#:[id number] Oral 1280 590 480 Other: # Voids 5 2 # Bowel Movements 2 - Labs CBC & Chem 7: 05/20/24 05:23 05/20/24 05:23
--- NOTE | 2024-05-21 12:39 | P.PN ---
Subjective Progress Note Date: 05/20/24 Patient is a 63 male with a past medical history of hypertension, anxiety, history of lung cancer status post thoracoscopic surgery with right middle lobectomy and mediastinal lymph node dissection and intercostal nerve block on 01/04/2024, hyperlipidemia, history of cryptococcus meningitis as aged 11 prese nting blindness to left eye and every day smoker and history of marijuana use presents to ER with complaints of nausea and vomiting for the past 2 weeks and not improving. Patient also having loss of weight. Patient states that he is not able to eat due to significant nausea and vomiting. Denied any hematemesis. Denied any dark-colored stools. Patient states that he was seen by his PCP and was placed on antibiotics to treat for diverticulitis. He is also being continued on antiemetic medications. Denied any complaints abdominal pain. Patient does have numbness overlying the right upper chest due to prior history of nerve block. Denied any chest pain or shortness of breath. Patient has been afebrile on admission. Patient states that he lost about 50 LB's during the last 4 months. Patient states that he was seen at [facility] and was discharged recently.. Patient states that he was smoking and using marijuana to help with the pain and nausea. Quit 1 and [address]. [address] of the abdomen pelvis showed there may be a degree of gastric wall thickening. Correlate for gastritis. Chest x-ray showed COPD. No acute process seen. EKG showed sinus tachycardia. Laboratory data showed WBC 16.2 hemoglobin 16.4 and platelets 364 neutrophils 12.8 sodium 136 potassium 3.9 chloride 93 BUN 27 creatinine 1.05 and blood sugar 113 and magnesium 1.2 liver enzymes are not elevated amylase 45 lipase 38 Urinalysis is negative for infection. 05/18 Patient nausea vomiting feels better No epigastric pain or tenderness. No chest pain or dyspnea. His potassium magnesium still on the low side and this been replaced. Hemodynamically stable. WBC trending down, today 10.8. Rest of CBC, BMP and liver enzymes were unremarkable except for low potassium magnesium which are being replaced Surgery team on the case for colonoscopy/EGD on Monday Plan of care discussed with patient and staff and he is agreeable 05/19 Patient up in bed, he has no nausea vomiting today and he tolerates liquid bowel preparation as he is planned to go colonoscopy and EGD tomorrow for gastric wall thickening. No chest pain or dyspnea. 05/20/2024 Patient is currently sitting in the bed. Awake alert and oriented x 3. No complaints of nausea or vomiting. Patient is scheduled for EGD and colonoscopy today. Patient was able to tolerate bowel preparation. No complaints of chest pain or shortness of breath. Patient has been afebrile. No other acute overnight issues. Patient is being continued on Protonix. Current medications reviewed. Objective - Vital Signs Vital signs: Vital Signs Temp 98.1 F 05/20/24 12:41 Pulse 83 05/20/24 12:41 Resp 16 05/20/24 12:41 BP 165/73 05/20/24 12:41 Pulse Ox 97 05/20/24 12:41 FiO2 Intake & Output 05/19/24 05/20/24 05/20/24 18:59 06:59 18:59 Intake Total 5224 240 Balance 5224 240 Intake: Oral 5224 240 Other: Voiding Method Toilet # Voids 5 2 # Bowel Movements 3 4 - Exam PHYSICAL EXAMINATION: Patient is lying in the bed comfortably, no acute distress, awake alert and oriented.. HEENT: Normocephalic. Neck is supple. Pupils reactive. Nostrils clear. Oral cavity is moist. Neck reveals no JVD, carotid bruits, or thyromegaly. CHEST EXAMINATION: Trachea is central. Symmetrical expansion. Lung guzman clear to auscultation and percussion. CARDIAC: Normal S1, S2 with no gallops. No murmurs ABDOMEN: Soft. Bowel sounds normal. No organomegaly. No abdominal bruits. Extremities: reveal no edema. No clubbing or cyanosis Neurologically awake, alert, oriented x3 with well-coordinated movements. No focal deficits noted Skin: No rash or skin lesions. Psychiatric: Coperative. Nonsuicidal Musculoskeletal: No joint swelling or deformity. Normal range of motion. - Labs CBC & Chem 7: 05/20/24 05:23 05/20/24 05:23 Labs: Abnormal Lab Results - Last 24 Hours (Table) 05/20/24 05/20/24 Range/Units 05:23 05:23 WBC 11.5 H (3.8-10.6) k/uL RBC 4.27 L (4.30-5.90) m/uL Neutrophils # 8.8 H (1.3-7.7) k/uL BUN 6 L (9-20) mg/dL Assessment and Plan Assessment: Intractable nausea and vomiting likely due to gastritis. CT of the abdomen pelvis showed gastric wall thickening. Symptomatically improved. Hypovolemic hyponatremia. Improved. Severe-hypomagnesemia Significant weight loss. Patient states that he lost about 40 LB in the last 4 months. History of lung cancer status post right middle lobe resection and mediastinal lymph node dissection on 01/04/2024. Hypertension Hyperlipidemia Anxiety Ongoing nicotine addiction patient states he quit about 1 and half month ago Pulm underlying COPD DVT and GI prophylaxis with PPI and heparin subcu Patient will be continued on IV hydration with normal saline. Replace magnesium.. Continue symptomatic management for nausea. Continue with PPI IV twice daily. Continue current with home blood pressure medications medication and titrate dose. Gastroenterology service is not available at this time. General surgery was consulted and is planning for EGD and colonoscopy today. Patient was able to tolerate bowel prep.. Current with DuoNebs and monitor respiratory status closely. Smoking cessation has been counseled extensively. Discussed with the patient and his at bedside in detail. Time with Patient: Greater than 30
--- NOTE | 2024-05-21 19:58 | P.DS ---
Providers Date of admission: 05/17/24 08:49 Expected date of discharge: 05/21/24 Attending physician: Gerry Olivo Consults: 05/17/24 10:07 Consult Physician Urgent Consulting Provider: Christian Vu Consult Reason/Comments: gastritis, wt loss Do you want consulting provider notified?: Yes Primary care physician: [facility] Course: Patient is a 63 male with a past medical history of hypertension, anxiety, history of lung cancer status post thoracoscopic surgery with right middle lobectomy and mediastinal lymph node dissection and intercostal nerve block on 01/04/2024, hyperlipidemia, 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 Patient also having loss of weight. Patient states that he is not able to eat due to significant nausea and vomiting. Denied any hematemesis. Denied any dark-colored stools. Patient states that he was seen by his PCP and was placed on antibiotics to treat for diverticulitis. He is also being continued on antiemetic medications. Denied any complaints abdominal pain. Patient does have numbness overlying the right upper chest due to prior history of nerve block. Denied any chest pain or shortness of breath. Patient has been afebrile on admission. Patient states that he lost about 50 LB's during the last 4 months. Patient states that he was seen at [facility] and was discharged recently.. Patient states that he was smoking and using marijuana to help with the pain and nausea. Quit 1 and [address]. [address] of the abdomen pelvis showed there may be a degree of gastric wall thickening. Correlate for gastritis. Chest x-ray showed COPD. No acute process seen. EKG showed sinus tachycardia. Laboratory data showed WBC 16.2 hemoglobin 16.4 and platelets 364 neutrophils 12.8 sodium 136 potassium 3.9 chloride 93 BUN 27 creatinine 1.05 and blood sugar 113 and magnesium 1.2 liver enzymes are not elevated amylase 45 lipase 38 Urinalysis is negative for infection. 05/18 Patient nausea vomiting feels better No epigastric pain or tenderness. No chest pain or dyspnea. His potassium magnesium still on the low side and this been replaced. Hemodynamically stable. WBC trending down, today 10.8. Rest of CBC, BMP and liver enzymes were unremarkable except for low potassium magnesium which are being replaced Surgery team on the case for colonoscopy/EGD on Monday Plan of care discussed with patient and staff and he is agreeable 05/19 Patient up in bed, he has no nausea vomiting today and he tolerates liquid bowel preparation as he is planned to go colonoscopy and EGD tomorrow for gastric wall thickening. No chest pain or dyspnea. 05/20/2024 Patient is currently sitting in the bed. Awake alert and oriented x 3. No complaints of nausea or vomiting. Patient is scheduled for EGD and colonoscopy today. Patient was able to tolerate bowel preparation. No complaints of chest pain or shortness of breath. Patient has been afebrile. No other acute overnight issues. Patient is being continued on Protonix. May 21, 2024: Patient underwent EGD colonoscopy by Dr Vu. Full report in the chart. Some element of gastritis. Patient does take Nexium at home. To continue the same. Diet was discussed. Patient is states that since he had his lobectomy for his lung cancer in December he is lost significant amount of weight. He does follow-up with Dr. Menendez from oncology. He is told to follow-up in the next couple of weeks. He is also told to follow-up with GI. His diet was discussed in detail. Discussion and discharge planning more than 35 minutes On examination: VITAL SIGNS: [98.4, 80, 16, 138 x 72, 97% room air] GENERAL APPEARANCE: Sitting edge of the bed, comfortable HEENT: Normal external appearance of nose and ear. Oral cavity normal EYES: Pupils equal. Conjunctiva normal. NECK: JVD not raised. Mass not palpable. RESPIRATORY: Respiratory effort normal. Lungs decreased breath sounds CARDIOVASCULAR: First and second sounds normal. No edema. ABDOMEN: Soft. Liver and spleen not palpable. No tenderness. No mass palpable. PSYCHIATRY: Alert and oriented x3. Mood and affect normal. INVESTIGATIONS, reviewed in the clinical context: May 20: White count 1.5 hemoglobin 13.5 potassium 3.6 creatinine 0.75 EGD: Colonoscopy: Mild gastritis. Few scattered diverticuli. Left colon polyp removed. CT scan abdomen pelvis: May be a degree of gastric wall thickening. Assessment: Intractable nausea and vomiting likely due to gastritis. And possible diet contribution. Diet discussed. PPI. Hypovolemic hyponatremia. Improved. Severe-hypomagnesemia Significant weight loss. Patient states that he lost about 40 LB in the last 4 months.-Follow-up with Dr. Menendez oncologist. Follow-up with GI Dr. Yousif Bailon History of lung cancer status post right middle lobe resection and mediastinal lymph node dissection on 01/04/2024. Hypertension Hyperlipidemia Anxiety Ongoing nicotine addiction patient states he quit about 1 and half month ago COPD Disposition: Home Follow-up with: [facility] Dr. Thelma Menendez Plan - Discharge Summary Discharge Rx Participant: No New Discharge Prescriptions: New Prochlorperazine [Compazine] 5 mg PO Q8HR PRN #30 tab PRN Reason: Nausea Esomeprazole Magnesium [NexIUM] 20 mg PO HS #30 cap Continue carisoprodoL [Soma] 350 mg PO TID PRN PRN Reason: Muscle Spasm ALPRAZolam 1 mg PO TID PRN PRN Reason: Anxiety hydroCHLOROthiazide 25 mg PO DAILY Aspirin EC [Ecotrin Low Dose] 81 mg PO DAILY amLODIPine [Norvasc] 5 mg PO BID Ezetimibe [Zetia] 10 mg PO DAILY carvediloL [Coreg] 6.25 mg PO BID Discontinued Ondansetron Odt [Zofran Odt] 4 mg PO Q8HR PRN #10 tab PRN Reason: Nausea ondansetron HCL [Zofran] 8 mg PO Q8HR PRN PRN Reason: Nausea Discharge Medication List ALPRAZolam 1 mg PO TID PRN 01/04/17 [History] carisoprodoL [Soma] 350 mg PO TID PRN 01/04/17 [History] Aspirin EC [Ecotrin Low Dose] 81 mg PO DAILY 05/17/24 [History] Ezetimibe [Zetia] 10 mg PO DAILY 05/17/24 [History] amLODIPine [Norvasc] 5 mg PO BID 05/17/24 [History] carvediloL [Coreg] 6.25 mg PO BID 05/17/24 [History] hydroCHLOROthiazide 25 mg PO DAILY 05/17/24 [History] Esomeprazole Magnesium [NexIUM] 20 mg PO HS #30 cap 05/21/24 [Rx] Prochlorperazine [Compazine] 5 mg PO Q8HR PRN #30 tab 05/21/24 [Rx] Follow up Appointment(s)/Referral(s): Orlin Albrecht DO [Primary Care Provider] - 1-2 days (the office will call with a follow up appointment. Please discuss a referral to a hospital monitor.) Daisy Menendez MD [STAFF PHYSICIAN] - 1 Week (the office will call to schedule a follow up appointment. ) Patient Instructions/Handouts: Prochlorperazine (By mouth), Esomeprazole (By mouth) Discharge Disposition: HOME SELF-CARE
== END 2024-05-21 11:26 | disposition home or self-care (01) | DRG 392 ==
LOC: EC 04:07 → 5NMEDONC 08:49
PROVIDERS: ADMIT Hospitalist; ATTEND Hospitalist
PROC: 0DBP8ZX Excision of Rectum, Via Natural or Artificial Opening Endoscopic, Diagnostic (ICD-10-PCS; 2024-05-20)
PROC: 0DB78ZX Excision of Stomach, Pylorus, Via Natural or Artificial Opening Endoscopic, Diagnostic (ICD-10-PCS; principal; 2024-05-20 15:15)
PROC: 0DBG8ZX Excision of Left Large Intestine, Via Natural or Artificial Opening Endoscopic, Diagnostic (ICD-10-PCS; 2024-05-20 15:15)
PROC: 0DBN8ZX Excision of Sigmoid Colon, Via Natural or Artificial Opening Endoscopic, Diagnostic (ICD-10-PCS; 2024-05-20 15:15)
DX: K29.70 Gastritis, unspecified, without bleeding (principal); E87.1 Hypo-osmolality and hyponatremia; J44.9 Chronic obstructive pulmonary disease, unspecified; H54.62 Unqualified visual loss, left eye, normal vision right eye; F41.9 Anxiety disorder, unspecified; F17.210 Nicotine dependence, cigarettes, uncomplicated; E78.5 Hyperlipidemia, unspecified; K57.90 Diverticulosis of intestine, part unspecified, without perforation or abscess without bleeding; I10 Essential (primary) hypertension; K63.5 Polyp of colon; E86.1 Hypovolemia; E83.42 Hypomagnesemia; Z79.82 Long term (current) use of aspirin; Z85.118 Personal history of other malignant neoplasm of bronchus and lung; Z86.0100 Personal history of colon polyps, unspecified; Z88.2 Allergy status to sulfonamides; Z79.899 Other long term (current) drug therapy; Z87.19 Personal history of other diseases of the digestive system; R00.0 Tachycardia, unspecified
CPT/HCPCS: 36415; 43239; 45380; 45385; 71046; 74177; 80048; 80053; 81001; 82150; 83605; 83690; 83735; 84100; 84484; 85025; 88305; 94640; 96365; 96366; 96375; 99285

== ENCOUNTER 2024-06-02 13:10 | Observation (INO) | payer OTHER ==
--- NOTE | 2024-06-02 13:42 | ED ---
General Adult HPI - General Chief complaint: Abdominal Pain Stated complaint: vomiting Time Seen by Provider: 06/02/24 13:16 Source: patient Mode of arrival: ambulatory Limitations: no limitations - History of Present Illness Initial comments: Dictation was produced using onkea dictation software. please excuse any grammatical, word or spelling errors. Chief Complaint: 63-year-old male with nausea and vomiting History of Present Illness: 63-year-old male presents with nausea and vomiting. He was seen here late last month where he was admitted for several days. States that at the time of discharge his symptoms improved. He has been at home re covering. Today his symptoms came back. He states that he was so nauseated that he was unable to keep his nausea medications down. Patient had multiple bouts of nonbilious nonbloody emesis. His last admission he had scopes done which revealed no obvious abnormalities. Printed discharge summary symptoms are likely secondary to gastritis. The ROS documented in this emergency department record has been reviewed and confirmed by me. Those systems with pertinent positive or negative responses have been documented in the HPI. All other systems are other negative and/or noncontributory. - Related Data Home Medications Medication Instructions Recorded Confirmed ALPRAZolam 1 mg PO TID PRN 01/04/17 06/02/24 carisoprodoL [Soma] 350 mg PO TID PRN 01/04/17 06/02/24 Aspirin EC [Ecotrin Low Dose] 81 mg PO DAILY 05/17/24 06/02/24 Ezetimibe [Zetia] 10 mg PO DAILY 05/17/24 06/02/24 amLODIPine [Norvasc] 5 mg PO BID 05/17/24 06/02/24 carvediloL [Coreg] 6.25 mg PO BID 05/17/24 06/02/24 hydroCHLOROthiazide 25 mg PO DAILY 05/17/24 06/02/24 Losartan Potassium 100 mg PO DAILY 06/02/24 06/02/24 Previous Rx's Medication Instructions Recorded Esomeprazole Magnesium [NexIUM] 20 mg PO HS #30 cap 05/21/24 Prochlorperazine [Compazine] 5 mg PO Q8HR PRN #30 tab 05/21/24 Allergies Allergy/AdvReac Type Severity Reaction Status Date / Time Sulfa (Sulfonamide Allergy Swelling Verified 06/02/24 13:14 Antibiotics) Review of Systems ROS Statement: Those systems with pertinent positive or pertinent negative responses have been documented in the HPI. ROS Other: All systems not noted in ROS Statement are negative. 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 RECENT POSITIVE HEMOCCULT TEST, right lung cancer History of Any Multi-Drug Resistant Organisms: None Reported Past Surgical History: Hernia Repair, Orthopedic Surgery Additional Past Surgical History / Comment(s): right cyst removed from chest, left knee tendon repair, colonoscopy Past Anesthesia/Blood Transfusion Reactions: Postoperative Nausea & Vomiting (PONV) Additional Past Anesthesia/Blood Transfusion Reaction / Comment(s): no blood transfusion Past Psychological History: Anxiety Smoking Status: Current every day smoker Past Alcohol Use History: None Reported Past Drug Use History: None Reported - Past Family History Father Family Medical History: Cancer Additional Family Medical History / Comment(s): prostate/bone General Exam - General Exam Comments Initial Comments: PHYSICAL EXAM: General Impression: Alert and oriented x3, not in acute distress HEENT: Normocephalic atraumatic, extra-ocular movements intact, pupils equal and reactive to light bilaterally, mucous membranes moist. Cardiovascular: Heart regular rate and rhythm Chest: Able to complete full sentences, no retractions, no tachypnea Abdomen: abdomen soft, non-tender, non-distended, no organomegaly Musculoskeletal: Pulses present and equal in all extremities, no peripheral edema Motor: no focal deficits noted Neurological: CN II-XII grossly intact, no focal motor or sensory deficits noted Skin: Intact with no visualized rashes Psych: Normal affect and mood Limitations: no limitations Course Vital Signs 06/02/24 13:12 Temperature 97.8 F Pulse Rate 93 Respiratory 20 Rate Blood Pressure 136/70 O2 Sat by Pulse 98 Oximetry EKG Findings - EKG Comments: EKG Findings:: My EKG interpretation: Ventricular rate 102, sinus tachycardia, MA 180, QRS 1 2, QTc 414. No MA prolongation, no QTC prolongation, no ST or T- wave changes noted. Overall, this EKG is unremarkable Medical Decision Making - Medical Decision Making Was pt. sent in by a medical professional or institution (, PA, [facility] [employer], urgent care, hospital, or fpc...) When possible be specific @ -No Did you speak to anyone other than the patient for history (EMS, parent, family, police, friend...)? What history was obtained from this source @ -No Did you review nursing and triage notes (agree or disagree)? Why? @ -I reviewed and agree with nursing and triage notes Were old charts reviewed (outside hosp., previous admission, EMS record, old EKG, old radiological studies, urgent care reports/EKG's, fpc records)? Report findings @ -No old charts were reviewed Differential Diagnosis (chest pain, altered mental status, abdominal pain women, abdominal pain men, vaginal bleeding, musculoskeletal, weakness, fever, dyspnea, syncope, headache, dizziness, GI bleed, back pain, seizure, CVA, palpatations, mental health)? @ -Differential Abdominal Pain Men: Appendicitis, cholecystitis, diverticulosis, ischemic bowel, pancreatitis, hepatitis, UTI, gastroenteritis, AAA, incarcerated hernia, bowel obstruction, constipation, inflammatory bowel, hepatitis, peptic ulcer disease, splenic infarction, perforated viscus, testicular torsion, this is not meant to be an all-inclusive list EKG interpreted by me (3pts min.). @ -Above X-rays interpreted by me (1pt min.). @ -None done CT interpreted by me (1pt min.). @ -None done U/S interpreted by me (1pt. min.). @ -None done What testing was considered but not performed or refused? (CT, X-rays, U/S, labs)? Why? @ -None What meds were considered but not given or refused? Why? @ -None Was smoking cessation discussed for >3mins.? @ -No Were there social determinants of health that impacted care today? How? (Homelessness, low income, unemployed, alcoholism, drug addiction, transporta tion, low edu. Level, literacy, decrease access to med. care, usp, rehab)? @ -No Was there de-escalation of care discussed even if they declined (Discuss DNR or withdrawal of care, Hospice)? DNR status @ -No What co-morbidities impacted this encounter? (DM, HTN, Smoking, COPD, CAD, Cancer, CVA, ARF, Chemo, Hep., AIDS, mental health diagnosis, sleep apnea, morbid obesity)? @ -None Was patient admitted / discharged? Hospital course, mention meds given and route, prescriptions, significant lab abnormalities, going to OR and other pertinent info. @ -63-year-old male presents emergency department with nausea vomiting. His emesis nonbilious nonbloody. Vital signs upon arrival are within acceptable limits. Laboratory evaluation obtained. Leukocytosis of 18.3 of unclear etiology. Level is significantly decreased at 1.0. Rest of labs are unremarkable. Patient given IV magnesium. Given patient's degree of hypomagnesemia he will be admitted observation with parenteral replacement. F urthermore he came to the treated for intractable vomiting poor oral intake. Case discussed with hospitalist for admission Did you discuss the management of the patient with other professionals (prof darby i.e. , PA, [employer], lab, RT, psych nurse, social security benefits interviewer, classifier tender, teacher, juvenile corrections officer, manager case management)? Give summary @ -See above Was critical care preformed (if so, how long)? @ -No Undiagnosed new problem with uncertain prognosis? @ -No Drug Therapy requiring intensive monitoring for toxicity (Heparin, Nitro, Insulin, Cardizem)? @ -No Were any procedures done? @ -No Diagnosis/symptom? Acute, or Chronic, or Acute on Chronic? Uncomplicated (without systemic symptoms) or Complicated (systemic symptoms)? @ -Hypomagnesemia, intractable vomiting Side effects of treatment? @ -No Exacerbation, Progression, or Severe Exacerbation? @ -No Poses a threat to life or bodily function? How? (Chest pain, USA, DE, pneumonia, PE, COPD, DKA, ARF, appy, cholecystitis, CVA, Diverticulitis, Homicidal, Suicidal, threat to staff... and all critical care pts) @ -yes - Lab Data Result diagrams: 06/02/24 13:29 06/02/24 13:29 Lab Results 06/02/24 06/02/24 06/02/24 Range/Units 13:29 13:29 13:29 WBC 17.3 H (3.8-10.6) k/uL RBC 4.98 (4.30-5.90) m/uL Hgb 15.9 (13.0-17.5) gm/dL Hct 46.0 (39.0-53.0) % MCV 92.4 (80.0-100.0) fL MCH 31.9 (25.0-35.0) pg MCHC 34.5 (31.0-37.0) g/dL RDW 13.1 (11.5-15.5) % Plt Count 378 (150-450) k/uL MPV 7.8 Neutrophils % 86 % Lymphocytes % 10 % Monocytes % 3 % Eosinophils % 1 % Basophils % 0 % Neutrophils # 14.9 H (1.3-7.7) k/uL Lymphocytes # 1.7 (1.0-4.8) k/uL Monocytes # 0.4 (0-1.0) k/uL Eosinophils # 0.2 (0-0.7) k/uL Basophils # 0.1 (0-0.2) k/uL Sodium 138 (137-145) mmol/L Potassium 3.7 (3.5-5.1) mmol/L Chloride 100 (98-107) mmol/L Carbon Dioxide 28 (22-30) mmol/L Anion Gap 10 mmol/L BUN 20 (9-20) mg/dL Creatinine 0.95 (0.66-1.25) mg/dL Est GFR (CKD-EPI)AfAm >90 (>60 ml/min/1.73 sqM) Est GFR (CKD-EPI)NonAf 85 (>60 ml/min/1.73 sqM) Glucose 143 H (74-99) mg/dL Calcium 9.9 (8.4-10.2) mg/dL Magnesium 1.0 L (1.6-2.3) mg/dL Total Bilirubin 0.5 (0.2-1.3) mg/dL AST 21 (17-59) U/L ALT 20 (4-49) U/L Alkaline Phosphatase 91 (38-126) U/L Total Protein 7.6 (6.3-8.2) g/dL Albumin 4.7 (3.5-5.0) g/dL Lipase 41 (23-300) U/L Disposition Clinical Impression: Intractable vomiting Disposition: ADMITTED IP TO THIS [facility] Condition: Fair Referrals: Orlin Albrecht DO [Primary Care Provider] - 1-2 days Decision Time: 15:15
[2024-06-02] MEDS: ONDANSETRON 4 MG/2 ML VIAL IVP STA (13:43)
[2024-06-02] MEDS: SODIUM CHLORIDE 0.9% 1,000 ML IV STA (13:43)
[2024-06-02 13:46] LABS: Basophils # (A) 0.1 k/uL (0-0.2); Basophils % (A) 0 %; Eosinophils # (A) 0.2 k/uL (0-0.7); Eosinophils % (A) 1 %; HGB 15.9 gm/dL (13.0-17.5); Lymphocytes # (A) 1.7 k/uL (1.0-4.8); Lymphocytes % (A) 10 %; MCH 31.9 pg (25.0-35.0); MCHC 34.5 g/dL (31.0-37.0); MCV 92.4 fL (80.0-100.0); Mean Platelet Volume 7.8; Monocytes # (A) 0.4 k/uL (0-1.0); Monocytes % (A) 3 %; Neutrophils # (A) 14.9 k/uL (1.3-7.7); Neutrophils % (A) 86 %; Platelet Count 378 k/uL (150-450); RBC 4.98 m/uL (4.30-5.90); RDW 13.1 % (11.5-15.5); WBC 17.3 k/uL (3.8-10.6)
[2024-06-02] MEDS: PANTOPRAZOLE 40 MG/10 ML VIAL IVP STA (13:49)
[2024-06-02] MEDS: MAG HYDROX/AL HYDROX/SIMETH 30 ML, HYOSCYAMINE ELIXIR 10 ML, LIDOCAINE VISCOUS 2% 10 ML PO STA (13:49)
[2024-06-02 13:54] LABS: ALT 20 U/L (4-49); AST 21 U/L (17-59); African American GFR (CKD) >90 (>60 ml/min/1.73 sqM); Albumin 4.7 g/dL (3.5-5.0); Alkaline Phosphatase 91 U/L (38-126); Anion Gap 10 mmol/L; Blood Urea Nitrogen 20 mg/dL (9-20); Calcium 9.9 mg/dL (8.4-10.2); Carbon Dioxide 28 mmol/L (22-30); Chloride 100 mmol/L (98-107); Glucose 143 mg/dL (74-99); Lipase 41 U/L (23-300); Non-African American GFR(CKD) 85 (>60 ml/min/1.73 sqM); Potassium 3.7 mmol/L (3.5-5.1); Sodium 138 mmol/L (137-145); Total Bilirubin 0.5 mg/dL (0.2-1.3); Total Protein 7.6 g/dL (6.3-8.2)
[2024-06-02] MEDS ORDERED: NALOXONE 0.4 MG/ML 1 ML VIAL IV PRN (15:11)
[2024-06-02] MEDS: MAGNESIUM SULFATE-D5W PMX 1 GM in DEXTROSE/WATER 1 100ML.BAG IVPB SCH (15:15)
[2024-06-02] MEDS: SODIUM CHLORIDE 0.9% 1,000 ML IV SCH (15:38)
[2024-06-02] MEDS: LACTATED RINGERS 1,000 ML IV ONE (15:39)
[2024-06-02] MEDS: ONDANSETRON 4 MG/2 ML VIAL IVP PRN (17:52)
[2024-06-02] MEDS ORDERED: carisoprodoL 350 MG TAB PO PRN (21:54)
--- NOTE | 2024-06-02 21:59 | P.HPIM ---
History of Present Illness H&P Date: 06/02/24 Chief Complaint: Nausea vomiting Patient is a 63 yo with a past medical history of hypertension, anxiety, history of lung cancer status post thoracoscopic surgery with right middle lobectomy and mediastinal lymph node dissection and intercostal nerve block on 01/04/2024, hype rlipidemia, history of cryptococcus meningitis as aged 11 Patient states that he lost about 50 LB's during the last 4 months. Patient states that he was seen at [facility] and was discharged recently.. Patient states that he was smoking and using marijuana to help with the pain and nausea. Quit 1 and half month ago. Recent CT of the abdomen pelvis showed there may be a degree of gastric wall thickening. Correlate for gastritis. May 21, 2024: Patient underwent EGD colonoscopy by Dr Vu. Full report in the chart. Some element of gastritis. Patient does take Nexium at home. To continue the same. Diet was discussed. Patient is states that since he had his lobectomy for his lung cancer in December he is lost significant amount of weight. Recently admitted to the hospital for nausea vomiting. Workup as above. Patient due to see Dr. Menendez outpatient and Dr. Yousif Bailon. Patient also has a follow-up at [facility]. Through his family doctor. This morning patient started having nausea vomiting. Dry heaving. Started around 5 AM. Prior to that he was doing fine. No abdominal pain. No fever no chills. He last vomited about 2 hours ago. His bowel movement had been fine. Review of systems: GEN.: Tired EYES: None HEENT: None NECK: None RESPIRATORY: None CARDIOVASCULAR: None GASTROINTESTINAL: As above GENITOURINARY: None MUSCULOSKELETAL: None LYMPHATICS: None HEMATOLOGICAL: None PSYCHIATRY: None NEUROLOGICAL: None. Social history: Smoked 1.5 packs a day since age 12. Her January of this she has cut back to 1 to 2 cigarettes a day. Does do some marijuana. Physical examination: VITAL SIGNS: 97.9, 107, 18, 116 x 91, 98% room air GENERAL: BMI 23.7, sitting in bed awake not in distress. EYES: Pupils equal. Conjunctiva phu l. HEENT: External appearance of nose and ears normal, oral cavity grossly normal. NECK: JVD not raised; masses not palpable. HEART: First and second heart sounds are normal; no edema. LUNGS:[ Respiratory rate normal; diminished breath sounds. ABDOMEN: Soft, nontender, liver spleen not palpable, no masses palpable. PSYCH: Alert and oriented x3; mood and affect phu l. MUSCULOSKELETAL:No Clubbing/cyanosis;muscles-grossly intact NEUROLOGICAL: Cranial nerves grossly intact; no facial asymmetry, power and sensation grossly intact. LYMPHATICS: No lymph nodes palpable in the axilla and neck INVESTIGATIONS, reviewed in the clinical context: June 02: White count 17.3 hemoglobin 15.9 platelets 378 sodium 138 potassium 3.7 creatinine 0.95 magnesium 1.0 Recent workup EGD: Colonoscopy: Mild gastritis. Few scattered diverticuli. Left colon polyp removed. CT scan abdomen pelvis: May be a degree of gastric wall thickening. Assessment plan: -Severe nausea and vomiting this morning. Patient recently underwent EGD colonoscopy with Dr Vu. Found to have mild gastritis. Was discharged on PPI. Was doing well up till this morning. Patient been eating rather healthy at home.. Patient due to see Dr. Yousif Bailon outpatient -Clinical dehydration from nausea vomiting IV fluids -Severe-hypomagnesemia, from nausea vomiting Replace -Significant weight loss. Patient states that he lost about 40 LB in the last 4 months.- Due to follow-up with Dr. Menendez oncologist. Follow-up with GI Dr. Yousif Bailon -History of lung cancer status post right middle lobe resection and mediastinal lymph node dissection on 01/04/2024. Patient has a follow-up appointment at [facility] -Essential hypertension Losartan. Amlodipine. Coreg. -Hyperlipidemia Zetia -Anxiety Xanax as needed -COPD Albuterol as needed Discussed with patient. Full liquid diet. Magnesium supplement. Resume home medications. 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 RECENT POSITIVE HEMOCCULT TEST, right lung cancer History of Any Multi-Drug Resistant Organisms: None Reported Past Surgical History: Hernia Repair, Orthopedic Surgery Additional Past Surgical History / Comment(s): right cyst removed from chest, left knee tendon repair, colonoscopy Past Anesthesia/Blood Transfusion Reactions: Postoperative Nausea & Vomiting (PONV) Additional Past Anesthesia/Blood Transfusion Reaction / Comment(s): no blood t ransfusion Past Psychological History: Anxiety Smoking Status: Current every day smoker Past Alcohol Use History: None Reported Additional Past Alcohol Use History / Comment(s): HAS SMOKED 1.5 PPD SINCE AGE 12 -since January 2024 has been smoking only 1-2 cigarettes a day Past Drug Use History: None Reported Additional Drug Use History / Comment(s): SMOKES 1/2 -1 JOINT EVERY NIGHT - Past Family History Father Family Medical History: Cancer Additional Family Medical History / Comment(s): prostate/bone Medications and Allergies Home Medications Medication Instructions Recorded Confirmed Type ALPRAZolam 1 mg PO TID PRN 01/04/17 06/02/24 History carisoprodoL [Soma] 350 mg PO TID PRN 01/04/17 06/02/24 History Aspirin EC [Ecotrin Low Dose] 81 mg PO DAILY 05/17/24 06/02/24 History Ezetimibe [Zetia] 10 mg PO DAILY 05/17/24 06/02/24 History amLODIPine [Norvasc] 5 mg PO BID 05/17/24 06/02/24 History carvediloL [Coreg] 6.25 mg PO BID 05/17/24 06/02/24 History hydroCHLOROthiazide 25 mg PO DAILY 05/17/24 06/02/24 History Esomeprazole Magnesium [NexIUM] 20 mg PO HS #30 cap 05/21/24 06/02/24 Rx Prochlorperazine [Compazine] 5 mg PO Q8HR PRN #30 tab 05/21/24 06/02/24 Rx Losartan Potassium 100 mg PO DAILY 06/02/24 06/02/24 History Allergies Allergy/AdvReac Type Severity Reaction Status Date / Time Sulfa (Sulfonamide Allergy Swelling Verified 06/02/24 13:14 Antibiotics) Physical Exam Vitals: Vital Signs Temp Pulse Pulse Resp BP BP Pulse Ox 06/02/24 20:00 97.9 F 107 H 18 168/91 98 06/02/24 18:27 76 16 165/91 97 06/02/24 13:12 97.8 F 93 20 136/70 98 Intake and Output 06/02/24 06/02/24 06/02/24 06:59 14:59 22:59 Intake Total 200 Balance 200 Intake: Oral 200 Other: Weight 79.379 kg 79.379 kg Results CBC & Chem 7: 06/02/24 13:29 06/02/24 13:29 Labs: Abnormal Lab Results - Last 24 Hours (Table) 06/02/24 06/02/24 06/02/24 Range/Units 13:29 13:29 13:29 WBC 17.3 H (3.8-10.6) k/uL Neutrophils # 14.9 H (1.3-7.7) k/uL Glucose 143 H (74-99) mg/dL Magnesium 1.0 L (1.6-2.3) mg/dL Thrombosis Risk Factor Assmnt - Choose All That Apply Each Risk Factor Represents 2 Points: Age 61-74 years Thrombosis Risk Factor Assessment Total Risk Factor Score: 2 Thrombosis Risk Factor Assessment Level: Low Risk
[2024-06-02] MEDS: ENOXAPARIN 40 MG/0.4 ML SYRINGE SQ SCH (22:36)
[2024-06-02] MEDS: amLODIPine 5 MG TAB PO SCH (22:36)
[2024-06-02] MEDS: PANTOPRAZOLE 40 MG TABLET PO SCH (22:36)
[2024-06-02] MEDS: LACTATED RINGERS 1,000 ML IV SCH (22:36)
[2024-06-02] MEDS: carvediloL 6.25 MG TAB PO SCH (22:36)
[2024-06-02] MEDS: MAGNESIUM OXIDE 400 MG TAB PO SCH (22:36)
[2024-06-03] MEDS: ALPRAZolam 1 MG TAB PO PRN (01:14)
[2024-06-03 06:33] LABS: African American GFR (CKD) >90 (>60 ml/min/1.73 sqM); Anion Gap 5 mmol/L; Blood Urea Nitrogen 14 mg/dL (9-20); Calcium 8.9 mg/dL (8.4-10.2); Carbon Dioxide 29 mmol/L (22-30); Chloride 101 mmol/L (98-107); Glucose 107 mg/dL (74-99); Magnesium 1.3 mg/dL (1.6-2.3); Non-African American GFR(CKD) >90 (>60 ml/min/1.73 sqM); Potassium 3.3 mmol/L (3.5-5.1); Sodium 135 mmol/L (137-145)
[2024-06-03 07:37] VITALS: BP 105/65; PULSE 80; RESP 17; TEMP 98.3
[2024-06-03] MEDS: EZETIMIBE 10 MG TAB PO SCH (08:58)
[2024-06-03] MEDS: ASPIRIN 81 MG PO SCH (08:58)
[2024-06-03] MEDS: LOSARTAN 50 MG TAB PO SCH (08:58)
[2024-06-03] MEDS: POTASSIUM CHLORIDE ER 20 MEQ TAB.ER PO STA (10:53)
--- NOTE | 2024-06-03 19:30 | P.DS ---
Providers Date of admission: 06/02/24 15:11 Expected date of discharge: 06/03/24 Attending physician: Gerry Olivo Primary care physician: [facility] Course: Chief Complaint: Nausea vomiting Patient is a 63 yo with a past medical history of hypertension, anxiety, history of lung cancer status post thoracoscopic surgery with right middle lobectomy and mediastinal lymph node dissection and intercostal nerve block on 01/04/2024, hyperlipidemia, history of cryptococcus meningitis as aged 11 Patient states that he lost about 50 LB's during the last 4 months. Patient states that he was seen at [facility] and was discharged recently.. Patient states that he was smoking and using marijuana to help with the pain and nausea. Quit 1 and half month ago. Recent CT of the abdomen pelvis showed there may be a degree of gastric wall thickening. Correlate for gastritis. May 21, 2024: Patient underwent EGD colonoscopy by Dr Vu. Full report in the chart. Some element of gastritis. Patient does take Nexium at home. To continue the same. Diet was discussed. Patient is states that since he had his lobectomy for his lung cancer in December he is lost significant amount of weight. Recently admitted to the hospital for nausea vomiting. Workup as above. Patient due to see Dr. Menendez outpatient and Dr. Yousif Bailon. Patient also has a follow-up at [facility]. Through his family doctor. This morning patient started having nausea vomiting. Dry heaving. Started around 5 AM. Prior to that he was doing fine. No abdominal pain. No fever no chills. He last vomited about 2 hours ago. His bowel movement had been fine. June 03, 2024: Patient did tolerate his diet. No nausea vomiting. Patient has an appointment to follow-up with Dr. Menendez from oncology, Dr. Yousif Bailon from GI, and also at [facility] with the lung specialist. Questions answered. Potassium replaced Social history: Smoked 1.5 packs a day since age 12. Her January of this she has cut back to 1 to 2 cigarettes a day. Does do some marijuana. Physical examination: VITAL SIGNS: 98.3, 80, 17, 105/65, 97% room air GENERAL: Sitting on bed, looking well comfortable EYES: Pupils equal. Conjunctiva phu l. HEENT: External appearance of nose and ears normal, oral cavity grossly normal. NECK: JVD not raised; masses not palpable. HEART: First and second heart sounds are normal; no edema. LUNGS:[ Respiratory rate normal; diminished breath sounds. ABDOMEN: Soft, nontender, liver spleen not palpable, no masses palpable. PSYCH: Alert and oriented x3; mood and affect phu l. MUSCULOSKELETAL:No Clubbing/cyanosis;muscles-grossly intact Daily INVESTIGATIONS, reviewed in the clinical context: June 03: Potassium 3.3 creatinine 0.84 June 02: White count 17.3 hemoglobin 15.9 platelets 378 sodium 138 potassium 3.7 creatinine 0.95 magnesium 1.0 Recent workup EGD: Colonoscopy: Mild gastritis. Few scattered diverticuli. Left colon polyp removed. CT scan abdomen pelvis: May be a degree of gastric wall thickening. Assessment plan: -Severe nausea and vomiting probably some flareup of gastritis.: Resolved Patient recently underwent EGD colonoscopy with Dr Vu. Found to have mild gastritis. Was discharged on PPI. Was doing well up till this morning. Patient been eating rather healthy at home.. Patient due to see Dr. Yousif Bailon outpatient -Clinical dehydration from nausea vomiting: Resolved IV fluids -Severe-hypomagnesemia, from nausea vomiting: Better Replace -Significant weight loss. Patient states that he lost about 40 LB in the last 4 months.- Due to follow-up with Dr. Menendez oncologist. Follow-up with GI Dr. Yousif Bailon -History of lung cancer status post right middle lobe resection and mediastinal lymph node dissection on 01/04/2024. Patient has a follow-up appointment at [facility] -Essential hypertension Losartan. Amlodipine. Coreg. 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 RECENT POSITIVE HEMOCCULT TEST, right lung cancer History of Any Multi-Drug Resistant Organisms: None Reported Past Surgical History: Hernia Repair, Orthopedic Surgery Additional Past Surgical History / Comment(s): right cyst removed from chest, left knee tendon repair, colonoscopy Past Anesthesia/Blood Transfusion Reactions: Postoperative Nausea & Vomiting (PONV) Additional Past Anesthesia/Blood Transfusion Reaction / Comment(s): no blood transfusion Past Psychological History: Anxiety Smoking Status: Current every day smoker Past Alcohol Use History: None Reported Additional Past Alcohol Use History / Comment(s): HAS SMOKED 1.5 PPD SINCE AGE 12 -since January 2024 has been smoking only 1-2 cigarettes a day Past Drug Use History: None Reported Additional Drug Use History / Comment(s): SMOKES 1/2 -1 JOINT EVERY NIGHT Plan - Discharge Summary Discharge Rx Participant: No New Discharge Prescriptions: New Magnesium Oxide [Mag-Ox] 400 mg PO TID #12 tab Continue carisoprodoL [Soma] 350 mg PO TID PRN PRN Reason: Muscle Spasm ALPRAZolam 1 mg PO TID PRN PRN Reason: Anxiety Aspirin EC [Ecotrin Low Dose] 81 mg PO DAILY Losartan Potassium 100 mg PO DAILY amLODIPine [Norvasc] 5 mg PO BID Ezetimibe [Zetia] 10 mg PO DAILY carvediloL [Coreg] 6.25 mg PO BID Prochlorperazine [Compazine] 5 mg PO Q8HR PRN #30 tab PRN Reason: Nausea Esomeprazole Magnesium [NexIUM] 20 mg PO HS #30 cap Discontinued hydroCHLOROthiazide 25 mg PO DAILY Discharge Medication List ALPRAZolam 1 mg PO TID PRN 01/04/17 [History] carisoprodoL [Soma] 350 mg PO TID PRN 01/04/17 [History] Aspirin EC [Ecotrin Low Dose] 81 mg PO DAILY 05/17/24 [History] Ezetimibe [Zetia] 10 mg PO DAILY 05/17/24 [History] amLODIPine [Norvasc] 5 mg PO BID 05/17/24 [History] carvediloL [Coreg] 6.25 mg PO BID 05/17/24 [History] Esomeprazole Magnesium [NexIUM] 20 mg PO HS #30 cap 05/21/24 [Rx] Prochlorperazine [Compazine] 5 mg PO Q8HR PRN #30 tab 05/21/24 [Rx] Losartan Potassium 100 mg PO DAILY 06/02/24 [History] Magnesium Oxide [Mag-Ox] 400 mg PO TID #12 tab 06/03/24 [Rx] Follow up Appointment(s)/Referral(s): Orlin Albrecht DO [Primary Care Provider] - 1-2 days Discharge Disposition: HOME SELF-CARE
== END 2024-06-03 11:50 | disposition home or self-care (01) ==
LOC: EC 13:10 → 6NMEDSUR 15:11
PROVIDERS: ADMIT Hospitalist; ATTEND Hospitalist
DX: K29.70 Gastritis, unspecified, without bleeding (principal); E83.42 Hypomagnesemia; E86.0 Dehydration; E78.5 Hyperlipidemia, unspecified; J44.9 Chronic obstructive pulmonary disease, unspecified; I10 Essential (primary) hypertension; F41.9 Anxiety disorder, unspecified; F17.210 Nicotine dependence, cigarettes, uncomplicated; R63.4 Abnormal weight loss; Z79.82 Long term (current) use of aspirin; Z79.899 Other long term (current) drug therapy; Z86.19 Personal history of other infectious and parasitic diseases; Z85.118 Personal history of other malignant neoplasm of bronchus and lung; Z88.2 Allergy status to sulfonamides; Z90.2 Acquired absence of lung [part of]
CPT/HCPCS: 96372 ×2; 96376; 96361; 96365; 96366; 96375; 99285; 36415; 93005; 80053; 80048; 83690; 83735 ×2; 85025; G0378 ×2; J2405; J1650 ×2; J3475; J2470

== ENCOUNTER → 2025-02-14 | Outpatient (CLI) | payer MEDICARE, OTHER ==
[2025-02-14 15:39] LABS: INR 0.9 (<1.2); Partial Thromboplastin Time 24.7 sec (22.0-30.0); Prothrombin Time 10.5 sec (10.0-12.5)
[2025-02-14 16:01] LABS: Bilirubin,Urine Negative (Negative); Blood,Urine Negative (Negative); Color,Urine Colorless; Glucose,Urine (UA) Negative (Negative); Ketones,Urine Negative (Negative); Leukocyte Esterase,Urine Negative (Negative); Nitrite,Urine Negative (Negative); PH, Urine 6.5 (5.0-8.0); Protein,Urine Negative (Negative); Specific Gravity,Urine 1.008 (1.001-1.035); Urobilinogen,Urine <2.0 mg/dL (<2.0)
[2025-02-15 02:06] LABS: HCT 48.3 % (39.6-50.0); HGB 15.4 g/dL (13.0-17.0); MCH 31.7 pg (27.0-32.0); MCHC 31.9 g/dL (32.0-37.0); MCV 99.4 FL (80.0-97.0); NRBC Per 100 WBC 0 X 10*3/uL (0.00-0.01); Platelet Count 372 X 10*3/uL (140-440); RBC 4.86 X 10*6/uL (4.40-5.60); RDW 13.1 % (11.5-14.5); WBC 8.52 X 10*3/uL (4.50-10.00)
[2025-02-15 02:08] LABS: BUN/Creat Ratio 12.18 Ratio (12.00-20.00); Blood Urea Nitrogen 13.4 mg/dL (9.0-27.0); Glucose 112 mg/dL (70-110)
[2025-02-15 02:09] LABS: ALT 12 U/L (10-49); AST 19 U/L (14-35); Albumin 4.7 g/dL (3.8-4.9); Albumin/Globulin Ratio 1.81 Ratio (1.60-3.17); Alkaline Phosphatase 92 U/L (41-126); Anion Gap 12.50 mmol/L (4.00-12.00); Calcium 10.0 mg/dL (8.7-10.3); Carbon Dioxide 26.5 mmol/L (21.6-31.8); Chloride 100 mmol/L (96-109); Globulin 2.6 g/dL (1.6-3.3); Potassium 4.2 mmol/L (3.5-5.5); Sodium 139 mmol/L (135-145); Total Protein 7.3 g/dL (6.2-8.2)
== END | disposition home or self-care (01) ==
LOC: LABWHC1 13:45
PROVIDERS: ATTEND Thoracic Surgery (Cardiothoracic Vascular Surgery)
DX: G58.0 Intercostal neuropathy (principal)
CPT/HCPCS: 36415; 80053; 81003; 85027; 85610; 85730; 86850; 86900; 86901; 93005

== ENCOUNTER 2025-02-20 07:30 | Inpatient (IN) | payer MEDICARE, OTHER ==
[2025-02-20] MEDS ORDERED: HYDROmorphone 0.5 MG/0.5 ML SYRINGE IVP PRN (07:51)
[2025-02-20] MEDS: IV FLUID CONTINUATION 1,000 ML IV ONE ×2 (09:23)
[2025-02-20] MEDS: ONDANSETRON 4 MG/2 ML VIAL IVP ONE (09:30)
[2025-02-20] MEDS: LACTATED RINGERS 1,000 ML IV SCH (09:30)
[2025-02-20] MEDS: DEXAMETHASONE SOD PHOSPHATE 4 MG/ML 1 ML VIAL IV ONE (09:31)
[2025-02-20] MEDS: fentaNYL (PF) 50 MCG/ML 2 ML AMP IVP ONE (09:55)
[2025-02-20] MEDS: MIDAZOLAM 2 MG/2 ML VIAL IV PRN (09:55)
--- NOTE | 2025-02-20 12:19 | P.ANPRN ---
Procedure Note - Anesthesia - Nerve Block Performed Right Erector Spinae Single Time Out Performed: Yes ([id number]) Date of Procedure: 02/20/25 Procedure Start Time: 09:56 Procedure Stop Time: 10:00 Location of Patient: PreOp Indication: Acute Post-Operative Pain, Requested by Surgeon Specifically requested for management of pain by DrJanine: Rakesh Desir Sedation Type: Sedate with meaningful contact maintained Preparation: Sterile Prep Position: Sitting Catheter: None Needle Types: Pajunk Needle Gauge: 21 Ultrasound used to visualize needle placement: Yes Ultrasound used to observe medication spread: Yes Injectate: 0.5% Ropivacaine (see comment for volume) (30cc+decadron 4mg) Blood Aspirated: No Pain Paresthesia on Injection Noted: No Resistance on Injection: Normal Image Stored and Saved: Yes Events: Uneventful and Well Tolerated
--- NOTE | 2025-02-20 12:21 | P.ANPRN ---
Procedure Note - Anesthesia - Invasive Line Left Arterial Line Time Out Performed: Yes ([id number]) Date of Procedure: 02/20/25 Time of Procedure: 10:01 Location of Patient: PreOp Preparation: Sterile Prep, Sterile Dressing Arterial Line Location: Radial (right) Ultrasound Used: No Purpose - Visualization and Identification of Vasculature: No Needle Guage: 20g Image Stored and Saved: No Narrative: Invasive line placement per sterile protocol utilized. lumen bled and flushed. secured and dressed.
[2025-02-20] MEDS ORDERED: DEXAMETHASONE SOD PHOSPHATE 4 MG/ML 1 ML VIAL ONE (12:58)
[2025-02-20] MEDS ORDERED: KETAMINE HCL IN 0.9 % NACL 50 MG/5 ML SYRINGE ONE (12:58)
[2025-02-20] MEDS ORDERED: ROPIVACAINE 5 MG/ML 30 ML VIAL ONE (12:58)
[2025-02-20] MEDS ORDERED: MIDAZOLAM 2 MG/2 ML VIAL ONE (12:58)
[2025-02-20] MEDS ORDERED: SUCCINYLCHOLINE CHLORIDE 200 MG/10 ML VIAL IV ONE (12:58)
[2025-02-20] MEDS ORDERED: PROPOFOL 10 MG/ML 20 ML VIAL IV ONE (12:58)
[2025-02-20] MEDS ORDERED: ROCURONIUM 10 MG/ML (5 ML VIAL) IV ONE (12:58)
[2025-02-20] MEDS ORDERED: LIDOCAINE 1% INJ 10MG/ML (20 ML MDV) ONE (12:58)
[2025-02-20] MEDS ORDERED: fentaNYL (PF) 50 MCG/ML 2 ML AMP ONE (12:58)
[2025-02-20] MEDS ORDERED: PHENYLEPHRINE 10 MG/ML VIAL ONE (12:58)
[2025-02-20] MEDS ORDERED: GLYCOPYRROLATE 0.2 MG/ML 2 ML VIAL ONE (12:58)
[2025-02-20] MEDS ORDERED: NEOSTIGMINE 1 MG/ML 10 ML VIAL ONE (12:58)
[2025-02-20] MEDS: LIDOCAINE 1%-EPI 1:100,000 20 ML VIAL SQ ONE ×2 (13:49)
[2025-02-20] MEDS: BUPIVACAINE (PF) 0.25% 30 ML VIAL SQ ONE ×2 (13:49)
[2025-02-20 15:13] VITALS: TEMP 97
--- NOTE | 2025-02-20 15:29 | XR ---
EXAMINATION TYPE: XR chest 1V portable DATE OF EXAM: 02/20/2025 3:15 PM COMPARISON: Chest radiographs from 04/27/2024, outside institution CT chest 12/24/2024 TECHNIQUE: XR chest 1V portable Portable AP radiograph of the chest. CLINICAL INDICATION:Male, 64 years old with history of post lung surgery; FINDINGS: Lungs/Pleura: There is no evidence of pleural effusion, focal consolidation, or pneumothorax. Right nipple shadow identified. Pulmonary vascularity: Unremarkable. Heart/mediastinum: Cardiomediastinal silhouette is unremarkable. Musculoskeletal: No acute osseous pathology. IMPRESSION: Post lung surgery without discrete pneumothorax. [facility], , 02/20/2025 3:27 PM
--- NOTE | 2025-02-20 15:53 | P.OP ---
Date of Procedure: 02/20/25 Preoperative Diagnosis: Neuropathic pain post thoracoscopy Postoperative Diagnosis: Same Procedure(s) Performed: Right thoracoscopy with 3 level cryoablation Anesthesia: PAOLA Surgeon: Rakesh Desir Estimated Blood Loss (ml): 5 Pathology: none sent Condition: stable Disposition: PACU Indications for Procedure: Patient is roughly 1 year out from a right sided thoracoscopy, robotic assisted with lobectomy and mediastinal lymph node dissection. Since surgery he has complained of right sided chest discomfort and a feeling of pressure on his right upper abdomen that intensifies during the day. He feels this is potentially associated with some moderate to severe nausea as well as lightheadedness and has lost quite a bit of weight and is still experiencing significant early fatigue with activity. After discussion in the office about potential for cryoablation of these dermatomes the patient consented to try for pain relief and see if that would also potentially help his other symptoms and is here today for the procedure. Operative Findings: 1. Minimal amount of adhesive scar tissue with no evidence of pleural violation on entry or during the procedure Identification of appropriate dermatomes for cryoablation with successful cryoablation of 3 dermatomes associated with previous incisions Description of Procedure: After consent was obtained the patient was brought to the operating room where he underwent general by dual-lumen endotracheal tube anesthesia with bronchoscopic confirmation. The patient was then placed in left lateral decubitus position and prepped and draped in sterile fashion. His incisions were marked and prior to injection of local anesthetic for intercostal nerve block, a timeout was observed whereby the patient, the procedure, the site, the side, personnel, antibiotic delivery and films up in the room were all confirmed. We then proceeded to inject 1 rib space above a previous entry site in hopes of avoiding any scar tissue. We were fortunately able to gain access to the chest with no lung injury and placed a 5 mm trocar sheath. We then placed the camera and under direct vision of the scope we were able to identify that there was no scar tissue on our second counterincision and inject that area under direct vision of the scope for a second level intercostal nerve block. Once that was accomplished we made incision and entered the chest with a second 5 mm noncutting trocar sheath replacing the camera to the lower incision site and using a linear cryoablation probe through the initial incision site. We were then able to identify ribs by palpation of the chest wall under direct vision the scope to assure we were at the proper level affected by the previous incision causing the neuropathic pain. We were then able to use the linear cryoablation probe to perform 2 cryoablation lesions at each intercostal nerve for the superior middle and inferior most affected nerves. Once this was accomplished we removed the cryoablation probe and there was no evidence of visceral pleural injury at that point. We are then able to place a red rubber catheter in the anteriormost incision which was also the highest in the chest. We placed the patient in partial Trendelenburg position making the red rubber catheter to the highest point in the chest and then began to lung ventilation with intermittent Valsalva to force the air from the chest with the red rubber catheter under saline to see when the bubbles stopped. During this time we placed 2 buried interrupted 2-0 Vicryl sutures 1 in each incision tying the first 1 down and having the second 1 ready to tie at the incision site where the red rubber catheter was venting the pneumothorax. When the bubbles stopped under Valsalva we were able to remove the red rubber catheter under Valsalva and continued Valsalva during tying down of the stitch to seal the chest cavity and then began regular to long ventilation while we placed two 4-0 interrupted Monocryl sutures in the skin to complete closure. Patient was then dressed with skin glue dressing and able to be rolled supine and extubated and taken to PACU where he had no evidence of pneumothorax on chest x-ray. His family was updated as to the procedure details and that the patient might be able to discharge home day of surgery.
[2025-02-20 16:14] VITALS: BP 122/70; PULSE 65; RESP 16
== END 2025-02-20 16:45 | disposition home or self-care (01) | DRG 30 ==
LOC: 2ORMAIN 08:52
PROVIDERS: ADMIT Thoracic Surgery (Cardiothoracic Vascular Surgery); ATTEND Thoracic Surgery (Cardiothoracic Vascular Surgery)
PROC: 01584ZZ Destruction of Thoracic Nerve, Percutaneous Endoscopic Approach (ICD-10-PCS; principal; 2025-02-20 10:00)
DX: G58.0 Intercostal neuropathy (principal); E78.5 Hyperlipidemia, unspecified; I10 Essential (primary) hypertension; R11.2 Nausea with vomiting, unspecified; H54.62 Unqualified visual loss, left eye, normal vision right eye; F41.9 Anxiety disorder, unspecified; F17.210 Nicotine dependence, cigarettes, uncomplicated; Z85.118 Personal history of other malignant neoplasm of bronchus and lung; Z90.2 Acquired absence of lung [part of]; Z86.61 Personal history of infections of the central nervous system; Z79.899 Other long term (current) drug therapy; Z79.82 Long term (current) use of aspirin; Z88.2 Allergy status to sulfonamides
CPT/HCPCS: 64466; 71045